=== PATIENT | female | born 1950 | race Caucasian/White ===

== ENCOUNTER 2016-11-19 04:28 | Observation (INO) | payer MEDICARE ==
[2016-11-19] MEDS ORDERED: ASPIRIN 81 MG CHEW PO STA (04:50)
[2016-11-19] MEDS ORDERED: NITROGLYCERIN OINT 1 INCH/GM PACKET TOPICAL STA (04:50)
[2016-11-19] MEDS ORDERED: RX INFO: IV CONTRAST WAS GIVEN 1 EACH MISC MISCELLANE PRN (04:54)
--- NOTE | 2016-11-19 04:54 | ED ---
General Adult HPI - General Source: patient, family, RN notes reviewed Mode of arrival: wheelchair Limitations: no limitations <Mich De Jesus - Last Filed: 11/19/16 04:52> <Aristeo Florez - Last Filed: 11/19/16 08:03> - General Chief complaint: Chest Pain Stated complaint: Chest Pains, nausea Time Seen by Provider: 11/19/16 04:35 - History of Present Illness Initial comments: Patient is a pleasant 66-year-old female presenting to the emergency department complaining of chest discomfort. Onset was a couple days ago. Discomfort has been somewhat steady. Patient has sharp discomfort or 3 patient towards the back. Discomfort is not positional. Discomfort is not exertional. No dyspnea. Patient has been nauseated. No diaphoresis. No history of similar symptoms previously. Symptoms did get somewhat worse earlier however have improved. Discomfort is currently rated 3 or 4/10. (Mich De Jesus) - Related Data Home Medications Medication Instructions Recorded Confirmed Divalproex ER [Depakote ER] 750 mg PO HS 01/05/16 11/19/16 Escitalopram [Lexapro] 20 mg PO HS 01/05/16 11/19/16 LORazepam [Ativan] 0.25 - 0.5 mg PO HS PRN 01/05/16 11/19/16 Levothyroxine Sodium [Synthroid] 50 mcg PO DAILY 01/05/16 11/19/16 Lisinopril [Zestril] 10 mg PO DAILY 01/05/16 11/19/16 Naproxen Sodium [Aleve] 220 - 440 mg PO Q12HR PRN 01/05/16 11/19/16 Simvastatin [Zocor] 40 mg PO HS 01/05/16 11/19/16 Actos (Unknown Strength) 1 tab PO DAILY 11/19/16 11/19/16 Canagliflozin [Invokana] 300 mg PO DAILY 11/19/16 11/19/16 Allergies Allergy/AdvReac Type Severity Reaction Status Date / Time No Known Allergies Allergy Verified 11/19/16 07:35 Review of Systems ROS Other: All systems not noted in ROS Statement are negative. Constitutional: Denies: fever Eyes: Denies: eye pain ENT: Denies: ear pain Respiratory: Denies: cough, dyspnea Cardiovascular: Reports: chest pain Endocrine: Denies: fatigue Gastrointestinal: Reports: nausea. Denies: abdominal pain, vomiting Genitourinary: Denies: urgency Musculoskeletal: Denies: back pain Skin: Denies: rash Neurological: Denies: weakness <NealMich - Last Filed: 11/19/16 04:52> ROS Other: All systems not noted in ROS Statement are negative. <Aristeo Florez - Last Filed: 11/19/16 08:03> ROS Statement: Those systems with pertinent positive or pertinent negative responses have been documented in the HPI. Past Medical History Past Medical History: Diabetes Mellitus, Hyperlipidemia, Hypertension, Thyroid Disorder History of Any Multi-Drug Resistant Organisms: None Reported Past Surgical History: Appendectomy, Cholecystectomy, Hysterectomy Additional Past Surgical History / Comment(s): AORTA REPAIR Past Psychological History: Bipolar Smoking Status: Former smoker Past Alcohol Use History: None Reported Past Drug Use History: None Reported <De JesusMich Maxime Last Filed: 11/19/16 04:52> General Exam Limitations: no limitations General appearance: alert, in no apparent distress Head exam: Present: atraumatic Eye exam: Present: normal appearance, PERRL ENT exam: Present: normal oropharynx Neck exam: Present: normal inspection Respiratory exam: Present: normal lung sounds bilaterally. Absent: chest wall tenderness Cardiovascular Exam: Present: regular rate, normal rhythm Expanded Peripheral pulses: 2+: Radial (R), Radial (L), Dorsalis Pedis (R), Dorsalis Pedis (L) GI/Abdominal exam: Present: soft. Absent: distended, tenderness, guarding, rebound, rigid, pulsatile mass Extremities exam: Present: normal inspection. Absent: pedal edema, calf tenderness Back exam: Present: normal inspection. Absent: tenderness Neurological exam: Present: alert Psychiatric exam: Present: normal affect, normal mood Skin exam: Present: normal color <NealMich Swartz Last Filed: 11/19/16 04:52> General appearance: alert, in no apparent distress Head exam: Present: atraumatic, normocephalic, normal inspection Eye exam: Present: normal appearance, PERRL, EOMI. Absent: scleral icterus, conjunctival injection, periorbital swelling ENT exam: Present: normal exam, mucous membranes moist Neck exam: Present: normal inspection. Absent: tenderness, meningismus, lymphadenopathy Respiratory exam: Present: normal lung sounds bilaterally. Absent: respiratory distress, wheezes, rales, rhonchi, stridor Cardiovascular Exam: Present: regular rate, normal rhythm, normal heart sounds. Absent: systolic murmur, diastolic murmur, rubs, gallop, clicks GI/Abdominal exam: Present: soft, normal bowel sounds. Absent: distended, tenderness, guarding, rebound, rigid Extremities exam: Present: normal inspection, full ROM, normal capillary refill. Absent: tenderness, pedal edema, joint swelling, calf tenderness Back exam: Present: normal inspection Neurological exam: Present: alert, oriented X3, CN II-XII intact Psychiatric exam: Present: normal affect, normal mood Skin exam: Present: warm, dry, intact, normal color. Absent: rash <Aristeo Florez - Last Filed: 11/19/16 08:03> Course <Mich De Jesus - Last Filed: 11/19/16 04:52> <Aristeo Florez - Last Filed: 11/19/16 08:03> Vital Signs 11/19/16 11/19/16 11/19/16 04:33 04:49 05:40 Temperature 98.5 F Pulse Rate 79 78 78 Respiratory 16 18 18 Rate Blood Pressure 214/93 187/90 152/78 O2 Sat by Pulse 89 L 98 100 Oximetry 11/19/16 11/19/16 06:15 06:56 Temperature Pulse Rate 88 75 Respiratory 18 16 Rate Blood Pressure 196/91 159/96 O2 Sat by Pulse 97 100 Oximetry - Reevaluation(s) Reevaluation #1: 11/19/16 08:02 Patient at this point remains with chest pain (Aristeo Florez) EKG Findings - EKG Comments: EKG Findings:: Normal sinus rhythm 78. NC 156. QRS 78. QT 440. QTc 501. Left axis. Normal QRS. Nonspecific T waves. <Mich De Jesus - Last Filed: 11/19/16 04:52> Medical Decision Making <Mich De Jesus - Last Filed: 11/19/16 04:52> - Lab Data Result diagrams: 11/19/16 04:45 11/19/16 04:45 - Radiology Data Radiology results: report reviewed (CTA negative for PE), image reviewed <Aristeo Florez - Last Filed: 11/19/16 08:03> - Medical Decision Making 66 female here with anterior chest pain, anterior chest pain rating to her back. Patient is a CK negative for PE negative for aortic injury or dissection , no aneurysm, patient will be admitted for cardiac observation, telemetry serial troponins. (Aristeo Florez) - Lab Data Lab Results 11/19/16 11/19/16 11/19/16 Range/Units 04:45 04:45 04:45 WBC 9.3 (3.8-10.6) k/uL RBC 5.10 (3.80-5.40) m/uL Hgb 16.0 (11.4-16.0) gm/dL Hct 47.2 H (34.0-46.0) % MCV 92.6 (80.0-100.0) fL MCH 31.5 (25.0-35.0) pg MCHC 34.0 (31.0-37.0) g/dL RDW 13.4 (11.5-15.5) % Plt Count 216 (150-450) k/uL Neutrophils % 47 % Lymphocytes % 42 % Monocytes % 8 % Eosinophils % 1 % Basophils % 1 % Neutrophils # 4.3 (1.3-7.7) k/uL Lymphocytes # 3.9 (1.0-4.8) k/uL Monocytes # 0.7 (0-1.0) k/uL Eosinophils # 0.1 (0-0.7) k/uL Basophils # 0.0 (0-0.2) k/uL PT (9.0-12.0) sec INR (<1.1) APTT (22.0-30.0) sec Sodium 141 (137-145) mmol/L Potassium 4.2 (3.5-5.1) mmol/L Chloride 104 (98-107) mmol/L Carbon Dioxide 26 (22-30) mmol/L Anion Gap 11 mmol/L BUN 12 (7-17) mg/dL Creatinine 0.60 (0.52-1.04) mg/dL Est GFR (MDRD) Af Amer >60 (>60 ml/min/1.73 sqM) Est GFR (MDRD) Non-Af >60 (>60 ml/min/1.73 sqM) Glucose 184 H (74-99) mg/dL Calcium 10.4 H (8.4-10.2) mg/dL Magnesium 1.7 (1.6-2.3) mg/dL Total Bilirubin 0.6 (0.2-1.3) mg/dL AST 52 H (14-36) U/L ALT 59 H (9-52) U/L Alkaline Phosphatase 91 (38-126) U/L Total Creatine Kinase 28 L (30-135) U/L CK-MB (CK-2) 0.3 (0.0-2.4) ng/mL CK-MB (CK-2) Rel Index 1.1 Troponin I <0.012 (0.000-0.034) ng/mL Total Protein 7.7 (6.3-8.2) g/dL Albumin 4.6 (3.5-5.0) g/dL 11/19/ Range/Units 04:45 WBC (3.8-10.6) k/uL RBC (3.80-5.40) m/uL Hgb (11.4-16.0) gm/dL Hct (34.0-46.0) % MCV (80.0-100.0) fL MCH (25.0-35.0) pg MCHC (31.0-37.0) g/dL RDW (11.5-15.5) % Plt Count (150-450) k/uL Neutrophils % % Lymphocytes % % Monocytes % % Eosinophils % % Basophils % % Neutrophils # (1.3-7.7) k/uL Lymphocytes # (1.0-4.8) k/uL Monocytes # (0-1.0) k/uL Eosinophils # (0-0.7) k/uL Basophils # (0-0.2) k/uL PT 11.5 (9.0-12.0) sec INR 1.1 (<1.1) APTT 24.8 (22.0-30.0) sec Sodium (137-145) mmol/L Potassium (3.5-5.1) mmol/L Chloride (98-107) mmol/L Carbon Dioxide (22-30) mmol/L Anion Gap mmol/L BUN (7-17) mg/dL Creatinine (0.52-1.04) mg/dL Est GFR (MDRD) Af Amer (>60 ml/min/1.73 sqM) Est GFR (MDRD) Non-Af (>60 ml/min/1.73 sqM) Glucose (74-99) mg/dL Calcium (8.4-10.2) mg/dL Magnesium (1.6-2.3) mg/dL Total Bilirubin (0.2-1.3) mg/dL AST (14-36) U/L ALT (9-52) U/L Alkaline Phosphatase (38-126) U/L Total Creatine Kinase (30-135) U/L CK-MB (CK-2) (0.0-2.4) ng/mL CK-MB (CK-2) Rel Index Troponin I (0.000-0.034) ng/mL Total Protein (6.3-8.2) g/dL Albumin (3.5-5.0) g/dL Critical Care Time Critical Care Time: Yes Total Critical Care Time: 31 <Aristeo Florez - Last Filed: 11/19/16 08:03> Disposition <Mich De Jesus - Last Filed: 11/19/16 04:52> <Aristeo Florez - Last Filed: 11/19/16 08:03> Clinical Impression: Chest pain Disposition: ADMITTED IP TO THIS HOSP Condition: Undetermined Instructions: Chest Pain (ED) Referrals: Tracie Sams MD [Primary Care Provider] - 1-2 days
[2016-11-19 05:10] LABS: Basophils % (A) 1 %; CH 31.9; CHCM 34.6; Eosinophils # (A) 0.1 k/uL (0-0.7); Eosinophils % (A) 1 %; HCT 47.2 % (34.0-46.0); HDW 2.57; Luc # (Auto) 0.25; Luc % (Auto) 3; Lymphocytes # (A) 3.9 k/uL (1.0-4.8); Lymphocytes % (A) 42 %; MCH 31.5 pg (25.0-35.0); MCV 92.6 fL (80.0-100.0); Mean Platelet Volume 8.2; Monocytes # (A) 0.7 k/uL (0-1.0); Monocytes % (A) 8 %; Neutrophils # (A) 4.3 k/uL (1.3-7.7); Neutrophils % (A) 47 %; RDW 13.4 % (11.5-15.5); WBC 9.3 k/uL (3.8-10.6); WBC (Perox) 9.22
[2016-11-19 05:21] LABS: ALT 59 U/L (9-52); AST 52 U/L (14-36); Alkaline Phosphatase 91 U/L (38-126); Anion Gap 11 mmol/L; Blood Urea Nitrogen 12 mg/dL (7-17); Calcium 10.4 mg/dL (8.4-10.2); Carbon Dioxide 26 mmol/L (22-30); Chloride 104 mmol/L (98-107); Glucose 184 mg/dL (74-99); Magnesium 1.7 mg/dL (1.6-2.3); Non-African American GFR(MDRD) >60 (>60 ml/min/1.73 sqM); Potassium 4.2 mmol/L (3.5-5.1); Sodium 141 mmol/L (137-145); Total Bilirubin 0.6 mg/dL (0.2-1.3); Total Protein 7.7 g/dL (6.3-8.2)
[2016-11-19 05:30] LABS: Creatine Kinase 28 U/L (30-135)
[2016-11-19 05:33] LABS: INR 1.1 (<1.1); Partial Thromboplastin Time 24.8 sec (22.0-30.0); Prothrombin Time 11.5 sec (9.0-12.0)
[2016-11-19 05:44] LABS: Creatine Kinase MB 0.3 ng/mL (0.0-2.4); Troponin I <0.012 ng/mL (0.000-0.034)
[2016-11-19] MEDS ORDERED: LISINOPRIL 10 MG TAB PO STA (06:17)
--- NOTE | 2016-11-19 07:22 | CT ---
CTA CHEST, ABDOMEN AND PELVIS WITHOUT AND WITH CONTRAST. History: Reason: Pain Technique more: Multiplanar CT chest, abdomen and pelvis with and without contrast using dissection protocol. Reformatted images in the sagittal and coronal planes obtained on noncontrast portion of exam along with MIP images in the coronal and sagittal plane on arterial phase imaging. This CT exam was performed using one or more of the following dose reduction techniques: automated exposure control, adjustment of the mA and/or kV according to patient size, and/or use of iterative reconstruction technique. DLP: 897.20 mGy- cm. Comparison: 06/12/14 CT ABDOMEN AND PELVIS FINDINGS: Vascular findings: Borderline ectasia of the ascending aorta which measures slightly less than 4 cm maximum caliber. Aneurysmal thoracic aorta defined as 5 cm with ectatic between 4-5 cm. No AAA. Atherosclerotic changes. No dissection. Vascular surgical changes again noted with aortoiliac grafts. Grafts are patent. There is good flow through the imaged femoral arteries on arterial phase imaging. 5 mm axial slice thickness limits evaluation for small peripheral PE. No central PE. Non vascular findings: Small hiatal hernia. Cardiomegaly. Atelectasis. No consolidation. No CT evidence for edema. No effusions. No urinary calculi or hydronephrosis. No evidence for acute pancreatitis. Diverticulosis without diverticulitis. Ventral hernia mesh. Similar-appearing mild fat herniation. No visceral herniation. No bowel obstruction. Old granulomatous disease. Cholecystectomy. Appendix is not identified with confidence. Possible appendiceal stump versus normal diminutive retrocecal appendix or diverticula. There is suspected surgical changes in the right lower quadrant. Query prior appendectomy. No right lower quadrant inflammatory process. Left renal cyst. No evidence for acute pancreatitis. Osseous degenerative changes. IMPRESSION: No aortic aneurysm or dissection. Vascular surgical changes with patent aortoiliac grafts. Other findings as discussed in body of report.
[2016-11-19] MEDS ORDERED: HEPARIN SODIUM,PORCINE 5,000 UNIT/ML 1 ML VIAL IV ONE (07:57)
[2016-11-19] MEDS ORDERED: NITROGLYCERIN SL TABS 0.4 MG TAB SUBLINGUAL PRN (07:57)
[2016-11-19] MEDS ORDERED: HEPARIN SODIUM,PORCINE/D5W PMX 25,000 UNIT in DEXTROSE/WATER 1 500ML.BAG IV SCH (08:00)
[2016-11-19] MEDS ORDERED: SODIUM CHLORIDE 0.9% 1,000 ML IV STA ×2 (08:09)
[2016-11-19] MEDS ORDERED: MORPHINE SULFATE 4 MG/ML SYRINGE IVP STA (08:09)
[2016-11-19] MEDS ORDERED: SODIUM CHLORIDE 0.9% 500 ML IV STA (08:09)
[2016-11-19] MEDS ORDERED: MORPHINE SULFATE 4 MG/ML SYRINGE IVP PRN (08:09)
[2016-11-19 08:58] VITALS: RESP 18
[2016-11-19] MEDS ORDERED: ATORVASTATIN 80 MG TAB PO SCH ×2 (09:00→21:00)
[2016-11-19] MEDS ORDERED: METOPROLOL TARTRATE 25 MG TAB PO SCH (10:30)
[2016-11-19 11:14] LABS: Creatine Kinase 27 U/L (30-135)
[2016-11-19 11:26] LABS: Creatine Kinase MB 0.2 ng/mL (0.0-2.4); Troponin I <0.012 ng/mL (0.000-0.034)
[2016-11-19] MEDS ORDERED: LORazepam 0.5 MG TAB PO PRN (11:28)
--- NOTE | 2016-11-19 11:36 | P.HPIM ---
History of Present Illness H&P Date: 11/19/16 Chief Complaint: Chest pain This is a 66-year-old female with past medical history noted below significant for type 2 diabetes mellitus, essential hypertension, and hyperlipidemia who presented to the emergency room with chest pain. Patient said that her pain started couple of days ago. Initially she was not concerned about it and she thought it was more of acid reflux. Subsequently the pain is getting worse. She described her pain as sharp in nature. There was no radiation and was located in the middle of her chest. She said her pain was associated with nausea and some lightheadedness. She rates her pain as 10 out of 10 in severity at its worse. She was more concerned last night and decided to come to the emergency room. In the emergency room, 12-lead EKG showed no acute ischemic changes. First 2 sets of troponin were negative. Patient was started on IV heparin drip and is admitted to the observation unit. She underwent a CT angiogram in the emergency room that was negative for any aortic dissection. Review of Systems Review of system: 14 points review of systems were obtained and were negative except to what were mentioned in the HPI. Past Medical History Past Medical History: Diabetes Mellitus, Hyperlipidemia, Hypertension, Pneumonia , Thyroid Disorder Additional Past Medical History / Comment(s): NIDDM type II, hypothyroid, PAD, bronchitis, sinus problems, back pain with R sided sciatica, RLS. History of Any Multi-Drug Resistant Organisms: None Reported Past Surgical History: Appendectomy, Breast Surgery, Cholecystectomy, Hernia Repair, Hysterectomy, Tubal Ligation Additional Past Surgical History / Comment(s): Aortobifemoral bypass, ventral hernia repair, colonoscopy with benign polypectomy, bilateral cataract removal with lens implants, benign L breast bx. Past Anesthesia/Blood Transfusion Reactions: No Reported Reaction, Motion Sickness Past Psychological History: Bipolar Additional Psychological History / Comment(s): Pt states she is well managed with her medication for her bipolar disease. She resides with her spouse and is independent. Smoking Status: Former smoker Past Alcohol Use History: None Reported Additional Past Alcohol Use History / Comment(s): Pt started smoking in 1963 and quit in 2008. Past Drug Use History: None Reported - Past Family History Father Family Medical History: Cancer Additional Family Medical History / Comment(s): Father of prostate cancer at the age of 84 yrs. Mother Additional Family Medical History / Comment(s): Mother had heart problems and at the age of 64yrs. Pt states her mother never had a PR. Medications and Allergies Home Medications Medication Instructions Recorded Confirmed Type Divalproex ER [Depakote ER] 750 mg PO HS 01/05/16 11/19/16 History Escitalopram [Lexapro] 20 mg PO HS 01/05/16 11/19/16 History LORazepam [Ativan] 0.25 - 0.5 mg PO HS PRN 01/05/16 11/19/16 History Levothyroxine Sodium [Synthroid] 50 mcg PO DAILY 01/05/16 11/19/16 History Lisinopril [Zestril] 10 mg PO DAILY 01/05/16 11/19/16 History Naproxen Sodium [Aleve] 220 - 440 mg PO Q12HR PRN 01/05/16 11/19/16 History Simvastatin [Zocor] 40 mg PO HS 01/05/16 11/19/16 History Canagliflozin/Metformin HCl 1 tab PO DAILY 11/19/16 11/19/16 History [Invokamet 150-1,000 mg Tablet] Pioglitazone [Actos] 45 mg PO DAILY 11/19/16 11/19/16 History Allergies Allergy/AdvReac Type Severity Reaction Status Date / Time No Known Allergies Allergy Verified 11/19/16 07:35 Physical Exam Vitals: Vital Signs Temp Pulse Pulse Resp BP BP Pulse Ox 11/19/16 09:50 71 18 11/19/16 09:28 97.6 F 71 18 121/58 92 L 11/19/16 08:57 97.9 F 76 18 134/63 97 11/19/16 08:00 80 18 156/77 97 11/19/16 06:56 75 16 159/96 100 11/19/16 06:15 88 18 196/91 97 11/19/16 05:40 78 18 152/78 100 11/19/16 04:49 78 18 187/90 98 11/19/16 04:33 98.5 F 79 16 214/93 89 L Intake and Output 11/18/16 11/19/16 11/19/16 22:59 06:59 14:59 Other: Voiding Method Toilet Weight 59.874 kg 62 kg Patient Weight 11/20/16 06:59 Weight 62 kg General: The patient is awake and alert, in no distress Eye: there is normal conjunctiva bilaterally. Neck: The neck is supple, there is no JVD. Cardiovascular: Normal S1-S2, no S3-S4, no murmurs. Respiratory: Lungs clear to auscultation bilaterally Gastrointestinal: Abdomen is soft, nontender Musculoskeletal: There is no pedal edema. Neurological:. Speech is normal. Skin: Skin is warm and dry Results CBC & Chem 7: 11/19/16 04:45 11/19/16 04:45 Labs: Abnormal Lab Results - Last 24 Hours (Table) 11/19/16 11/19/16 11/19/16 Range/Units 04:45 04:45 04:45 Hct 47.2 H (34.0-46.0) % Glucose 184 H (74-99) mg/dL Calcium 10.4 H (8.4-10.2) mg/dL AST 52 H (14-36) U/L ALT 59 H (9-52) U/L Total Creatine Kinase 28 L (30-135) U/L 11/19/16 Range/Units 10:20 Hct (34.0-46.0) % Glucose (74-99) mg/dL Calcium (8.4-10.2) mg/dL AST (14-36) U/L ALT (9-52) U/L Total Creatine Kinase 27 L (30-135) U/L Thrombosis Risk Factor Assmnt - Choose All That Apply Any of the Below Risk Factors Present?: Yes Other Risk Factors: Yes Each Risk Factor Represents 2 Points: Age 61-74 years Other congenital or acquired thrombophilia - If yes, enter type in comment: No Thrombosis Risk Factor Assessment Total Risk Factor Score: 2 Thrombosis Risk Factor Assessment Level: Low Risk Assessment and Plan Plan: 1. Chest pain with typical and atypical features. 12 leads EKG showed no acute ischemic changes. CT angiogram in the emergency room showed no evidence of aortic dissection. Patient was seen and evaluated by cardiology. Third set of troponin ordered. If that's negative plan is to proceed with cardiac stress testing. 2. Essential hypertension: Blood pressure well-controlled 3. Mixed hyperlipidemia: Will check fasting lipid profile 4. Type 2 diabetes mellitus: Hold oral agents for now and continue sliding scale insulin
[2016-11-19] MEDS ORDERED: REGADENOSON 0.4 MG/5 ML SYRINGE IV ONE (11:57)
[2016-11-19] MEDS ORDERED: AMINOPHYLLINE 500 MG/20 ML VIAL IV PRN (11:57)
--- NOTE | 2016-11-19 12:04 | CONS ---
DATE OF CONSULTATION: Mrs. Lubin is a 66-year-old female who came to the emergency room with the complaint of chest discomfort. Patient gives a history that she has been having this chest discomfort for a couple of days. The pain is sharp, also radiates towards the back and somewhat steady. Pain does increase at times with breathing. She denies any nausea. Patient has been slightly nauseated. No vomiting. Patient denies any history of exertional angina. Patient denies any prior history of myocardial infarction. Patient does have a history of peripheral vascular disease with aortobifemoral surgery done in 2008. Her physical activities are limited. However, she is not having any significant intermittent claudication. Patient has a history of diabetes. Home medications include Depakote, Lexapro, Ativan, Synthroid, Zestril, Zocor and Invokana. Past medical history includes a history of diabetes, hyperlipidemia, hypertension, history of thyroid disorder, appendectomy, cholecystectomy, hysterectomy and aortobifemoral surgery. Patient does have a smoking history, patient is a former smoker. Physical examination at present reveals a 66-year-old female who does not appear to be in any acute distress. Patient's vital signs were stable in the emergency room. Blood pressure is 121/58 mmHg, heart rate is 70 per minute, respiratory rate is 18. HEENT examination is negative. Neck is supple. There is no increase in jugular venous pressure. Both the carotid pulses are felt. There is no bruit. Chest is symmetrical. HEART: The PMI is not felt. First and second heart sounds are normal. There is no evidence of any murmur. Lungs are clinically clear to auscultation and percussion. Abdomen is soft. Liver and spleen are not enlarged. EXTREMITIES: Peripheral pulsations are not felt. Both femoral pulses are felt. EKG shows a normal sinus rhythm without any acute ischemic changes. The first set of troponin was normal. Patient's electrolytes are normal. Creatinine is 0.6. FINAL IMPRESSION: 1. Clinically, this patient's chest pains are suggestive of atypical angina. 2. Patient has a history of diabetes. 3. History of peripheral vascular disease with status post aortobifemoral surgery. The CAT scan does not show any evidence of dissection or any evidence of dilated aorta. RECOMMENDATIONS: We will wait for the second troponin. If the troponin is negative, we will schedule the patient for Lexiscan Cardiolite study, echo and Doppler study will be done. We will treat the patient with Lipitor 80 mg daily.
[2016-11-19 12:23] LABS: Glucose,Whole Blood 140 mg/dL (75-99)
--- NOTE | 2016-11-19 14:12 | EST ---
DATE OF SERVICE: 11/19/2016 AGE: 66Y SEX: F HT: 60" WT: 136 lbs. Lexiscan Cardiolite Stress Test *Heart Rate Blood Pressure *Rest: 63 Rest: 129/63 * *Max. Achieved: 63 Maximum BP: 129/63 85% PMHR: 129 100% PMHR: 152 *METS: - INDICATIONS: Chest pain. MEDICATIONS: - Patient was given Lexiscan injection over a period of 15 seconds. Peak heart rate of 63 was achieved. Maximum blood pressure of 129/63 mmHg of mercury was noted. Resting EKG shows normal sinus rhythm with normal RI interval and QRS duration and normal ST-T waves. No ST segment depression suggestive of ischemia was noted. Results of the nuclear study will follow.
--- NOTE | 2016-11-19 14:56 | NM ---
EXAMINATION TYPE: NM stress lexiscan cardiolite DATE OF EXAM: 11/19/2016 COMPARISON: NONE HISTORY: Chest pain TECHNIQUE: After the intravenous administration of 10.6 mCi Tc 99m Sestamibi - Cardiolite resting SP ECT images acquired 45 minutes post injection. The patient received 0.4mg Lexiscan, 25 mCi Tc 99m Sestamibi - Stress images obtained 30 minutes post injection FINDINGS: Review of stress and rest SPECT images demonstrates no distinct perfusion abnormality. Gated analysi s shows normal wall motion with an estimated left ventricular ejection fraction of 69 %. IMPRESSION: No scintigraphic evidence for reversible ischemia.
[2016-11-19 16:05] LABS: Creatine Kinase 26 U/L (30-135)
[2016-11-19 16:19] LABS: Creatine Kinase MB 0.3 ng/mL (0.0-2.4); Troponin I <0.012 ng/mL (0.000-0.034)
--- NOTE | 2016-11-19 16:59 | P.DS ---
Providers Date of admission: 11/19/16 08:02 Expected date of discharge: 11/19/16 Attending physician: Katie Bailey Consults: 11/19/16 07:58 Consult Physician Urgent Consulting Provider: Ellis Shearer Reason/Comments: cp Do you want consulting provider notified?: Yes Primary care physician: Tracie Sams [facility] Course: 1. Chest pain with typical and atypical features. 12 leads EKG showed no acute ischemic changes. CT angiogram in the emergency room showed no evidence of aortic dissection. Patient was seen and evaluated by cardiology. She underwent a Lexiscan cardiac stress test that was negative. She was cleared for discharge home. 2. Essential hypertension: Blood pressure well-controlled 3. Mixed hyperlipidemia 4. Type 2 diabetes mellitus Patient Condition at Discharge: Undetermined Plan - Discharge Summary New Discharge Prescriptions: No Action Lisinopril [Zestril] 10 mg PO DAILY Levothyroxine Sodium [Synthroid] 50 mcg PO DAILY Simvastatin [Zocor] 40 mg PO HS LORazepam [Ativan] 0.25 - 0.5 mg PO HS PRN PRN Reason: Insomnia Escitalopram [Lexapro] 20 mg PO HS Divalproex ER [Depakote ER] 750 mg PO HS Naproxen Sodium [Aleve] 220 - 440 mg PO Q12HR PRN PRN Reason: Pain Canagliflozin/Metformin HCl [Invokamet 150-1,000 mg Tablet] 1 tab PO DAILY Pioglitazone [Actos] 45 mg PO DAILY Discharge Medication List Divalproex ER [Depakote ER] 750 mg PO HS 01/05/16 [History] Escitalopram [Lexapro] 20 mg PO HS 01/05/16 [History] LORazepam [Ativan] 0.25 - 0.5 mg PO HS PRN 01/05/16 [History] Levothyroxine Sodium [Synthroid] 50 mcg PO DAILY 01/05/16 [History] Lisinopril [Zestril] 10 mg PO DAILY 01/05/16 [History] Naproxen Sodium [Aleve] 220 - 440 mg PO Q12HR PRN 01/05/16 [History] Simvastatin [Zocor] 40 mg PO HS 01/05/16 [History] Canagliflozin/Metformin HCl [Invokamet 150-1,000 mg Tablet] 1 tab PO DAILY 11/19 [History] Pioglitazone [Actos] 45 mg PO DAILY 11/19/16 [History] Follow up Appointment(s)/Referral(s): Tracie Sams MD [Primary Care Provider] - 1-2 days Patient Instructions/Handouts: Chest Pain (ED)
[2016-11-19 17:18] LABS: Glucose,Whole Blood 171 mg/dL (75-99)
[2016-11-19 17:20] VITALS: BP 109/45; PULSE 69; TEMP 97.7
[2016-11-19] MEDS ORDERED: DIVALPROEX ER 250 MG TAB.ER.24H PO SCH (21:00)
[2016-11-19] MEDS ORDERED: ESCITALOPRAM 20 MG TAB PO SCH (21:00)
[2016-11-20] MEDS ORDERED: LEVOTHYROXINE 50 MCG TAB PO SCH (06:30)
[2016-11-20] MEDS ORDERED: LISINOPRIL 10 MG TAB PO SCH (09:00)
[2016-11-20] MEDS ORDERED: ASPIRIN 325 MG TAB PO SCH (09:00)
--- NOTE | 2016-11-20 10:08 | ECHOF ---
Referral Reason: MEASUREMENTS -------- HEIGHT: 152.4 cm WEIGHT: 61.7 kg BP: 121/58 RVIDd: 3.0 cm (< 3.3) IVSd: 1.0 cm (0.6 - 1.1) LVIDd: 4.4 cm (3.9 - 5.3) LVPWd: 1.0 cm (0.6 - 1.1) IVSs: 1.6 cm LVIDs: 2.8 cm LVPWs: 1.7 cm LAESV Index (A-L): 15.00 ml/m Ao Diam: 3.4 cm (2.0 - 3.7) AV Cusp: 1.6 cm (1.5 - 2.6) LA Diam: 2.8 cm (2.7 - 3.8) MV E Vinnie: 1.02 m/s MV DecT: 318 ms MV A Vinnie: 1.27 m/s MV E/A Ratio: 0.80 RAP: 5.00 mmHg RVSP: 27.13 mmHg FINDINGS -------- Sinus rhythm. This was a technically adequate study. Overall left ventricular systolic function is normal with, an EF between 55 - 60 %. The right ventricle is normal in size and function. Normal LA size by volume 22+/-6 ml/m2. The right atrium is normal in size. Aortic valve is trileaflet and is mildly thickened. There is no evidence of aortic regurgitation. There is no evidence of aortic stenosis. Mild mitral annular calcification present. There is trace to mild mitral regurgitation. Trace tricuspid regurgitation present. There is no evidence of pulmonary hypertension. The right ventricular systolic pressure, as measured by Doppler, is 27.13mmHg. The pulmonic valve was not well visualized. The aortic root size is normal. Normal inferior vena cava with normal inspiratory collapse consistent with estimated right atrial pressure of 5 mmHg. The pericardium is normal. There is no pericardial effusion. CONCLUSIONS -------- 1. Sinus rhythm. 2. The right ventricular systolic pressure, as measured by Doppler, is 27.13mmHg. 3. The pulmonic valve was not well visualized. 4. The aortic root size is normal. 5. There is no pericardial effusion. 6. This was a technically adequate study. 7. Overall left ventricular systolic function is normal with, an EF between 55 - 60 %. 8. Normal LA size by volume 22+/-6 ml/m2. 9. Aortic valve is trileaflet and is mildly thickened. 10. Mild mitral annular calcification present. 11. There is trace to mild mitral regurgitation. 12. Trace tricuspid regurgitation present. 13. There is no evidence of pulmonary hypertension. FILTER FILLER: Holden Cazares RDCS
== END 2016-11-19 18:50 | disposition home or self-care (01) ==
LOC: EC 04:28 → 3OBS 08:02
PROVIDERS: ADMIT Internal Medicine; ATTEND Internal Medicine
DX: R07.89 Other chest pain (principal); Z79.899 Other long term (current) drug therapy; I10 Essential (primary) hypertension; E78.2 Mixed hyperlipidemia; E11.9 Type 2 diabetes mellitus without complications; E07.9 Disorder of thyroid, unspecified; Z87.891 Personal history of nicotine dependence; F31.9 Bipolar disorder, unspecified; I73.9 Peripheral vascular disease, unspecified; R42 Dizziness and giddiness; R11.0 Nausea; G25.81 Restless legs syndrome; Z79.84 Long term (current) use of oral hypoglycemic drugs; E03.9 Hypothyroidism, unspecified; Z82.49 Family history of ischemic heart disease and other diseases of the circulatory system
CPT/HCPCS: 96376; 96365; 96375; 99291; 36415; 93005; 93017; 93306; 80053; 82550; 82553; 83690; 83735; 84484; 85025; 85610; 85730; 75635; 71275; 78452; G0378; A9500; J2270; J1644 ×2; Q9967; J2785

== ENCOUNTER → 2018-10-16 | Outpatient (CLI) | payer MEDICARE ==
--- NOTE | 2018-10-16 15:56 | BD ---
EXAMINATION TYPE: Axial Bone Density DATE OF EXAM: 10/16/2018 COMPARISON: NONE CLINICAL HISTORY: Postmenopausal female. Osteoporosis screening. Height: 60 Weight: 139.7 FRAX RISK QUESTIONS: Alcohol (3 or more units per day): no Family History (Parent hip fracture): no Glucocorticoids (More than 3mos): no (Ex: prednisone, prednisolone, methylprednisolone, dexamethasone, and hydrocortisone). History of Fracture in Adulthood: no Secondary Osteoporosis: 1. Type 1 Diabetes: no 2. Hyperthyroidism: no 3. Menopause before 45: no 4. Malnutrition: no 5. Chronic liver disease: no Rheumatoid Arthritis: no Current Tobacco Use: no RISK FACTORS HISTORY OF: Family History of Osteoporosis: yes Active: yes Diet low in dairy products/other sources of calcium: yes Postmenopausal woman: hysterectomy 2009 Lost more than 2 inches in height since high school: no MEDICATIONS: diabetic type 2 meds Thyroid Medications: synthroid How Lon years Additional History: EXAM MEASUREMENTS: Bone mineral densitometry was performed using the Docin System. Bone mineral density as measured about the Lumbar spine is: ----- L1-L4(G/cm2): 1.049 T Score Values are as follows: ----- L2: -1.3 ----- L3: -1.3 ----- L4: -1.4 ----- L1-L4: -1.4 Bone mineral density : baseline Bone mineral density about the R hip (g/cm2): 0.695 Bone mineral density about the L hip (g/cm2): 0.770 T Score values are as follows: -----R Neck: -2.5 -----L Neck: -1.9 -----R Total: -1.4 -----L Total: -1.1 Bone mineral density : baseline IMPRESSION: Osteopenia (T Score between -2.5 and -1). There is slightly increased risk of fracture and the patient may be considered for treatment. Re-Screen 2-5 years. NOTE: T-SCORE=SD OF THE YOUNG ADULT MEAN.
--- NOTE | 2018-10-17 08:47 | MM ---
Reason for exam: screening (asymptomatic). Last mammogram was performed 7 years and 4 months ago. History: Patient is postmenopausal. Family history of breast cancer in cousin. Benign stereotactic core biopsy of the right breast, August 23, 2003. 2 core biopsies of the right breast. Took estrogen for 1 year. Physical Findings: A clinical breast exam by your physician is recommended on an annual basis and results should be correlated with mammographic findings. MG 3D Screening Mammo W/Cad Bilateral CC and MLO view(s) were taken. Prior study comparison: June 27, 2011, bilateral digital screening mammo w/CAD. September 01, 2007, bilateral digital screening mammogram. The breast tissue is heterogeneously dense. This may lower the sensitivity of mammography. Stable benign calcifications. There is chronic nodularity bilaterally. There is no dominant lesion. No significant changes when compared with prior studies. ASSESSMENT: Benign, BI-RAD 2 RECOMMENDATION: Routine screening mammogram of both breasts in 1 year.
== END | disposition home or self-care (01) ==
LOC: RADMAMWWP 14:38
PROVIDERS: ATTEND Family Medicine
DX: Z12.31 Encounter for screening mammogram for malignant neoplasm of breast (principal); M89.9 Disorder of bone, unspecified; M85.80 Other specified disorders of bone density and structure, unspecified site
CPT/HCPCS: 77063; 77067; 77080

== ENCOUNTER → 2018-12-31 | Outpatient (CLI) | payer MEDICARE ==
[2018-12-31 19:32] LABS: African American GFR (CKD) 101.7 (60.0-200.0)
== END | disposition home or self-care (01) ==
LOC: LABWHC1 12:41
PROVIDERS: ATTEND Psychiatry & Neurology Neurology
DX: Z01.812 Encounter for preprocedural laboratory examination (principal)
CPT/HCPCS: 36415; 82565; 84520

== ENCOUNTER → 2019-03-06 | Outpatient (CLI) | payer MEDICARE ==
[2019-03-06 14:00] LABS: Basophils % (A) 1 %; Eosinophils # (A) 0.1 k/uL (0-0.7); Eosinophils % (A) 2 %; HCT 43.6 % (34.0-46.0); HGB 14.6 gm/dL (11.4-16.0); Lymphocytes # (A) 3.9 k/uL (1.0-4.8); Lymphocytes % (A) 47 %; MCH 31.9 pg (25.0-35.0); MCHC 33.5 g/dL (31.0-37.0); MCV 95.2 fL (80.0-100.0); Mean Platelet Volume 7.6; Monocytes # (A) 0.5 k/uL (0-1.0); Monocytes % (A) 6 %; Neutrophils # (A) 3.6 k/uL (1.3-7.7); Neutrophils % (A) 43 %; Platelet Count 154 k/uL (150-450); RBC 4.58 m/uL (3.80-5.40); RDW 12.8 % (11.5-15.5); WBC 8.4 k/uL (3.8-10.6)
[2019-03-06 15:23] LABS: Erythrocyte Sedimentation Rate 8 mm/hr (0-20)
[2019-03-06 20:38] LABS: Hemoglobin A1C 11.3 % (4.0-6.0)
[2019-03-06 21:23] LABS: Protein, Total 6.7 g/dL (6.2-8.2)
[2019-03-06 21:46] LABS: African American GFR (CKD) 86.6 (60.0-200.0); Albumin 4.3 g/dL (3.80-4.90); Albumin/Globulin Ratio 2.15 (1.60-3.17); BUN/Creat Ratio 12.5 Ratio (12.00-20.00); Calcium 9.1 mg/dL (8.7-10.3); Potassium 4.3 mmol/L (3.5-5.5); Total Bilirubin 0.4 mg/dL (0.2-1.2); Total Protein 6.3 g/dL (6.2-8.2)
[2019-03-09 14:02] LABS: Albumin 3.85 g/dL (3.80-4.90); Gamma Globulin 0.78 g/dL (0.70-1.50)
== END | disposition home or self-care (01) ==
LOC: LABWHC1 12:36
PROVIDERS: ATTEND Psychiatry & Neurology Neurology
DX: G62.9 Polyneuropathy, unspecified (principal); E11.9 Type 2 diabetes mellitus without complications; R20.0 Anesthesia of skin; R26.89 Other abnormalities of gait and mobility
CPT/HCPCS: 36415; 80053; 82607; 82747; 83036; 84165; 85025; 85652; 86038; 86235

== ENCOUNTER 2019-05-30 16:41 | Emergency (ER) | payer MEDICARE ==
[2019-05-30 17:46] VITALS: RESP 18
[2019-05-30 18:53] LABS: Appearance,Urine Cloudy (Clear); Bilirubin,Urine Negative (Negative); Blood,Urine Negative (Negative); Color,Urine Yellow; Glucose,Urine (UA) 4+ (Negative); Hyaline Casts,Urine 28 /lpf (0-2); Ketones,Urine Trace (Negative); Leukocyte Esterase,Urine Moderate (Negative); Mucus,Urine Rare /hpf; Nitrite,Urine Negative (Negative); PH, Urine 5.5 (5.0-8.0); Protein,Urine Negative (Negative); RBC,Urine 2 /hpf (0-5); Specific Gravity,Urine 1.029 (1.001-1.035); Squamous Epithelial Cell,Urine 3 /hpf (0-4); WBC,Urine 4 /hpf (0-5)
--- NOTE | 2019-05-30 18:55 | CT ---
EXAMINATION TYPE: CT brain julia villarreal con DATE OF EXAM: 05/30/2019 COMPARISON: None HISTORY: Fall injury, dizziness CT DLP: 1269.6 mGycm Automated exposure control for dose reduction was used. Multiple axial sections were obtained of the brain without contrast. Multiple axial sections were obt ained from the skull base to T1 vertebra without contrast. FINDINGS: There is normal alignment of the vertebra. There is mild spurring of the endplates in the lower cervi annette spine. There is mild hypertrophic cervical facet arthropathy. The skull base is intact. There is no evidence of cervical spine fracture. There is diffuse cerebral cortical atrophy. There is no mass effect nor midline shift. There is no si gn of intracranial hemorrhage. There is some patchy hypodensity in the anterior right internal capsul e related to old lacunar infarcts. The calvarium is intact. IMPRESSION: Cerebral atrophy and chronic small vessel ischemia. No acute intracranial abnormality. Mild spondylotic changes in the cervical spine. No fracture seen.
--- NOTE | 2019-05-30 19:19 | XR ---
EXAMINATION TYPE: XR lumbar spine 2 or 3V DATE OF EXAM: 05/30/2019 COMPARISON: NONE HISTORY: Back pain TECHNIQUE: 3 views FINDINGS: Lumbar vertebra have fairly normal alignment. Disc spaces are normal for age. There is no c ompression fracture. Posterior elements are intact. There are multiple calcifications in the pancreas consistent with chronic pancreatitis. Sacroiliac joints appear normal. IMPRESSION: Minor degenerative changes in the lumbar spine. No fracture. Changes of chronic pancreatitis that is new compared to old exam. No fracture.
--- NOTE | 2019-05-30 19:25 | ED ---
Fall HPI - General Chief Complaint: Fall Stated Complaint: Fall, poss dehydration Time Seen by Provider: 05/30/19 17:56 Source: patient Mode of arrival: wheelchair - History of Present Illness Initial Comments: Patient is 69-year-old female resenting to the emergency department with a chief complaint of a fall. Daughter reports the patient was walking up the stairs when she tripped and fell back. Patient reports hitting her head but never lost consciousness. Patient also reports some lumbosacral pain is exacerbated with an ablation. Patient does report some bilateral arm pain that is only mild. No alleviating or aggravating factors there. Patient does not take blood thinners. The incident occurred yesterday. Daughter states patient has episodes of orthostatic hypotension and this is known to her. Daughter states the patient has not been drinking fluids as normal. Patient reports having increased urine output over the last month. Denies any associated chills. Does not take blood thinners. - Related Data Home Medications Medication Instructions Recorded Confirmed Divalproex ER [Depakote ER] 750 mg PO HS 01/05/16 11/19/16 Escitalopram [Lexapro] 20 mg PO HS 01/05/16 11/19/16 LORazepam [Ativan] 0.25 - 0.5 mg PO HS PRN 01/05/16 11/19/16 Levothyroxine Sodium [Synthroid] 50 mcg PO DAILY 01/05/16 11/19/16 Lisinopril [Zestril] 10 mg PO DAILY 01/05/16 11/19/16 Naproxen Sodium [Aleve] 220 - 440 mg PO Q12HR PRN 01/05/16 11/19/16 Simvastatin [Zocor] 40 mg PO HS 01/05/16 11/19/16 Canagliflozin/Metformin HCl 1 tab PO DAILY 11/19/16 11/19/16 [Invokamet 150-1,000 mg Tablet] Pioglitazone [Actos] 45 mg PO DAILY 11/19/16 11/19/16 Allergies Allergy/AdvReac Type Severity Reaction Status Date / Time No Known Allergies Allergy Verified 05/30/19 17:46 Review of Systems ROS Statement: Those systems with pertinent positive or pertinent negative responses have been documented in the HPI. ROS Other: All systems not noted in ROS Statement are negative. Past Medical History Past Medical History: Diabetes Mellitus, Hyperlipidemia, Hypertension, Pneumonia, Thyroid Disorder Additional Past Medical History / Comment(s): NIDDM type II, hypothyroid, PAD, bronchitis, sinus problems, back pain with R sided sciatica, RLS. History of Any Multi-Drug Resistant Organisms: None Reported Past Surgical History: Appendectomy, Breast Surgery, Cholecystectomy, Hernia Repair, Hysterectomy, Tubal Ligation Additional Past Surgical History / Comment(s): Aortobifemoral bypass, ventral hernia repair, colonoscopy with benign polypectomy, bilateral cataract removal with lens implants, benign L breast bx. Past Anesthesia/Blood Transfusion Reactions: No Reported Reaction, Motion Sickness Past Psychological History: Bipolar Smoking Status: Former smoker Past Alcohol Use History: None Reported Past Drug Use History: None Reported - Past Family History Father Family Medical History: Cancer Additional Family Medical History / Comment(s): Father of prostate cancer at the age of 84 yrs. Mother Additional Family Medical History / Comment(s): Mother had heart problems and at the age of 64yrs. Pt states her mother never had a NC. General Exam Limitations: physical limitation General appearance: alert, in no apparent distress Head exam: Present: atraumatic (No signs of trauma to the head.), normocephalic, normal inspection. Absent: other (Negative Ro sign, negative raccoon eyes, negative hemotympanum.) Eye exam: Present: normal appearance, PERRL, EOMI Pupils: Present: normal accommodation ENT exam: Present: normal exam, normal oropharynx, mucous membranes moist, TM's normal bilaterally, normal external ear exam Neck exam: Present: normal inspection, full ROM Respiratory exam: Present: normal lung sounds bilaterally Cardiovascular Exam: Present: regular rate, normal rhythm, normal heart sounds Extremities exam: Present: normal inspection, full ROM Back exam: Present: normal inspection, full ROM Neurological exam: Present: alert, oriented X3 Psychiatric exam: Present: normal affect, normal mood, depressed, agitated Skin exam: Present: warm, dry, intact, normal color Course Vital Signs 05/30/19 05/30/19 17:44 19:32 Temperature 98.2 F 98 F Pulse Rate 82 84 Respiratory 18 18 Rate Blood Pressure 121/73 139/75 O2 Sat by Pulse 97 94 L Oximetry Medical Decision Making - Medical Decision Making Patient is 69-year-old female presenting to emergency Department with a chief complaint of a fall. On examination no signs of trauma to the head and no. Patient was complaining of some bilateral arm pain, however on examination she only has mild tenderness near shoulder region bilaterally and she has full active and passive range of motion. I don't suspect any significant injury other than some pain from the fall. Patient does have some paraspinal tenderness in the lumbosacral region. No vertebral tenderness. CT of the brain and C-spine is negative for acute fractures, dislocations, specific apparent lesions or hemorrhage. X-ray of the lumbar spine shows no significant, acute pathologies. Degenerative disc disease noted. Urine shows no signs of urinary tract infection but does show mild dehydration. Time was a rather discussed this issue on initial evaluation because the patient is not drinking enough water as she should. Patient is diabetic and she has control over glucose. This is evident in the urine with +4 glucose. Patient advised to follow-up with primary care. Strict return parameters were thoroughly discussed the patient was understanding and agreeable. Case discussed with physician. - Lab Data Lab Results 05/30/19 Range/Units 18:30 Urine Color Yellow Urine Appearance Cloudy H (Clear) Urine pH 5.5 (5.0-8.0) Ur Specific [place] 1.029 (1.001-1.035) Urine Protein Negative (Negative) Urine Glucose (UA) 4+ H (Negative) Urine Ketones Trace H (Negative) Urine Blood Negative (Negative) Urine Nitrite Negative (Negative) Urine Bilirubin Negative (Negative) Urine Urobilinogen 2.0 (<2.0) mg/dL Ur Leukocyte Esterase Moderate H (Negative) Urine RBC 2 (0-5) /hpf Urine WBC 4 (0-5) /hpf Ur Squamous Epith Cells 3 (0-4) /hpf Hyaline Casts 28 H (0-2) /lpf Urine Mucus Rare H (None) /hpf Disposition Clinical Impression: Fall Disposition: HOME SELF-CARE Condition: Stable Instructions (If sedation given, give patient instructions): Fall Prevention (ED) Additional Instructions: Please follow up with primary care. Please return to emergency department if symptoms worsen. Is patient prescribed a controlled substance at d/c from ED?: No Referrals: Tracie Sams MD [Primary Care Provider] - 1-2 days Time of Disposition: 19:25
[2019-05-30 19:32] VITALS: BP 139/75; PULSE 84; TEMP 98
== END 2019-05-30 19:46 | disposition home or self-care (01) ==
LOC: EC 16:41
DX: M79.601 Pain in right arm (principal); M79.602 Pain in left arm; M54.5 Low back pain; E86.0 Dehydration; M51.36 Other intervertebral disc degeneration, lumbar region; F31.30 Bipolar disorder, current episode depressed, mild or moderate severity, unspecified; R45.1 Restlessness and agitation; I95.1 Orthostatic hypotension; E78.5 Hyperlipidemia, unspecified; I10 Essential (primary) hypertension; E03.9 Hypothyroidism, unspecified; E11.51 Type 2 diabetes mellitus with diabetic peripheral angiopathy without gangrene; G25.81 Restless legs syndrome; Z87.891 Personal history of nicotine dependence; Z79.84 Long term (current) use of oral hypoglycemic drugs; Z79.890 Hormone replacement therapy; Z79.899 Other long term (current) drug therapy; W10.9XXA Fall (on) (from) unspecified stairs and steps, initial encounter; Y93.01 Activity, walking, marching and hiking
CPT/HCPCS: 70450; 72100; 72125; 81001; 99284

== ENCOUNTER 2019-12-05 20:44 | Inpatient (IN) | payer MEDICARE ==
[2019-12-05] MEDS ORDERED: SODIUM CHLORIDE 0.9% 1,000 ML IV STA (20:49)
--- NOTE | 2019-12-05 20:49 | ED ---
Neuro HPI - General Stated Complaint: Poss stroke Source: RN notes reviewed, old records reviewed Limitations: no limitations - History of Present Illness Is the patient presenting with stroke symptoms?: Yes -: hour(s) (8) Initial Comments: This is a 69-year-old female to the ER for evaluation patient resents for significant right sided weakness arm leg. Patient poor historian history obtained from fall patient like this in the stay, last time seen well was at 1 PM patient does suffer from diabetes high blood pressure high cholesterol Location: speech, right arm, right leg History of same: No Place: home Severity: moderate Improves With: none Worsens With: none Context: sudden onset Associated Symptoms: denies other symptoms Treatments Prior to Arrival: none - Related Data Home Medications: Home Medications Medication Instructions Recorded Confirmed Divalproex ER [Depakote ER] 750 mg PO HS 01/05/16 12/05/19 Escitalopram [Lexapro] 20 mg PO HS 01/05/16 12/05/19 Aspirin EC [Ecotrin Low Dose] 81 mg PO BID 12/05/19 12/05/19 Atorvastatin Calcium [Lipitor] 40 mg PO HS 12/05/19 12/05/19 Ergocalciferol [Vitamin D2] 50,000 unit PO WE 12/05/19 12/05/19 LORazepam [Ativan] 1 mg PO HS 12/05/19 12/05/19 Levothyroxine Sodium [Synthroid] 75 mcg PO DAILY 12/05/19 12/05/19 Lisinopril 40 mg PO DAILY 12/05/19 12/05/19 Multivitamins, Thera [Multivitamin 1 tab PO DAILY 12/05/19 12/05/19 (formulary)] Omeprazole 20 mg PO DAILY PRN 12/05/19 12/05/19 glipiZIDE XL [Glucotrol Xl] 10 mg PO DAILY 12/05/19 12/05/19 Allergies/Adverse Reactions: Allergies Allergy/AdvReac Type Severity Reaction Status Date / Time No Known Allergies Allergy Verified 12/05/19 22:39 Review of Systems ROS Statement: Those systems with pertinent positive or pertinent negative responses have been documented in the HPI. ROS Other: All systems not noted in ROS Statement are negative. General Exam - General Exam Comments Initial Comments: NIH of 7 with left-sided weakness General appearance: alert, in no apparent distress Head exam: Present: atraumatic, normocephalic, normal inspection Eye exam: Present: normal appearance, PERRL, EOMI. Absent: scleral icterus, conjunctival injection, periorbital swelling ENT exam: Present: normal exam, mucous membranes moist Neck exam: Present: normal inspection. Absent: tenderness, meningismus, lymphadenopathy Respiratory exam: Present: normal lung sounds bilaterally. Absent: respiratory distress, wheezes, rales, rhonchi, stridor Cardiovascular Exam: Present: regular rate, normal rhythm, normal heart sounds. Absent: systolic murmur, diastolic murmur, rubs, gallop, clicks GI/Abdominal exam: Present: soft, normal bowel sounds. Absent: distended, tenderness, guarding, rebound, rigid Extremities exam: Present: normal inspection, full ROM, normal capillary refill. Absent: tenderness, pedal edema, joint swelling, calf tenderness Back exam: Present: normal inspection Neurological exam: Present: alert, oriented X3, CN II-XII intact Psychiatric exam: Present: normal affect, normal mood Skin exam: Present: warm, dry, intact, normal color. Absent: rash Stroke MDM - Lab Data Result diagrams: 12/05/19 21:06 12/05/19 21:06 Lab Results 12/05/19 12/05/19 12/05/19 Range/Units 20:49 21:06 21:06 WBC 10.6 (3.8-10.6) k/uL RBC 4.68 (3.80-5.40) m/uL Hgb 14.9 (11.4-16.0) gm/dL Hct 44.1 (34.0-46.0) % MCV 94.4 (80.0-100.0) fL MCH 31.9 (25.0-35.0) pg MCHC 33.8 (31.0-37.0) g/dL RDW 13.0 (11.5-15.5) % Plt Count 175 (150-450) k/uL Neutrophils % 51 % Lymphocytes % 35 % Monocytes % 10 % Eosinophils % 2 % Basophils % 0 % Neutrophils # 5.4 (1.3-7.7) k/uL Lymphocytes # 3.8 (1.0-4.8) k/uL Monocytes # 1.1 H (0-1.0) k/uL Eosinophils # 0.2 (0-0.7) k/uL Basophils # 0.0 (0-0.2) k/uL PT 11.3 (9.0-12.0) sec INR 1.1 (<1.2) APTT 22.3 (22.0-30.0) sec Sodium (137-145) mmol/L Potassium (3.5-5.1) mmol/L Chloride (98-107) mmol/L Carbon Dioxide (22-30) mmol/L Anion Gap mmol/L BUN (7-17) mg/dL Creatinine (0.52-1.04) mg/dL Est GFR (CKD-EPI)AfAm (>60 ml/min/1.73 sqM) Est GFR (CKD-EPI)NonAf (>60 ml/min/1.73 sqM) Glucose (74-99) mg/dL POC Glucose (mg/dL) 367 H (75-99) mg/dL POC Glu Organ Builder ID Sarahy Guevara Calcium (8.4-10.2) mg/dL Total Bilirubin (0.2-1.3) mg/dL AST (14-36) U/L ALT (4-34) U/L Alkaline Phosphatase (38-126) U/L Ammonia (<30) umol/L Total Creatine Kinase (30-135) U/L CK-MB (CK-2) (0.0-2.4) ng/mL CK-MB (CK-2) Rel Index Troponin I (0.000-0.034) ng/mL Total Protein (6.3-8.2) g/dL Albumin (3.5-5.0) g/dL Valproic Acid ug/mL 12/05/19 12/05/19 12/05/19 Range/Units 21:06 21:06 21:06 WBC (3.8-10.6) k/uL RBC (3.80-5.40) m/uL Hgb (11.4-16.0) gm/dL Hct (34.0-46.0) % MCV (80.0-100.0) fL MCH (25.0-35.0) pg MCHC (31.0-37.0) g/dL RDW (11.5-15.5) % Plt Count (150-450) k/uL Neutrophils % % Lymphocytes % % Monocytes % % Eosinophils % % Basophils % % Neutrophils # (1.3-7.7) k/uL Lymphocytes # (1.0-4.8) k/uL Monocytes # (0-1.0) k/uL Eosinophils # (0-0.7) k/uL Basophils # (0-0.2) k/uL PT (9.0-12.0) sec INR (<1.2) APTT (22.0-30.0) sec Sodium 138 (137-145) mmol/L Potassium 4.2 (3.5-5.1) mmol/L Chloride 99 (98-107) mmol/L Carbon Dioxide 29 (22-30) mmol/L Anion Gap 10 mmol/L BUN 14 (7-17) mg/dL Creatinine 0.59 (0.52-1.04) mg/dL Est GFR (CKD-EPI)AfAm >90 (>60 ml/min/1.73 sqM) Est GFR (CKD-EPI)NonAf >90 (>60 ml/min/1.73 sqM) Glucose 302 H (74-99) mg/dL POC Glucose (mg/dL) (75-99) mg/dL POC Glu Organ Builder ID Calcium 10.2 (8.4-10.2) mg/dL Total Bilirubin 0.5 (0.2-1.3) mg/dL AST 45 H (14-36) U/L ALT 39 H (4-34) U/L Alkaline Phosphatase 89 (38-126) U/L Ammonia <9 (<30) umol/L Total Creatine Kinase 32 (30-135) U/L CK-MB (CK-2) 0.3 (0.0-2.4) ng/mL CK-MB (CK-2) Rel Index 0.9 Troponin I <0.012 (0.000-0.034) ng/mL Total Protein 6.8 (6.3-8.2) g/dL Albumin 4.1 (3.5-5.0) g/dL Valproic Acid 72.5 ug/mL - NIH Stroke Scale 1a. Level of Consciousness: (0) alert 1b. LOC Questions: (0) answers correctly 1c. LOC Commands: (0) performs tasks correctly 5a. Motor Arm Left: (0) no drift 5b. Motor Arm Right: (3) no gravity effort 6a. Motor Leg Left: (0) no drift 6b. Motor Leg Right: (3) no gravity effort 7. Limb Ataxia: (1) present 1 limb 8. Sensory: (0) normal 9. Best Language: (1) mild/moderate aphasia 10. Dysarthria: (0) normal 11. Extinction/Inattention: (0) no abnormality - Thrombolytic Inclusion/Exclusion Thrombolytic Exclusion Criteria: Onset of Symptoms Unknown, Symptom Onset > 4.5 Hours - Medical Decision Making 69 female DF for evaluation patient is with acute CVA, patient having acute CVA findings here in the ER right-sided she does have a history of right-sided 50s are worse normal but improving here in the ER with hydration - Radiology Data Radiology results: report reviewed (CT brain CT had neck shows old stroke no new), image reviewed - EKG Data -: EKG Interpreted by Me (EKG is sinus rhythm of 69 NH 146 QRS 86 QTC 447) Past Medical History Past Medical History: Diabetes Mellitus, Hyperlipidemia, Hypertension, Pneumonia, Thyroid Disorder Additional Past Medical History / Comment(s): NIDDM type II, hypothyroid, PAD, bronchitis, sinus problems, back pain with R sided sciatica, RLS. History of Any Multi-Drug Resistant Organisms: None Reported Past Surgical History: Appendectomy, Breast Surgery, Cholecystectomy, Hernia Repair, Hysterectomy, Tubal Ligation Additional Past Surgical History / Comment(s): Aortobifemoral bypass, ventral hernia repair, colonoscopy with benign polypectomy, bilateral cataract removal with lens implants, benign L breast bx. Past Anesthesia/Blood Transfusion Reactions: No Reported Reaction, Motion Sickness Past Psychological History: Bipolar Smoking Status: Former smoker Past Alcohol Use History: None Reported Past Drug Use History: None Reported - Past Family History Father Family Medical History: Cancer Additional Family Medical History / Comment(s): Father of prostate cancer at the age of 84 yrs. Mother Additional Family Medical History / Comment(s): Mother had heart problems and at the age of 64yrs. Pt states her mother never had a DC. Course Vital Signs 12/05/19 12/05/19 12/05/19 20:54 21:15 21:30 Temperature 98.0 F Pulse Rate 70 67 73 Respiratory 17 24 11 L Rate Blood Pressure 111/78 116/76 128/83 O2 Sat by Pulse 96 94 L 94 L Oximetry 12/05/19 21:50 Temperature Pulse Rate 70 Respiratory 13 Rate Blood Pressure 148/64 O2 Sat by Pulse 95 Oximetry - Reevaluation(s) Reevaluation #1: Code stroke paged on arrival Patient does show mild improvement here in the ER Patient again remained still remains poor historian, no TPA candidate secondary to unknown onset - Consultations Consultation #1: The Dr. Bailey agrees to keep patient displayed no neurological coverage for this weekend Critical Care Time Critical Care Time: Yes Total Critical Care Time: 31 Disposition Clinical Impression: Cerebrovascular accident (CVA) Disposition: ADMITTED IP TO THIS HOSP Condition: Serious Is patient prescribed a controlled substance at d/c from ED?: No
[2019-12-05 21:01] LABS: Glucose,Whole Blood 367 mg/dL (75-99)
--- NOTE | 2019-12-05 21:17 | CT ---
EXAMINATION TYPE: CT brain wo con for TPA DATE OF EXAM: 12/05/2019 COMPARISON: 05/30/2019 HISTORY: Neuro deficits. CT DLP: 1090.4 mGycm Automated exposure control for dose reduction was used. Exam performed with no contrast. There is cerebral cortical atrophy. There is no mass effect nor midline shift. There is no sign of in tracranial hemorrhage. There is some hypodensity in the anterior right internal capsule consistent wi th old lacunar infarct. Unchanged. The calvarium is intact. Temporal bones appear normal. There is hy perostosis frontalis. IMPRESSION: Cerebral atrophy. Old anterior right internal capsule lacunar infarct. No acute intracranial abnormal ity. No change.
[2019-12-05 21:21] LABS: Basophils % (A) 0 %; Eosinophils # (A) 0.2 k/uL (0-0.7); Eosinophils % (A) 2 %; HCT 44.1 % (34.0-46.0); HGB 14.9 gm/dL (11.4-16.0); Lymphocytes # (A) 3.8 k/uL (1.0-4.8); Lymphocytes % (A) 35 %; MCH 31.9 pg (25.0-35.0); MCHC 33.8 g/dL (31.0-37.0); MCV 94.4 fL (80.0-100.0); Mean Platelet Volume 9.4; Monocytes # (A) 1.1 k/uL (0-1.0); Monocytes % (A) 10 %; Neutrophils # (A) 5.4 k/uL (1.3-7.7); Neutrophils % (A) 51 %; Platelet Count 175 k/uL (150-450); RBC 4.68 m/uL (3.80-5.40); WBC 10.6 k/uL (3.8-10.6)
[2019-12-05 21:27] LABS: INR 1.1 (<1.2); Partial Thromboplastin Time 22.3 sec (22.0-30.0); Prothrombin Time 11.3 sec (9.0-12.0)
[2019-12-05 21:28] LABS: ALT 39 U/L (4-34); AST 45 U/L (14-36); African American GFR (CKD) >90 (>60 ml/min/1.73 sqM); Albumin 4.1 g/dL (3.5-5.0); Alkaline Phosphatase 89 U/L (38-126); Anion Gap 10 mmol/L; Blood Urea Nitrogen 14 mg/dL (7-17); Calcium 10.2 mg/dL (8.4-10.2); Carbon Dioxide 29 mmol/L (22-30); Chloride 99 mmol/L (98-107); Glucose 302 mg/dL (74-99); Non-African American GFR(CKD) >90 (>60 ml/min/1.73 sqM); Potassium 4.2 mmol/L (3.5-5.1); Sodium 138 mmol/L (137-145); Total Bilirubin 0.5 mg/dL (0.2-1.3); Total Protein 6.8 g/dL (6.3-8.2)
[2019-12-05 21:33] LABS: Valproic Acid (Depakene) 72.5 ug/mL
--- NOTE | 2019-12-05 21:36 | XR ---
EXAMINATION TYPE: XR chest 2V DATE OF EXAM: 12/05/2019 COMPARISON: 08/11/2008 HISTORY: Altered mental status TECHNIQUE: 2 views FINDINGS: There is no heart failure nor confluent pneumonic infiltrate. Heart size is normal. Costoph renic angles are clear. There are chest leads. There are no hilar masses. There is some spurring in t he thoracic spine. IMPRESSION: No active cardiopulmonary disease. Normal heart. No change.
[2019-12-05 21:50] LABS: Creatine Kinase 32 U/L (30-135)
[2019-12-05 22:02] LABS: Creatine Kinase MB 0.3 ng/mL (0.0-2.4); Troponin I <0.012 ng/mL (0.000-0.034)
[2019-12-05] MEDS ORDERED: ASPIRIN 325 MG TAB PO STA (22:35)
--- NOTE | 2019-12-05 22:35 | CT ---
EXAMINATION TYPE: CT angio head neck DATE OF EXAM: 12/05/2019 COMPARISON: HISTORY: Neuro deficits. CT DLP: 357.5 mGycm Automated exposure control for dose reduction was used. CONTRAST: Performed with IV Contrast, patient injected with 65ml mL of Isovue 370. There are 3-D post processed images. There is normal branching pattern of the great vessels on the aortic arch. There is bilateral arteria l flow in the subclavian arteries. There appears to be severe stenosis of the proximal left subclavia n artery of more than 80% diameter. There is bilateral arterial flow in the common internal and exter nal carotid arteries. There is bilateral arterial flow in the vertebral arteries. There is arterial f low in the vertebrobasilar artery system. Right vertebral artery is larger than the left. There is di minutive basilar artery. There is bilateral plaque formation at the carotid artery bifurcations and a pproximate 50% stenosis of the proximal right and left internal carotid arteries. There is no evidenc e of carotid or vertebral artery aneurysm or dissection. There is arterial flow in the anterior middle and posterior cerebral arteries. There is normal contra st opacification of the venous sinuses. I see no evidence of intracranial aneurysm or neovascularity. There is no mass effect. I see no intracranial hemodynamic stenosis. IMPRESSION: Negative CT angiogram of the brain. There is moderate stenosis of the proximal left subclavian artery that is distal to the origin of the vertebral artery and internal mammary artery. There is close to 50% stenosis of the origins of both internal carotid arteries due to plaque formati on.
[2019-12-05] MEDS: SODIUM CHLORIDE 0.9% 1,000 ML IV SCH (23:00)
[2019-12-06 06:06] LABS: Glucose,Whole Blood 139 mg/dL (75-99)
[2019-12-06] MEDS ORDERED: PANTOPRAZOLE 40 MG TABLET PO PRN (06:38)
[2019-12-06 06:40] LABS: Cholesterol 160 mg/dL (<200); HDL Cholesterol 39 mg/dL (40-60); LDL Cholesterol,Calculated 78 mg/dL (0-99); Triglycerides 216 mg/dL (<150)
[2019-12-06] MEDS: glipiZIDE 5 MG TAB PO SCH ×2 (06:56→17:53)
[2019-12-06] MEDS: ASPIRIN 81 MG PO SCH ×2 (07:59→20:41)
[2019-12-06] MEDS: LISINOPRIL 20 MG TAB PO SCH (07:59)
[2019-12-06] MEDS: MULTIVITAMINS, THERA 1 EACH TAB PO SCH (07:59)
[2019-12-06] MEDS: LEVOTHYROXINE 75 MCG TAB PO SCH (08:00)
--- NOTE | 2019-12-06 10:44 | P.HPIM ---
History of Present Illness H&P Date: 12/06/19 Felipa Lubin, is a 69-year-old female patient of Dr. Sams, who presented to [facility] emergency room with right sided weakness, patient stated that she fell and was unable to stand up, her was away from the house for several hours when he came back he helped her up and called EMS. Patient has a known history of hypertension, hyperlipidemia, lxm-zcoxtsx-ngstcacmt diabetes mellitus and bipolar disorder, she stated that she had mini strokes in the past, she was seen by Dr. Suh for a neurologist. In the emergency room patient was seen and examined by Dr. Florez, on presentation patient was afebrile heart rate 70 respirations 17 blood pressure 111/78 and pulse ox 96% on room air, physical exam was significant for weakness in the right upper extremity and the right lower extremity, laboratory data was significant for elevated glucose level at 302, elevated triglycerides at 216, and slight elevation in liver enzymes AST [address] angiogram of the brain was negative there was moderate stenosis of the proximal left subclavian artery, computed tomography scan of the brain without contrast was done in the emergency room and revealed cerebral atrophy and evidence of 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 Patient was seen and examined on the telemetry floor, she is alert and oriented 3 in no apparent distress at this time she is answering questions appropriately, there is no fever or chills no headache or dizziness no chest pain no shortness of breath no cough no nausea or vomiting no abdominal pain no diarrhea no blood in the stools no burning with urination no frequency or urg ency and no hematuria, and is still complaining of weakness in her right upper extremity and right lower extremity as compared to the left. Past Medical History Past Medical History: Diabetes Mellitus, Hyperlipidemia, Hypertension, Pneumonia, Thyroid Disorder Additional Past Medical History / Comment(s): NIDDM type II, hypothyroid, PAD, bronchitis, sinus problems, back pain with R sided sciatica, RLS. History of Any Multi-Drug Resistant Organisms: None Reported Past Surgical History: Appendectomy, Breast Surgery, Cholecystectomy, Hernia Repair, Hysterectomy, Tubal Ligation Additional Past Surgical History / Comment(s): Aortobifemoral bypass, ventral he rnia repair, colonoscopy with benign polypectomy, bilateral cataract removal with lens implants, benign L breast bx. Past Anesthesia/Blood Transfusion Reactions: No Reported Reaction, Motion Sickness Past Psychological History: Bipolar Additional Psychological History / Comment(s): Pt states she is well managed with her medication for her bipolar disease. She resides with her spouse and is independent. Smoking Status: Former smoker Past Alcohol Use History: None Reported Additional Past Alcohol Use History / Comment(s): Pt started smoking in 1963 and quit in 2008. Past Drug Use History: None Reported - Past Family History Father Family Medical History: Cancer Additional Family Medical History / Comment(s): Father of prostate cancer at the age of 84 yrs. Mother Additional Family Medical History / Comment(s): Mother had heart problems and at the age of 87yrs. Pt states her mother never had a MD. Medications and Allergies Home Medications Medication Instructions Recorded Confirmed Type Divalproex ER [Depakote ER] 750 mg PO HS 01/05/16 12/05/19 History Escitalopram [Lexapro] 20 mg PO HS 01/05/16 12/05/19 History Aspirin EC [Ecotrin Low Dose] 81 mg PO BID 12/05/19 12/05/19 History Atorvastatin Calcium [Lipitor] 40 mg PO HS 12/05/19 12/05/19 History Ergocalciferol [Vitamin D2] 50,000 unit PO WE 12/05/19 12/05/19 History LORazepam [Ativan] 1 mg PO HS 12/05/19 12/05/19 History Levothyroxine Sodium [Synthroid] 75 mcg PO DAILY 12/05/19 12/05/19 History Lisinopril 40 mg PO DAILY 12/05/19 12/05/19 History Multivitamins, Thera [Multivitamin 1 tab PO DAILY 12/05/19 12/05/19 History (formulary)] Omeprazole 20 mg PO DAILY PRN 12/05/19 12/05/19 History glipiZIDE XL [Glucotrol Xl] 10 mg PO DAILY 12/05/19 12/05/19 History Allergies Allergy/AdvReac Type Severity Reaction Status Date / Time No Known Allergies Allergy Verified 12/05/19 22:39 Physical Exam Vitals: Vital Signs Temp Pulse Pulse Resp BP BP Pulse Ox 12/06/19 08:00 98.2 F 61 16 144/66 93 L 12/06/19 04:00 61 12/06/19 03:27 97.8 F 59 L 134/63 97 12/05/19 23:29 98.1 F 70 13 169/70 95 12/05/19 21:50 70 13 148/64 95 12/05/19 21:30 73 11 L 128/83 94 L 12/05/19 21:15 67 24 116/76 94 L 12/05/19 20:54 98.0 F 70 17 111/78 96 Intake and Output 12/05/19 12/06/19 12/06/19 22:59 06:59 14:59 Intake Total 0 Balance 0 Intake: Oral 0 Other: # Voids 2 Weight 66.7 kg 65.9 kg On physical exam patient is alert and oriented 3 in no apparent distress HEENT head normocephalic and atraumatic Neck is supple no JVD no goiter no lymphadenopathy no carotid bruit Chest exam reveals a few scattered rhonchi no wheezing Cardiac exam reveals regular heart sounds S1 and S2 no gallops no murmurs Abdomen is soft nontender no organomegaly with normal bowel sounds Extremity exam reveals no edema no cyanosis or clubbing Neurological examination reveals mental status patient is alert and oriented 3, cranial nerve II-12 are intact, there is no sensory deficit, there is mild motor deficit in the right upper extremity and right lower extremity as compared to the left, weakness is more pronounced on the right upper extremity, reflexes are 2+ symmetrical plantars are downward on the left and equivocal on the right. Results CBC & Chem 7: 12/05/19 21:06 12/05/19 21:06 Labs: Abnormal Lab Results - Last 24 Hours (Table) 12/05/19 12/05/19 12/05/19 Range/Units 20:49 21:06 21:06 Monocytes # 1.1 H (0-1.0) k/uL Glucose 302 H (74-99) mg/dL POC Glucose (mg/dL) 367 H (75-99) mg/dL AST 45 H (14-36) U/L ALT 39 H (4-34) U/L Triglycerides (<150) mg/dL HDL Cholesterol (40-60) mg/dL 12/06/19 12/06/19 Range/Units 05:46 06:05 Monocytes # (0-1.0) k/uL Glucose (74-99) mg/dL POC Glucose (mg/dL) 139 H (75-99) mg/dL AST (14-36) U/L ALT (4-34) U/L Triglycerides 216 H (<150) mg/dL HDL Cholesterol 39 L (40-60) mg/dL Thrombosis Risk Factor Assmnt - Choose All That Apply Each Risk Factor Represents 2 Points: Age 61-74 years Thrombosis Risk Factor Assessment Total Risk Factor Score: 2 Thrombosis Risk Factor Assessment Level: Low Risk Assessment and Plan Plan: 1. Stroke with right sided weakness, symptoms more than 24 hours at this time, Plavix was added to her regimen on presentation, MRI of the brain with contrast was ordered, neurology consultation requested, echocardiogram and carotid Dopplers ordered, patient is on telemetry to rule out any evidence of paroxysmal atrial fibrillation. EKG on admission normal sinus rhythm. 2. Underlying history of hyperlipidemia maintained on Lipitor 40 mg by mouth daily, there is minimal elevation in liver enzymes will monitor closely 3. Underlying history of [id number]-drqfcvhzd diabetes mellitus, glucose on admission 302, patient is maintained on glipizide will continue at this time, will check hemoglobin A1c and adjust medications as needed, at this time will add insulin to sliding scale. 4. Underlying history of hypothyroidism maintained on Synthroid 75 g daily continue, will check TSH 5. Underlying history of hypertension maintained on lisinopril 40 mg by mouth daily continue 6. Underlying history of bipolar disorder maintained on Lexapro and Depakote will continue, patient is stable at this time 7. For DVT prophylaxis Lovenox 40 mg daily SQ, for GI prophylaxis patient on Protonix
[2019-12-06] MEDS: SODIUM CHLORIDE 0.9% 1,000 ML IV SCH ×2 (11:24→20:41)
[2019-12-06] MEDS: ENOXAPARIN 40 MG/0.4 ML SYRINGE SQ SCH (11:25)
[2019-12-06 11:26] LABS: Glucose,Whole Blood 169 mg/dL (75-99)
[2019-12-06 16:42] LABS: Glucose,Whole Blood 276 mg/dL (75-99)
[2019-12-06] MEDS: INSULIN ASPART (NovoLOG) 100 UNIT/ML VIAL SQ SCH ×2 (18:00→20:47)
[2019-12-06 19:56] LABS: Glucose,Whole Blood 309 mg/dL (75-99)
[2019-12-06] MEDS: ESCITALOPRAM 20 MG TAB PO SCH (20:41)
[2019-12-06] MEDS: LORazepam 1 MG TAB PO SCH (20:41)
[2019-12-06] MEDS: ATORVASTATIN 40 MG TAB PO SCH (20:41)
[2019-12-06] MEDS: DIVALPROEX ER 250 MG TAB.ER.24H PO SCH (21:22)
[2019-12-06] MEDS: CLOPIDOGREL 75 MG TAB PO SCH (22:04)
[2019-12-06] MEDS ORDERED: ASPIRIN 325 MG TAB PO SCH (22:36)
[2019-12-07 06:15] LABS: Glucose,Whole Blood 225 mg/dL (75-99)
[2019-12-07] MEDS: LEVOTHYROXINE 75 MCG TAB PO SCH (06:43)
[2019-12-07] MEDS: glipiZIDE 5 MG TAB PO SCH ×2 (06:43→17:30)
[2019-12-07] MEDS: SODIUM CHLORIDE 0.9% 1,000 ML IV SCH ×2 (06:45→17:30)
[2019-12-07 06:50] LABS: Basophils % (A) 0 %; Eosinophils # (A) 0.3 k/uL (0-0.7); Eosinophils % (A) 4 %; HCT 39.1 % (34.0-46.0); HGB 12.5 gm/dL (11.4-16.0); Lymphocytes # (A) 3.4 k/uL (1.0-4.8); Lymphocytes % (A) 47 %; MCH 29.7 pg (25.0-35.0); MCHC 31.9 g/dL (31.0-37.0); MCV 92.9 fL (80.0-100.0); Mean Platelet Volume 9.2; Monocytes # (A) 0.6 k/uL (0-1.0); Monocytes % (A) 8 %; Neutrophils # (A) 2.7 k/uL (1.3-7.7); Neutrophils % (A) 38 %; Platelet Count 142 k/uL (150-450); WBC 7.2 k/uL (3.8-10.6)
[2019-12-07] MEDS: INSULIN ASPART (NovoLOG) 100 UNIT/ML VIAL SQ SCH ×4 (06:54→20:34)
[2019-12-07 07:00] LABS: ALT 30 U/L (4-34); AST 47 U/L (14-36); African American GFR (CKD) >90 (>60 ml/min/1.73 sqM); Albumin 3.3 g/dL (3.5-5.0); Alkaline Phosphatase 66 U/L (38-126); Anion Gap 6 mmol/L; Blood Urea Nitrogen 7 mg/dL (7-17); Carbon Dioxide 28 mmol/L (22-30); Chloride 104 mmol/L (98-107); Glucose 193 mg/dL (74-99); Non-African American GFR(CKD) >90 (>60 ml/min/1.73 sqM); Potassium 3.8 mmol/L (3.5-5.1); Sodium 138 mmol/L (137-145); Total Bilirubin 0.5 mg/dL (0.2-1.3); Total Protein 5.8 g/dL (6.3-8.2)
[2019-12-07] MEDS: ENOXAPARIN 40 MG/0.4 ML SYRINGE SQ SCH (08:50)
[2019-12-07] MEDS: MULTIVITAMINS, THERA 1 EACH TAB PO SCH (08:51)
[2019-12-07] MEDS: LISINOPRIL 20 MG TAB PO SCH (08:51)
[2019-12-07] MEDS: ASPIRIN 81 MG PO SCH ×2 (08:51→20:28)
[2019-12-07] MEDS: CLOPIDOGREL 75 MG TAB PO SCH (08:51)
--- NOTE | 2019-12-07 11:00 | ECHOF ---
Referral Reason:Thrombus MEASUREMENTS -------- HEIGHT: 152.4 cm WEIGHT: 66.2 kg BP: 167/74 IVSd: 1.4 cm (0.6 - 1.1) LVIDd: 4.1 cm (3.9 - 5.3) LVPWd: 1.3 cm (0.6 - 1.1) IVSs: 1.3 cm LVIDs: 2.9 cm LVPWs: 2.0 cm LAESV Index (A-L): 15.54 ml/m Ao Diam: 3.5 cm (2.0 - 3.7) AV Cusp: 2.0 cm (1.5 - 2.6) MV E Vinnie: 1.17 m/s MV DecT: 275 ms MV A Vinnie: 1.66 m/s MV E/A Ratio: 0.70 RAP: 5.00 mmHg RVSP: 48.36 mmHg FINDINGS -------- Sinus rhythm. This was a technically adequate study. The left ventricular size is normal. There is mild concentric left ventricular hypertrophy. Overa ll left ventricular systolic function is normal with, an EF between 55 - 60 %. The diastolic fillin g pattern is normal for the age of the patient 15.45. The right ventricle is normal in size. Normal LA size by volume 22+/-6 ml/m2. The right atrial size is normal. Interatrial and interventricular septum intact. There is mild aortic valve sclerosis. There is no evidence of aortic regurgitation. There is no e vidence of aortic stenosis. Mild mitral annular calcification present. Mild mitral regurgitation is present. Ozet-tb-wrqxegad tricuspid regurgitation present. There is mild to moderate pulmonary hypertension. The right ventricular systolic pressure, as measured by Doppler, is 48.36mmHg. There is no pulmonic regurgitation present. The aortic root size is normal. The inferior vena cava is mildly dilated. There is no pericardial effusion. CONCLUSIONS -------- 1. There is mild concentric left ventricular hypertrophy. 2. Overall left ventricular systolic function is normal with, an EF between 55 - 60 %. 3. The diastolic filling pattern is normal for the age of the patient 15.45 4. Normal LA size by volume 22+/-6 ml/m2. 5. There is mild aortic valve sclerosis. 6. Mild mitral annular calcification present. 7. Mild mitral regurgitation is present. 8. Wxmn-sn-axsdkixk tricuspid regurgitation present. 9. There is mild to moderate pulmonary hypertension. PHYS ASST: Nalini Johnson RDCS
--- NOTE | 2019-12-07 11:19 | P.CONS ---
History of Present Illness - Chief Complaint Gait disturbance, right hemiparesthesias - History of Present Illness I had the opportunity to see patient for inpatient rehab consultation with regard to gait disturbance, right hemiplegia. Patient admitted to [facility] December 04 with acute onset right hemiparesthesias. Patient recalls a fall reports that her right arm hurts. He seemed confused about admission reason. Seen by neurology, Dr. Jewell, concurs with diagnosis of stroke. Head CT demonstrates atrophy and old right internal capsule lacunar infarct. Chest x-ray negative. Angiogram CT with moderate stenosis left subclavian near the vertebral origin. Speech therapy evaluated in rehab reports cognition at baseline and moderate dysarthria. PT and OT prescribed. Previous functional history as elicited patient: 69-year-old right-handed white female who is lives in a first-floor of 2 floor home with . does the cooking, laundry and driving for both retired. Patient can help with laundry as well as does a sit down sponge bath and use his quad cane for gait. PMD Dr. Sams. Denies tobacco or alcohol. Family medical history father with DE. Review of Systems Review of systems: ENT: Denies sneezes or discharge. Eyes: Denies discharge or photophobia. Cardiac: Denies chest pain or palpitation. Pulmonary: Denies cough or shortness of breath. Breast: Denies discharge or lumps. Gastrointestinal: Denies nausea, emesis, constipation, diarrhea. Genitourinary: Denies discharge or frequency. Musculoskeletal: Complains of discomfort right arm or shoulder. Neurologic: Weakness right arm and both legs. Endocrine: Denies shakes or sweats. Oncology: Denies cancers. Dermatologic: Denies rash, itching, pruritus. ALLERGY/immunology: Denies sneezes, rashes. Past Medical History Past Medical History: Diabetes Mellitus, Hyperlipidemia, Hypertension, Pneumonia, Thyroid Disorder Additional Past Medical History / Comment(s): NIDDM type II, hypothyroid, PAD, bronchitis, sinus problems, back pain with R sided sciatica, RLS. History of Any Multi-Drug Resistant Organisms: None Reported Past Surgical History: Appendectomy, Breast Surgery, Cholecystectomy, Hernia Repair, Hysterectomy, Tubal Ligation Additional Past Surgical History / Comment(s): Aortobifemoral bypass, ventral hernia repair, colonoscopy with benign polypectomy, bilateral cataract removal with lens implants, benign L breast bx. Past Anesthesia/Blood Transfusion Reactions: No Reported Reaction, Motion Sickness Past Psychological History: Bipolar Smoking Status: Former smoker Past Alcohol Use History: None Reported Past Drug Use History: None Reported - Past Family History Father Family Medical History: Cancer Additional Family Medical History / Comment(s): Father of prostate cancer at the age of 84 yrs. Mother Additional Family Medical History / Comment(s): Mother had heart problems and at the age of 64yrs. Pt states her mother never had a DE. Medications and Allergies Home Medications Medication Instructions Recorded Confirmed Type Divalproex ER [Depakote ER] 750 mg PO HS 01/05/16 12/05/19 History Escitalopram [Lexapro] 20 mg PO HS 01/05/16 12/05/19 History Aspirin EC [Ecotrin Low Dose] 81 mg PO BID 12/05/19 12/05/19 History Atorvastatin Calcium [Lipitor] 40 mg PO HS 12/05/19 12/05/19 History Ergocalciferol [Vitamin D2] 50,000 unit PO WE 12/05/19 12/05/19 History LORazepam [Ativan] 1 mg PO HS 12/05/19 12/05/19 History Levothyroxine Sodium [Synthroid] 75 mcg PO DAILY 12/05/19 12/05/19 History Lisinopril 40 mg PO DAILY 12/05/19 12/05/19 History Multivitamins, Thera [Multivitamin 1 tab PO DAILY 12/05/19 12/05/19 History (formulary)] Omeprazole 20 mg PO DAILY PRN 12/05/19 12/05/19 History glipiZIDE XL [Glucotrol Xl] 10 mg PO DAILY 12/05/19 12/05/19 History Allergies Allergy/AdvReac Type Severity Reaction Status Date / Time No Known Allergies Allergy Verified 12/05/19 22:39 Physical Exam Vitals: Vital Signs Temp Pulse Resp BP Pulse Ox 12/07/19 08:00 97.4 F L 65 18 166/68 90 L 12/07/19 04:00 98.2 F 57 L 16 167/74 92 L 12/07/19 00:00 98.2 F 65 18 166/72 94 L 12/06/19 20:00 98.1 F 60 18 181/79 92 L 12/06/19 16:00 97.4 F L 62 16 146/65 94 L 12/06/19 11:30 98.1 F 58 L 18 155/72 95 Intake and Output 12/06/19 12/07/19 12/07/19 22:59 06:59 14:59 Other: Voiding Method Bedpan Bedpan Bedpan Diaper Diaper Diaper # Voids 2 2 # Bowel Movements 1 Weight 66.6 kg Skin: Atrophic, intact. General: Medium build and comfortable appearance. Head: Normocephalic, atraumatic. Eyes: Symmetric. Pupils equal round. Ears: Symmetric. Hearing within normal limits. Mouth: Clear. Neck: Supple. Carotid without bruit. Cardiac: Regular rate and rhythm. Lungs: Clear anteriorly and posteriorly. Abdomen: Soft active nontender. Extremities: Normal tone. Neurological: Mental status: Alert, cooperative, pleasant. Cranial nerves: Symmetric facial tone and trapezius. Motor: Active movement left arm but poor movement legs and no movement right arm. Sensation: Intact left arm. DTRs: Symmetric and equal throughout. Mobility: Requires physical assistance for any mobility. Results CBC & Chem 7: 12/07/19 05:52 12/07/19 05:52 Labs: Abnormal Lab Results - Last 24 Hours (Table) 12/06/19 12/06/19 12/06/19 Range/Units 11:24 16:40 19:55 Plt Count (150-450) k/uL Creatinine (0.52-1.04) mg/dL Glucose (74-99) mg/dL POC Glucose (mg/dL) 169 H 276 H 309 H (75-99) mg/dL AST (14-36) U/L Total Protein (6.3-8.2) g/dL Albumin (3.5-5.0) g/dL 12/07/19 12/07/19 12/07/19 Range/Units 05:52 05:52 06:11 Plt Count 142 L (150-450) k/uL Creatinine 0.39 L (0.52-1.04) mg/dL Glucose 193 H (74-99) mg/dL POC Glucose (mg/dL) 225 H (75-99) mg/dL AST 47 H (14-36) U/L Total Protein 5.8 L (6.3-8.2) g/dL Albumin 3.3 L (3.5-5.0) g/dL Assessment and Plan (1) Cerebrovascular accident (CVA) Current Visit: Yes Status: Acute Code(s): I63.9 - CEREBRAL INFARCTION, UNSPECIFIED SNOMED Code(s): 014529837 Plan: Impression: 1. Gait disturbance due to stroke result in right hemiplegia with additional weakness left leg as well. 2. Complaints of discomfort and right arm. 3. Diabetes. 4. Hypertension. 5. Dyslipidemia. 6. Hypothyroid. Comments and plan: At this time PT and OT prescribed and speech therapies already ongoing. Safety concerns noted but at this time would anticipate a need for slower paced program.
[2019-12-07 11:34] LABS: Glucose,Whole Blood 264 mg/dL (75-99)
[2019-12-07 11:39] LABS: Hemoglobin A1C 11.2 % (4.0-6.0)
[2019-12-07 13:59] VITALS: BMI 28.6
[2019-12-07 16:30] LABS: Glucose,Whole Blood 270 mg/dL (75-99)
--- NOTE | 2019-12-07 16:39 | MR ---
EXAMINATION TYPE: MR brain wo/w con DATE OF EXAM: 12/07/2019 COMPARISON: 12/05/2019 CT brain HISTORY: Stroke, Weakness in Right Side CONTRAST: Performed utilizing 6.5 mL intravenous Gadavist gadolinium contrast. TECHNIQUE: Multiplanar, multiecho imaging on a 3.0 Elisa magnet is performed through the brain. Stud y is performed within 24 hours of arrival to the hospital. The craniovertebral junction is normal. The pituitary is normal. Diffusion-weighted imaging is performed. Hyperintensity is present within the left brain stem. Serie s 305 image 64. Periventricular white matter hyperintensity is present, likely on the basis of chronic white matter i schemic changes. Some hyperintensities within the basal ganglion. There is diminished signal within t he basal ganglia which can be related to iron deposition. Ventricles and sulci are prominent for the patient age. No suspicious enhancement is evident. IMPRESSIONS: 1. Acute ischemic changes left brain stem. 2. Chronic white matter ischemic type changes and age-related atrophy. A [place] critical message alert has been initiated for Katie Bailey MD via the [employer] on 12/07/2019 4:37 PM. This message alert has been sent to Katie Bailey MD via the preferences provided by the clinician for the receipt of Radiology Critical Findings. Message ID [id number].
--- NOTE | 2019-12-07 17:29 | P.PN ---
Subjective Progress Note Date: 12/07/19 Felipa Lubin, is a 69-year-old female patient of Dr. Sams, who presented to [facility] emergency room with right sided weakness, patient stated that she fell and was unable to stand up, her was away from the house for several hours when he came back he helped her up and called EMS. Patient has a known history of hypertension, hyperlipidemia, ocg-bsmosyk-ptcgvcdbw diabetes mellitus and bipolar disorder, she stated that she had mini strokes in the past, she was seen by Dr. Suh for a neurologist. In the emergency room patient was seen and examined by Dr. Florez, on pre sentation patient was afebrile heart rate 70 respirations 17 blood pressure 111/78 and pulse ox 96% on room air, physical exam was significant for weakness in the right upper extremity and the right lower extremity, laboratory data was significant for elevated glucose level at 302, elevated triglycerides at 216, and slight elevation in liver enzymes AST [address] angiogram of the brain was negative there was moderate stenosis of the proximal left subclavian artery, computed tomography scan of the brain without contrast was done in the emergency room and revealed cerebral atrophy and evidence of 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 Patient was seen and examined on the telemetry floor, she is alert and oriented 3 in no apparent distress at this time she is answering questions appropriately, there is no fever or chills no headache or dizziness no chest pain no shortness of breath no cough no nausea or vomiting no abdominal pain no diarrhea no blood in the stools no burning with urination no frequency or urgency and no hematuria, and is still complaining of weakness in her right upper extremity and right lower extremity as compared to the left. On 12/07/2019 patient was seen and examined on the medical floor she is alert and oriented 3 in no apparent distress there is no fever or chills no headache or dizziness no chest pain no shortness of breath no cough no nausea or vomiting no abdominal pain no diarrhea no burning with urination no frequency or urgency and no hematuria she is still complaining of right sided weakness involving the upper and lower extremities agent is scheduled for MRI today Objective - Vital Signs Vital signs: Vital Signs Temp 97.8 F 12/07/19 12:00 Pulse 62 12/07/19 12:00 Resp 18 12/07/19 12:00 BP 151/70 12/07/19 12:00 Pulse Ox 95 12/07/19 12:00 Intake & Output 12/06/19 12/07/19 12/07/19 18:59 06:59 18:59 Intake Total 120 Balance 120 Weight 66.6 kg 66.6 kg Intake: Oral 120 Other: Voiding Method Bedpan Bedpan Diaper Diaper # Voids 1 2 3 # Bowel Movements 1 1 - Exam On physical exam patient is alert and oriented 3 in no apparent distress HEENT head normocephalic and atraumatic Neck is supple no JVD no goiter no lymphadenopathy no carotid bruit Chest exam reveals a few scattered rhonchi no wheezing Cardiac exam reveals regular heart sounds S1 and S2 no gallops no murmurs Abdomen is soft nontender no organomegaly with normal bowel sounds Extremity exam reveals no edema no cyanosis or clubbing Neurological examination reveals mental status patient is alert and oriented 3, cranial nerve II-12 are intact, there is no sensory deficit, there is mild motor deficit in the right upper extremity and right lower extremity as compared to the left, weakness is more pronounced on the right upper extremity, reflexes are 2+ symmetrical plantars are downward on the left and equivocal on the right. - Labs CBC & Chem 7: 12/07/19 05:52 12/07/19 05:52 Labs: Abnormal Lab Results - Last 24 Hours (Table) 12/05/19 12/06/19 12/06/19 Range/Units 21:06 16:40 19:55 Plt Count (150-450) k/uL Creatinine (0.52-1.04) mg/dL Glucose (74-99) mg/dL POC Glucose (mg/dL) 276 H 309 H (75-99) mg/dL Hemoglobin A1c 11.2 H (4.0-6.0) % AST (14-36) U/L Total Protein (6.3-8.2) g/dL Albumin (3.5-5.0) g/dL 12/07/19 12/07/19 12/07/19 Range/Units 05:52 05:52 06:11 Plt Count 142 L (150-450) k/uL Creatinine 0.39 L (0.52-1.04) mg/dL Glucose 193 H (74-99) mg/dL POC Glucose (mg/dL) 225 H (75-99) mg/dL Hemoglobin A1c (4.0-6.0) % AST 47 H (14-36) U/L Total Protein 5.8 L (6.3-8.2) g/dL Albumin 3.3 L (3.5-5.0) g/dL 12/07/19 Range/Units 11:29 Plt Count (150-450) k/uL Creatinine (0.52-1.04) mg/dL Glucose (74-99) mg/dL POC Glucose (mg/dL) 264 H (75-99) mg/dL Hemoglobin A1c (4.0-6.0) % AST (14-36) U/L Total Protein (6.3-8.2) g/dL Albumin (3.5-5.0) g/dL Assessment and Plan Plan: 1. Stroke with right sided weakness, symptoms more than 24 hours at this time, Plavix was added to her regimen on presentation, MRI of the brain with contrast was ordered, neurology consultation requested, echocardiogram and carotid Dopplers ordered, patient is on telemetry to rule out any evidence of paroxysmal atrial fibrillation. EKG on admission normal sinus rhythm. 2. Underlying history of hyperlipidemia maintained on Lipitor 40 mg by mouth daily, there is minimal elevation in liver enzymes will monitor closely 3. Underlying history of wkx-uxpwoqe-islbcdizt diabetes mellitus, glucose on admission 302, patient is maintained on glipizide will continue at this time, will check hemoglobin A1c and adjust medications as needed, at this time will add insulin to sliding scale. 4. Underlying history of hypothyroidism maintained on Synthroid 75 g daily continue, will check TSH 5. Underlying history of hypertension maintained on lisinopril 40 mg by mouth daily continue 6. Underlying history of bipolar disorder maintained on Lexapro and Depakote will continue, patient is stable at this time 7. For DVT prophylaxis Lovenox 40 mg daily SQ, for GI prophylaxis patient on Protonix
--- NOTE | 2019-12-07 19:01 | P.CNNES ---
History of Present Illness Consult date: 12/07/19 Requesting physician: Aristeo Florez Reason for Consult: Stroke: Right sided weakness History of Present Illness: This is a 69-year-old female with medical history of transient ischemic attack, hypertension, hyperlipidemia, omx-ueyatqy-aythxqyra diabetes mellitus and [place] palsy on the right side that she suffered 9 years ago and only had 9% resolution that presented to [facility] for right upper and lower extremity weakness. Per the patient on 12/04/2019, around 4 PM in the afternoon she had right upper and lower extremity weakness then she fell then that she noticed slurring of the speech which was more noticeable by her . The called EMS and she was brought to the hospital. Prior to this the patient was doing well. In the ED she had NIH of 8. The points that she received were 3 for motor arm on the right, 3 for motor leg on the right, 1 for language and 1 for limb ataxia. she had CT of the head on 12/05/2019 which was reported as cerebral atrophy and old right internal capsule lacunar infarct. She also had CTA of the head and neck which was reported as moderate stenosis of the proximal left subclavian artery that is distal to the origin of the vertebral artery and the internal mammary artery. Close to 50% stenosis of the origin of both internal carotid artery due to plaque formation. She did not receive TPA since the since of symptoms was unknown and was presumed symptoms of onset was more than 4.5 hours. Regarding patient history of TIA, she was following up with neurologist (Dr. Suh). Patient takes aspirin 81 mg and Lipitor 40 mg at home. She does take Depakote and she states is for her for her mood disorder and she's been taking it for years. Review of Systems Review of system: The 12 point system was reviewed and apparent positive and negative per HPI. Past Medical History Past Medical History: Diabetes Mellitus, Hyperlipidemia, Hypertension, Pneumonia, Thyroid Disorder Additional Past Medical History / Comment(s): NIDDM type II, hypothyroid, PAD, bronchitis, sinus problems, back pain with R sided sciatica, RLS. History of Any Multi-Drug Resistant Organisms: None Reported Past Surgical History: Appendectomy, Breast Surgery, Cholecystectomy, Hernia Re pair, Hysterectomy, Tubal Ligation Additional Past Surgical History / Comment(s): Aortobifemoral bypass, ventral hernia repair, colonoscopy with benign polypectomy, bilateral cataract removal with lens implants, benign L breast bx. Past Anesthesia/Blood Transfusion Reactions: No Reported Reaction, Motion Sickness Past Psychological History: Bipolar Smoking Status: Former smoker Past Alcohol Use History: None Reported Past Drug Use History: None Reported - Past Family History Father Family Medical History: Cancer Additional Family Medical History / Comment(s): Father of prostate cancer at the age of 84 yrs. Mother Additional Family Medical History / Comment(s): Mother had heart problems and at the age of 64yrs. Pt states her mother never had a OH. Medications and Allergies Home Medications Medication Instructions Recorded Confirmed Type Divalproex ER [Depakote ER] 750 mg PO HS 01/05/16 12/05/19 History Escitalopram [Lexapro] 20 mg PO HS 01/05/16 12/05/19 History Aspirin EC [Ecotrin Low Dose] 81 mg PO BID 12/05/19 12/05/19 History Atorvastatin Calcium [Lipitor] 40 mg PO HS 12/05/19 12/05/19 History Ergocalciferol [Vitamin D2] 50,000 unit PO WE 12/05/19 12/05/19 History LORazepam [Ativan] 1 mg PO HS 12/05/19 12/05/19 History Levothyroxine Sodium [Synthroid] 75 mcg PO DAILY 12/05/19 12/05/19 History Lisinopril 40 mg PO DAILY 12/05/19 12/05/19 History Multivitamins, Thera [Multivitamin 1 tab PO DAILY 12/05/19 12/05/19 History (formulary)] Omeprazole 20 mg PO DAILY PRN 12/05/19 12/05/19 History glipiZIDE XL [Glucotrol Xl] 10 mg PO DAILY 12/05/19 12/05/19 History Allergies Allergy/AdvReac Type Severity Reaction Status Date / Time No Known Allergies Allergy Verified 12/05/19 22:39 Physical Examination - Vital Signs Vital Signs: Vital Signs Temp Pulse Resp BP Pulse Ox 12/07/19 04:00 98.2 F 57 L 16 167/74 92 L 12/07/19 00:00 98.2 F 65 18 166/72 94 L 12/06/19 20:00 98.1 F 60 18 181/79 92 L 07/12/20 16:00 97.4 F L 62 16 146/65 94 L 12/06/19 11:30 98.1 F 58 L 18 155/72 95 Intake and Output 12/06/19 12/07/19 12/07/19 22:59 06:59 14:59 Other: Voiding Method Bedpan Bedpan Diaper Diaper # Voids 2 2 # Bowel Movements 1 Weight 66.6 kg - Additional findings GENERAL: The patient is lying in bed and is not in acute distress. CHEST: The heart rate is regular rate rhythm. No murmurs to auscultation. No carotid bruit bilaterally. LUNG: Clear to auscultation bilaterally no wheezing noted throughout. Not labored breathing. ABDOMEN/GI: Bowel sounds present in all 4 quadrants. No tenderness to palpation throughout. NEUROLOGICAL: Higher mental function: The patient is awake, alert, oriented to self, place and time. Patient is following commands. No aphasia and no neglect. Cranial nerves: The pupils are round, equal and reactive to light and accommodation. Visual boucher are full to confrontation throughout. Extraocular movement is intact no nystagmus is noted. Facial sensation is normal to touch throughout. The facial strength is right upper and lower extremity weakness ([place] palsy 8 years ago). Hearing is normal bilaterally to hand rub. Tongue is midline and moved [id number] without any difficulty. Mild dysarthria is noted. Motor: The strength is 0/5 in entire right upper extremity while lower extremity is also 0-1/5 and intermittent dorsiflexion and plantar flexion of right foot. Left upper extremity 5/5 and left lower extremity is 4+/5. Sensation: Sensation is normal to touch throughout. Reflexes (right/left): Biceps 2+/2+; triceps 2+/2+---; brachioradialis; patellar 3+/3+; ankles 1+/1+. Plantars are upgoing bilaterally. NIH Stroke Scale Score: Level of consciousness:0 LOC questions:0 LOC commands:0 Best gaze:0 Visual boucher :0 Facial palsy: 2 (old) Left motor arm:0 Right motor arm:4 Left motor le Right motor le Limb ataxia:0 Sensory:0 Best language:0 Dysarthria:1 Extinction and inattention:0 Total NIHSS score: 10 (but 2 facial is old. therefore new is 8) Results - Laboratory Findings CBC and BMP: 12/07/19 05:52 12/07/19 05:52 Abnormal Lab Findings: Abnormal Labs 12/05/19 12/05/19 12/05/19 20:49 21:06 21:06 Plt Count Monocytes # 1.1 H Creatinine Glucose 302 H POC Glucose (mg/dL) 367 H AST 45 H ALT 39 H Total Protein Albumin Triglycerides HDL Cholesterol 12/06/19 12/06/19 12/06/19 05:46 06:05 11:24 Plt Count Monocytes # Creatinine Glucose POC Glucose (mg/dL) 139 H 169 H AST ALT Total Protein Albumin Triglycerides 216 H HDL Cholesterol 39 L 12/06/19 12/06/19 12/07/19 16:40 19:55 05:52 Plt Count 142 L Monocytes # Creatinine Glucose POC Glucose (mg/dL) 276 H 309 H AST ALT Total Protein Albumin Triglycerides HDL Cholesterol 12/07/19 12/07/19 05:52 06:11 Plt Count Monocytes # Creatinine 0.39 L Glucose 193 H POC Glucose (mg/dL) 225 H AST 47 H ALT Total Protein 5.8 L Albumin 3.3 L Triglycerides HDL Cholesterol - Diagnostic Findings Additional findings: AST is 47 ALT is 30 lipid profile: LDL 78, triglycerides is 216 and the cholesterol is 160. valproic acid is 72.5. The PT is 11.3. PTT is 27.3. INR is 1.1 EKG on 12/05/2019 shows normal sinus rhythm, and a ventricular rate was 69. hemoglobin A1c is 10.2 MR the brain showed acute left brain stem stroke was seen in in the left. [place] area. Transthoracic echocardiogram shows: Ejection fraction of 55-60%. Left atrium size is normal. There is mild to moderate tricuspid regurgitation present. Assessment and Plan Assessment: This is a 69-year-old woman with a history of right facial palsy, hypertension, TIA, hyperlipidemia, tas-nyokdkn-lggetzufz diabetes mellitus who who had right upper and lower extremity weakness and slurred speech. Her NIH was an 8. 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 She did not receive TPA since the since of symptoms was unknown and was presumed symptoms of onset was more than 4.5 hours. Plan: Stroke work-up include: MRI the brain:Acute Left brainstem stroke and is in pontine area. CTA of the head and neck:-moderate stenosis of the proximal left subclavian artery that is distal to the origin of the vertebral artery and the internal mammary artery. Close to 50% stenosis of the origin of both internal carotid artery due to plaque formation Continue Aspirin 81 mg and Plavix 75mg. Continue Lipitor 40mg. target LDL less than 70. Transthoracic echocardiogram shows: Ejection fraction of 55-60%. Left atrium size is normal. There is mild to moderate tricuspid regurgitation present. HbA1c: 10.2 Lipid profile LDL 78,, cholestrol 160, triglyceride 216. PT OT and [employer] are consulted. Telemetry monitoring. Regarding the patient's history of diabetes and HbA1C 10.2, recommend controlling it to <6.5. We will defer management to the primary team. Patient has a history of mood disorder according to her and that she is on Depakote. For DVT prophylaxis on Enoxaparin. We'll continue to follow. Time with Patient: Greater than 30
[2019-12-07 20:12] LABS: Glucose,Whole Blood 262 mg/dL (75-99)
[2019-12-07] MEDS: LORazepam 1 MG TAB PO SCH (20:28)
[2019-12-07] MEDS: ESCITALOPRAM 20 MG TAB PO SCH (20:28)
[2019-12-07] MEDS: ATORVASTATIN 40 MG TAB PO SCH (20:28)
[2019-12-07] MEDS: DIVALPROEX ER 250 MG TAB.ER.24H PO SCH (20:29)
[2019-12-08] MEDS: SODIUM CHLORIDE 0.9% 1,000 ML IV SCH ×3 (02:44→19:57)
[2019-12-08] MEDS: glipiZIDE 5 MG TAB PO SCH ×2 (06:22→17:43)
[2019-12-08] MEDS: LEVOTHYROXINE 75 MCG TAB PO SCH (06:22)
[2019-12-08] MEDS: INSULIN ASPART (NovoLOG) 100 UNIT/ML VIAL SQ SCH ×4 (06:25→21:15)
[2019-12-08 06:28] LABS: Glucose,Whole Blood 182 mg/dL (75-99)
[2019-12-08] MEDS ORDERED: ACETAMINOPHEN TAB 325 MG TAB PO PRN (07:54)
[2019-12-08] MEDS: ENOXAPARIN 40 MG/0.4 ML SYRINGE SQ SCH (10:10)
[2019-12-08] MEDS: CLOPIDOGREL 75 MG TAB PO SCH (10:10)
[2019-12-08] MEDS: MULTIVITAMINS, THERA 1 EACH TAB PO SCH (10:10)
[2019-12-08] MEDS: LISINOPRIL 20 MG TAB PO SCH (10:10)
[2019-12-08] MEDS: ASPIRIN 81 MG PO SCH ×2 (10:10→19:59)
[2019-12-08 11:52] LABS: Glucose,Whole Blood 233 mg/dL (75-99)
--- NOTE | 2019-12-08 12:20 | P.PN ---
Subjective Progress Note Date: 12/08/19 Felipa Lubin, is a 69-year-old female patient of Dr. Sams, who presented to [facility] emergency room with right sided weakness, patient stated that she fell and was unable to stand up, her was away from the house for several hours when he came back he helped her up and called EMS. Patient has a known history of hypertension, hyperlipidemia, nav-ftulbre-oqzomqloi diabetes mellitus and bipolar disorder, she stated that she had mini strokes in the past, she was seen by Dr. Suh for a neurologist. In the emergency room patient was seen and examined by Dr. Florez, on pre sentation patient was afebrile heart rate 70 respirations 17 blood pressure 111/78 and pulse ox 96% on room air, physical exam was significant for weakness in the right upper extremity and the right lower extremity, laboratory data was significant for elevated glucose level at 302, elevated triglycerides at 216, and slight elevation in liver enzymes AST [address] angiogram of the brain was negative there was moderate stenosis of the proximal left subclavian artery, computed tomography scan of the brain without contrast was done in the emergency room and revealed cerebral atrophy and evidence of 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 Patient was seen and examined on the telemetry floor, she is alert and oriented 3 in no apparent distress at this time she is answering questions appropriately, there is no fever or chills no headache or dizziness no chest pain no shortness of breath no cough no nausea or vomiting no abdominal pain no diarrhea no blood in the stools no burning with urination no frequency or urgency and no hematuria, and is still complaining of weakness in her right upper extremity and right lower extremity as compared to the left. On 12/07/2019 patient was seen and examined on the medical floor she is alert and oriented 3 in no apparent distress there is no fever or chills no headache or dizziness no chest pain no shortness of breath no cough no nausea or vomiting no abdominal pain no diarrhea no burning with urination no frequency or urgency and no hematuria she is still complaining of right sided weakness involving the upper and lower extremities agent is scheduled for MRI today On 12/08/2019 patient was seen and examined on the medical floor he is alert and oriented 3 in no apparent distress there is no fever or chills no headache or dizziness no chest pain no shortness of breath no cough no nausea or vomiting no abdominal pain no diarrhea no burning with urination no frequency or urgency and no hematuria, MRI report done yesterday reviewed yesterday, case discussed with Dr. Mars yesterday neurologist, patient will need rehabilitation post this admission Objective - Vital Signs Vital signs: Vital Signs Temp 97.9 F 12/08/19 08:10 Pulse 59 L 12/08/19 08:10 Resp 16 12/08/19 08:10 BP 163/68 12/08/19 08:10 Pulse Ox 94 L 12/08/19 08:10 Intake & Output 12/07/19 12/08/19 12/08/19 18:59 06:59 18:59 Intake Total 120 Output Total 380 Balance 120 -380 Weight 66.6 kg 65.9 kg Intake: Oral 120 Output: Urine 380 Other: Voiding Method Bedpan Bedpan Bedpan Diaper Diaper Diaper # Voids 1 1 # Bowel Movements 1 1 - Exam On physical exam patient is alert and oriented 3 in no apparent distress HEENT head normocephalic and atraumatic Neck is supple no JVD no goiter no lymphadenopathy no carotid bruit Chest exam reveals a few scattered rhonchi no wheezing Cardiac exam reveals regular heart sounds S1 and S2 no gallops no murmurs Abdomen is soft nontender no organomegaly with normal bowel sounds Extremity exam reveals no edema no cyanosis or clubbing Neurological examination reveals mental status patient is alert and oriented 3, there is right facial drooping, there is no sensory deficit, there is mild motor deficit in the right upper extremity and right lower extremity as compared to the left, weakness is more pronounced on the right upper extremity, weakness has worsened since admission reflexes are 2+ symmetrical plantars are downward on the left and equivocal on the right. - Labs CBC & Chem 7: 12/07/19 05:52 12/07/19 05:52 Labs: Abnormal Lab Results - Last 24 Hours (Table) 12/07/19 12/07/19 12/08/19 Range/Units 16:21 20:10 06:27 POC Glucose (mg/dL) 270 H 262 H 182 H (75-99) mg/dL 12/08/19 Range/Units 11:51 POC Glucose (mg/dL) 233 H (75-99) mg/dL Assessment and Plan Plan: 1. Stroke with right sided weakness, symptoms more than 24 hours at this time, Plavix was added to her regimen on presentation, MRI of the brain with contrast was ordered, neurology consultation requested, echocardiogram and carotid Dopplers ordered, patient is on telemetry to rule out any evidence of paroxysmal atrial fibrillation. EKG on admission normal sinus rhythm. 2. Underlying history of hyperlipidemia maintained on Lipitor 40 mg by mouth daily, there is minimal elevation in liver enzymes will monitor closely 3. Underlying history of sso-odaukrg-orqkasmmt diabetes mellitus, glucose on admission 302, patient is maintained on glipizide will continue at this time, will check hemoglobin A1c and adjust medications as needed, at this time will add insulin to sliding scale. 4. Underlying history of hypothyroidism maintained on Synthroid 75 g daily continue, will check TSH 5. Underlying history of hypertension maintained on lisinopril 40 mg by mouth daily continue 6. Underlying history of bipolar disorder maintained on Lexapro and Depakote will continue, patient is stable at this time 7. For DVT prophylaxis Lovenox 40 mg daily SQ, for GI prophylaxis patient on Protonix Patient will need to go for rehabilitation post this admission
--- NOTE | 2019-12-08 14:14 | P.PN ---
Subjective Progress Note Date: 12/08/19 Principal diagnosis: stroke Patient was seen at bedside and feels about the same as yesterday. She stated she had a chocking episode on her food. Otherwise denies any new weakness, numbness, visual field defecits or any new neurological problem. Denies hiccups or respiratory difficulty. Objective - Vital Signs Vital signs: Vital Signs Temp 97.9 F 12/08/19 12:00 Pulse 61 12/08/19 12:00 Resp 17 12/08/19 12:00 BP 173/78 12/08/19 12:00 Pulse Ox 96 12/08/19 12:00 Intake & Output 12/07/19 12/08/19 12/08/19 18:59 06:59 18:59 Intake Total 120 Output Total 380 Balance 120 -380 Weight 66.6 kg 65.9 kg Intake: Oral 120 Output: Urine 380 Other: Voiding Method Bedpan Bedpan Bedpan Diaper Diaper Diaper # Voids 1 1 # Bowel Movements 1 1 - Additional findings Additional findings: Physical Exam: GENERAL: The patient is lying in bed and is not in acute distress. CHEST: The heart rate is regular rate rhythm. No murmurs to auscultation. No carotid bruit bilaterally. LUNG: Clear to auscultation bilaterally no wheezing noted throughout. Not labored breathing. ABDOMEN/GI: Bowel sounds present in all 4 quadrants. No tenderness to palpation throughout. NEUROLOGICAL: Higher mental function: The patient is awake, alert, oriented to self, place and time. Patient is following commands. No aphasia and no neglect. Cranial nerves: The pupils are round, equal and reactive to light and accommodation. Visual boucher are full to confrontation throughout. Extraocular movement is intact no nystagmus is noted. Facial sensation is normal to touch throughout. The facial strength is right upper and lower extremity weakness (Mercer palsy 8 years ago). Hearing is normal bilaterally to hand rub. Tongue is midline and moved [id number] without any difficulty. Mild dysarthria is noted. Motor: The strength is 0/5 in entire right upper extremity while lower extremity is also 0-1/5 and intermittent dorsiflexion and plantar flexion of right toes. Left upper extremity 5/5 and left lower extremity is 4+/5. Sensation: Sensation is decreased to touch on entire right upper and lower extremity. . Reflexes (right/left): Biceps 2+/2+; triceps 2+/2+; brachioradialis; patellar 3+/3+; ankles 1+/1+. Plantars are upgoing bilaterally. - Labs CBC & Chem 7: 12/07/19 05:52 12/07/19 05:52 Labs: Abnormal Lab Results - Last 24 Hours (Table) 12/07/19 12/07/19 12/08/19 Range/Units 16:21 20:10 06:27 POC Glucose (mg/dL) 270 H 262 H 182 H (75-99) mg/dL 12/08/19 Range/Units 11:51 POC Glucose (mg/dL) 233 H (75-99) mg/dL Assessment and Plan Assessment: This is a 69-year-old woman with a history of right Warren's palsy, hypertension, TIA, hyperlipidemia, hvr-lndsgje-desybguhp diabetes mellitus who who had right upper and lower extremity weakness and slurred speech. Her NIH won presentation as an 8. 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 She did not receive TPA since the since symptoms was unknown and was presumed symptoms of onset was more than 4.5 hours. 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 DM HTN Hyperlipidemia Hx of Mercer Palsy Plan: Acute stroke is possibly due to patient risk factors (Hx of TIA, HTN, DM and hyperlipidemia). Stroke work-up include: MRI the brain:Acute Left brainstem stroke and is in pontine area. CTA of the head and neck:-moderate stenosis of the proximal left subclavian artery that is distal to the origin of the vertebral artery and the internal mammary artery. Close to 50% stenosis of the origin of both internal carotid artery due to plaque formation Continue Aspirin 81 mg and Plavix 75mg. Continue Lipitor 40mg. target LDL less than 70. Transthoracic echocardiogram shows: Ejection fraction of 55-60%. Left atrium size is normal. There is mild to moderate tricuspid regurgitation present. HbA1c: 10.2 Lipid profile LDL 78,, cholestrol 160, triglyceride 216. PT OT and SEAFOOD PREPARER are consulted. Regarding patient episode of chocking, notified the nurse as SEAFOOD PREPARER. SEAFOOD PREPARER will reassess. Telemetry monitoring. Regarding the patient's history of diabetes and HbA1C 10.2, recommend controlling it to <6.5. We will defer management to the primary team. Patient has a history of mood disorder according to her and that she is on Depakote. For DVT prophylaxis on Enoxaparin. We'll continue to follow Rashad Murillo MD Neurohospitalist Time with Patient: Greater than 30
[2019-12-08 16:34] LABS: Glucose,Whole Blood 275 mg/dL (75-99)
[2019-12-08] MEDS: DIVALPROEX ER 250 MG TAB.ER.24H PO SCH (19:56)
[2019-12-08] MEDS: ATORVASTATIN 40 MG TAB PO SCH (19:56)
[2019-12-08] MEDS: ESCITALOPRAM 20 MG TAB PO SCH (19:56)
[2019-12-08] MEDS: LORazepam 1 MG TAB PO SCH (19:57)
[2019-12-08 20:02] VITALS: RESP 18
[2019-12-08 20:32] LABS: Glucose,Whole Blood 265 mg/dL (75-99)
[2019-12-08] MEDS ORDERED: INSULIN DETEMIR (LEVEMIR) 100 UNIT/ML SYR SQ SCH (21:00)
[2019-12-08] MEDS ORDERED: amLODIPine 5 MG TAB PO STA (22:42)
[2019-12-09 05:41] LABS: Glucose,Whole Blood 194 mg/dL (75-99)
[2019-12-09] MEDS: INSULIN ASPART (NovoLOG) 100 UNIT/ML VIAL SQ SCH ×3 (05:57→18:04)
[2019-12-09] MEDS: SODIUM CHLORIDE 0.9% 1,000 ML IV SCH ×2 (05:57→10:41)
[2019-12-09] MEDS: LEVOTHYROXINE 75 MCG TAB PO SCH (05:58)
[2019-12-09] MEDS: glipiZIDE 5 MG TAB PO SCH ×2 (05:58→18:02)
[2019-12-09] MEDS ORDERED: ERGOCALCIFEROL 50,000 UNIT CAP PO SCH (09:00)
[2019-12-09] MEDS: MULTIVITAMINS, THERA 1 EACH TAB PO SCH (09:02)
[2019-12-09] MEDS: LISINOPRIL 20 MG TAB PO SCH (09:02)
[2019-12-09] MEDS: CLOPIDOGREL 75 MG TAB PO SCH (09:02)
[2019-12-09] MEDS: ENOXAPARIN 40 MG/0.4 ML SYRINGE SQ SCH (09:02)
[2019-12-09] MEDS: ASPIRIN 81 MG PO SCH (09:02)
[2019-12-09 11:47] LABS: Basophils # (A) 0.1 k/uL (0-0.2); Basophils % (A) 1 %; Eosinophils # (A) 0.2 k/uL (0-0.7); Eosinophils % (A) 2 %; HCT 41.8 % (34.0-46.0); HGB 13.6 gm/dL (11.4-16.0); Lymphocytes # (A) 3.8 k/uL (1.0-4.8); Lymphocytes % (A) 38 %; MCH 30.4 pg (25.0-35.0); MCHC 32.6 g/dL (31.0-37.0); MCV 93.3 fL (80.0-100.0); Mean Platelet Volume 9.7; Monocytes # (A) 0.8 k/uL (0-1.0); Monocytes % (A) 8 %; Neutrophils # (A) 4.8 k/uL (1.3-7.7); Neutrophils % (A) 49 %; Platelet Count 168 k/uL (150-450); RBC 4.48 m/uL (3.80-5.40); RDW 13.1 % (11.5-15.5); WBC 9.8 k/uL (3.8-10.6)
[2019-12-09 11:48] LABS: Glucose,Whole Blood 290 mg/dL (75-99)
[2019-12-09 11:53] LABS: ALT 36 U/L (4-34); AST 55 U/L (14-36); African American GFR (CKD) >90 (>60 ml/min/1.73 sqM); Albumin 3.7 g/dL (3.5-5.0); Alkaline Phosphatase 77 U/L (38-126); Anion Gap 10 mmol/L; Blood Urea Nitrogen 16 mg/dL (7-17); Calcium 9.6 mg/dL (8.4-10.2); Carbon Dioxide 28 mmol/L (22-30); Chloride 98 mmol/L (98-107); Glucose 312 mg/dL (74-99); Non-African American GFR(CKD) >90 (>60 ml/min/1.73 sqM); Potassium 3.5 mmol/L (3.5-5.1); Sodium 136 mmol/L (137-145); Total Bilirubin 0.5 mg/dL (0.2-1.3); Total Protein 6.2 g/dL (6.3-8.2)
[2019-12-09 12:23] VITALS: BP 139/63; PULSE 63; TEMP 97.9
--- NOTE | 2019-12-09 12:31 | P.PN ---
Subjective Progress Note Date: 12/09/19 Felipa Lubin, is a 69-year-old female patient of Dr. Sams, who presented to [facility] emergency room with right sided weakness, patient stated that she fell and was unable to stand up, her was away from the house for several hours when he came back he helped her up and called EMS. Patient has a known history of hypertension, hyperlipidemia, ueg-qvhhyev-gsqdzxpzm diabetes mellitus and bipolar disorder, she stated that she had mini strokes in the past, she was seen by Dr. Suh for a neurologist. In the emergency room patient was seen and examined by Dr. Florez, on pre sentation patient was afebrile heart rate 70 respirations 17 blood pressure 111/78 and pulse ox 96% on room air, physical exam was significant for weakness in the right upper extremity and the right lower extremity, laboratory data was significant for elevated glucose level at 302, elevated triglycerides at 216, and slight elevation in liver enzymes AST [address] angiogram of the brain was negative there was moderate stenosis of the proximal left subclavian artery, computed tomography scan of the brain without contrast was done in the emergency room and revealed cerebral atrophy and evidence of 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 Patient was seen and examined on the telemetry floor, she is alert and oriented 3 in no apparent distress at this time she is answering questions appropriately, there is no fever or chills no headache or dizziness no chest pain no shortness of breath no cough no nausea or vomiting no abdominal pain no diarrhea no blood in the stools no burning with urination no frequency or urgency and no hematuria, and is still complaining of weakness in her right upper extremity and right lower extremity as compared to the left. On 12/07/2019 patient was seen and examined on the medical floor she is alert and oriented 3 in no apparent distress there is no fever or chills no headache or dizziness no chest pain no shortness of breath no cough no nausea or vomiting no abdominal pain no diarrhea no burning with urination no frequency or urgency and no hematuria she is still complaining of right sided weakness involving the upper and lower extremities agent is scheduled for MRI today On 12/08/2019 patient was seen and examined on the medical floor she is alert and oriented 3 in no apparent distress there is no fever or chills no headache or dizziness no chest pain no shortness of breath no cough no nausea or vomiting no abdominal pain no diarrhea no burning with urination no frequency or urgency and no hematuria, MRI report done yesterday reviewed yesterday, case discussed with Dr. Mars yesterday neurologist, patient will need rehabilitation post this admission On 12/09/2019 patient was seen and examined on the medical floor she is alert and oriented 3, there is evidence of facial drooping on the right, and severe weakness in the right upper extremity and the right lower extremity, no significant change since yesterday, otherwise patient denies any complaints there is no fever or chills no headache or dizziness no chest pain no shortness of breath no cough no nausea or vomiting no abdominal pain no diarrhea no burning with urination no frequency or urgency and no hematuria, at this time will obtain swallow evaluation, we are awaiting insurance authorization for rehab Objective - Vital Signs Vital signs: Vital Signs Temp 97.9 F 12/09/19 12:00 Pulse 63 12/09/19 12:00 Resp 18 12/09/19 12:00 BP 139/63 12/09/19 12:00 Pulse Ox 94 L 12/09/19 12:00 Intake & Output 12/08/19 12/09/19 12/09/19 18:59 06:59 18:59 Intake Total 120 Output Total 400 Balance -280 Weight 74 kg Intake: Oral 120 Output: Urine 400 Other: Voiding Method Bedpan Bedpan Bedpan Diaper Diaper Diaper # Voids 4 1 # Bowel Movements 2 - Exam On physical exam patient is alert and oriented 3 in no apparent distress HEENT head normocephalic and atraumatic Neck is supple no JVD no goiter no lymphadenopathy no carotid bruit Chest exam reveals a few scattered rhonchi no wheezing Cardiac exam reveals regular heart sounds S1 and S2 no gallops no murmurs Abdomen is soft nontender no organomegaly with normal bowel sounds Extremity exam reveals no edema no cyanosis or clubbing Neurological examination reveals mental status patient is alert and oriented 3, there is right facial drooping, there is no sensory deficit, there is mild motor deficit in the right upper extremity and right lower extremity as compared to the left, weakness is more pronounced on the right upper extremity, reflexes are 2+ symmetrical plantars are downward on the left and equivocal on the right. - Labs CBC & Chem 7: 12/09/19 11:26 12/09/19 11:26 Labs: Abnormal Lab Results - Last 24 Hours (Table) 12/08/19 12/08/19 12/09/19 Range/Units 16:28 20:31 05:40 Sodium (137-145) mmol/L Creatinine (0.52-1.04) mg/dL Glucose (74-99) mg/dL POC Glucose (mg/dL) 275 H 265 H 194 H (75-99) mg/dL AST (14-36) U/L ALT (4-34) U/L Total Protein (6.3-8.2) g/dL 12/09/19 12/09/19 Range/Units 11:26 11:46 Sodium 136 L (137-145) mmol/L Creatinine 0.47 L (0.52-1.04) mg/dL Glucose 312 H (74-99) mg/dL POC Glucose (mg/dL) 290 H (75-99) mg/dL AST 55 H (14-36) U/L ALT 36 H (4-34) U/L Total Protein 6.2 L (6.3-8.2) g/dL Assessment and Plan Plan: 1. Stroke with right sided weakness, symptoms more than 24 hours at this time, Plavix was added to her regimen on presentation, MRI of the brain with contrast was ordered, neurology consultation requested, echocardiogram and carotid Dopplers ordered, patient is on telemetry to rule out any evidence of paroxysmal atrial fibrillation. EKG on admission normal sinus rhythm. 2. Underlying history of hyperlipidemia maintained on Lipitor 40 mg by mouth daily, there is minimal elevation in liver enzymes will monitor closely 3. Underlying history of yid-rpaubqv-lwxapppfj diabetes mellitus, glucose on admission 302, patient is maintained on glipizide will continue at this time, will check hemoglobin A1c and adjust medications as needed, at this time will add insulin to sliding scale. 4. Underlying history of hypothyroidism maintained on Synthroid 75 g daily continue, will check TSH 5. Underlying history of hypertension maintained on lisinopril 40 mg by mouth daily continue 6. Underlying history of bipolar disorder maintained on Lexapro and Depakote will continue, patient is stable at this time 7. For DVT prophylaxis Lovenox 40 mg daily SQ, for GI prophylaxis patient on Protonix Patient will need to go for rehabilitation post this admission
--- NOTE | 2019-12-09 14:34 | P.DS ---
Providers Date of admission: 12/05/19 22:35 Expected date of discharge: 12/09/19 Attending physician: Katie Bailey Consults: 12/05/19 22:36 Consult Physician Routine Consulting Provider: Paty Liang Consult Reason/Comments: cva Do you want consulting provider notified?: Yes 12/07/19 10:46 Consult Physician Routine Consulting Provider: Иван Fox Consult Reason/Comments: inpatient rehab Do you want consulting provider notified?: Yes 12/07/19 17:25 Consult Physician Routine Consulting Provider: Rashad Murillo Consult Reason/Comments: stroke Do you want consulting provider notified?: Yes Primary care physician: Tracie Sams [facility] Course: Diagnosis on discharge: 1. Stroke with right sided weakness, MRI of the brain reveals acute ischemic changes in the left brain stem, symptoms more than 24 hours at this time, Plavix was added to her regimen on presentation, MRI of the brain with contrast was ordered, neurology consultation requested, echocardiogram and carotid Dopplers ordered, patient is on telemetry to rule out any evidence of paroxysmal atrial fibrillation. EKG on admission normal sinus rhythm. 2. Underlying history of hyperlipidemia maintained on Lipitor 40 mg by mouth daily, there is minimal elevation in liver enzymes will monitor closely 3. Underlying history of pjh-yfwvzzl-xrftsmkcz diabetes mellitus, glucose on admission 302, patient is maintained on glipizide will continue at this time, will check hemoglobin A1c and adjust medications as needed, at this time will add insulin to sliding scale. 4. Underlying history of hypothyroidism maintained on Synthroid 75 g daily continue, will check TSH 5. Underlying history of hypertension maintained on lisinopril 40 mg by mouth daily continue 6. Underlying history of bipolar disorder maintained on Lexapro and Depakote will continue, patient is stable at this time 7. For DVT prophylaxis Lovenox 40 mg daily SQ, for GI prophylaxis patient on Protonix Hospital course: Felipa Lubin, is a 69-year-old female patient of Dr. Sams, who presented to [facility] emergency room with right sided weakness, patient stated that she fell and was unable to stand up, her was away from the house for several hours when he came back he helped her up and called EMS. Julianne ent has a known history of hypertension, hyperlipidemia, agk-uqkvpap-tfymthxkl diabetes mellitus and bipolar disorder, she stated that she had mini strokes in the past, she was seen by Dr. Suh for a neurologist. In the emergency room patient was seen and examined by Dr. Florez, on presentation patient was afebrile heart rate 70 respirations 17 blood pressure 111/78 and pulse ox 96% on room air, physical exam was significant for weakness in the right upper extremity and the right lower extremity, laboratory data was significant for elevated glucose level at 302, elevated triglycerides at 216, and slight elevation in liver enzymes AST [address] angiogram of the brain was negative there was moderate stenosis of the proximal left subclavian artery, computed tomography scan of the brain without contrast was done in the emergency room and revealed cerebral atrophy and evidence of old anterior right internal capsule lacunar infarct no acute intracranial abnormality, patient was maintain ed on aspirin 81 mg prior to admission, I added Plavix 75 mg by mouth daily, patient is admitted to telemetry floor, neurology consultation was requested, MRI of the brain with contrast with requested. Patient was seen and examined on the telemetry floor, she is alert and oriented 3 in no apparent distress at this time she is answering questions appropriately, there is no fever or chills no headache or dizziness no chest pain no shortness of breath no cough no nausea or vomiting no abdominal pain no diarrhea no blood in the stools no burning with urination no frequency or urgency and no hematuria, and is still complaining of weakness in her right upper extremity and right lower extremity as compared to the left. On 12/07/2019 patient was seen and examined on the medical floor she is alert and oriented 3 in no apparent distress there is no fever or chills no headache or dizziness no chest pain no shortness of breath no cough no nausea or vomiting no abdominal pain no diarrhea no burning with urination no frequency or urgency and no hematuria she is still complaining of right sided weakness involving the upper and lower extremities agent is scheduled for MRI today On 12/08/2019 patient was seen and examined on the medical floor she is alert and oriented 3 in no apparent distress there is no fever or chills no headache or dizziness no chest pain no shortness of breath no cough no nausea or vomiting no abdominal pain no diarrhea no burning with urination no frequency or urgency and no hematuria, MRI report done yesterday reviewed yesterday, case discussed with Dr. Mars yesterday neurologist, patient will need rehabilitation post this admission On 12/09/2019 patient was seen and examined on the medical floor she is alert and oriented 3, there is evidence of facial drooping on the right, and severe weakness in the right upper extremity and the right lower extremity, no significant change since yesterday, otherwise patient denies any complaints there is no fever or chills no headache or dizziness no chest pain no shortness of breath no cough no nausea or vomiting no abdominal pain no diarrhea no burning with urination no frequency or urgency and no hematuria, at this time will obtain swallow evaluation, we are awaiting insurance authorization for rehab Patient Condition at Discharge: Serious Plan - Discharge Summary New Discharge Prescriptions: New Insulin Detemir (Levemir) [Levemir] 10 unit SQ HS syr Enoxaparin [Lovenox] 40 mg SQ DAILY syringe INSULIN ASPART (NovoLOG) [NovoLOG (formulary)] 0 unit SQ ACHS vial Clopidogrel [Plavix] 75 mg PO DAILY tab Acetaminophen Tab [Tylenol] 650 mg PO Q6HR PRN tab PRN Reason: Fever And/ Or Pain Continue Escitalopram [Lexapro] 20 mg PO HS Divalproex ER [Depakote ER] 750 mg PO HS Multivitamins, Thera [Multivitamin (formulary)] 1 tab PO DAILY Ergocalciferol [Vitamin D2 (DRISDOL)] 50,000 unit PO WE Aspirin EC [Ecotrin Low Dose] 81 mg PO BID Omeprazole 20 mg PO DAILY PRN PRN Reason: Heartburn Lisinopril 40 mg PO DAILY LORazepam [Ativan] 1 mg PO HS glipiZIDE XL [Glucotrol XL] 10 mg PO DAILY Levothyroxine Sodium [Synthroid] 75 mcg PO DAILY Atorvastatin Calcium [Lipitor] 40 mg PO HS Discharge Medication List Divalproex ER [Depakote ER] 750 mg PO HS 01/05/16 [History] Escitalopram [Lexapro] 20 mg PO HS 01/05/16 [History] Aspirin EC [Ecotrin Low Dose] 81 mg PO BID 12/05/19 [History] Atorvastatin Calcium [Lipitor] 40 mg PO HS 12/05/19 [History] Ergocalciferol [Vitamin D2 (DRISDOL)] 50,000 unit PO WE 12/05/19 [History] LORazepam [Ativan] 1 mg PO HS 12/05/19 [History] Levothyroxine Sodium [Synthroid] 75 mcg PO DAILY 12/05/19 [History] Lisinopril 40 mg PO DAILY 12/05/19 [History] Multivitamins, Thera [Multivitamin (formulary)] 1 tab PO DAILY 12/05/19 [History] Omeprazole 20 mg PO DAILY PRN 12/05/19 [History] glipiZIDE XL [Glucotrol XL] 10 mg PO DAILY 12/05/19 [History] Acetaminophen Tab [Tylenol] 650 mg PO Q6HR PRN tab 12/09/19 [Rx] Clopidogrel [Plavix] 75 mg PO DAILY tab 12/09/19 [Rx] Enoxaparin [Lovenox] 40 mg SQ DAILY syringe 12/09/19 [Rx] INSULIN ASPART (NovoLOG) [NovoLOG (formulary)] 0 unit SQ ACHS vial 12/09/19 [Rx] Insulin Detemir (Levemir) [Levemir] 10 unit SQ HS syr 12/09/19 [Rx] Follow up Appointment(s)/Referral(s): Tracie Sams MD [Primary Care Provider] - 1-2 days
--- NOTE | 2019-12-09 14:43 | FL ---
Modified barium swallow. HISTORY: Dysphagia. Modified barium swallow was performed with the department of speech pathology. The patient was prese nted with various consistencies of barium. Patient admitted due to acute cva. Aspiration risks. Perfo rmed by Dr. Arita and Marci from speech. Fluoro time: 1.01. There is no evidence for aspiration or penetration. Full report is to follow from the department of speech pathology. Impression: Normal study.
== END 2019-12-09 18:15 | DRG 65 ==
LOC: EC 20:44 → 3SCARD 22:35
PROVIDERS: ADMIT Internal Medicine; ATTEND Internal Medicine
DX: I63.9 Cerebral infarction, unspecified (principal); G81.91 Hemiplegia, unspecified affecting right dominant side; R29.708 NIHSS score 8; R29.810 Facial weakness; Z79.82 Long term (current) use of aspirin; G25.81 Restless legs syndrome; I10 Essential (primary) hypertension; E03.9 Hypothyroidism, unspecified; E11.9 Type 2 diabetes mellitus without complications; E78.00 Pure hypercholesterolemia, unspecified; E78.5 Hyperlipidemia, unspecified; F31.9 Bipolar disorder, unspecified; M54.31 Sciatica, right side; R26.9 Unspecified abnormalities of gait and mobility; I65.23 Occlusion and stenosis of bilateral carotid arteries; R40.2362 Coma scale, best motor response, obeys commands, at arrival to emergency department; R40.2142 Coma scale, eyes open, spontaneous, at arrival to emergency department; R40.2252 Coma scale, best verbal response, oriented, at arrival to emergency department; Z87.891 Personal history of nicotine dependence; Z91.81 History of falling; M79.601 Pain in right arm; Z98.42 Cataract extraction status, left eye; Z98.41 Cataract extraction status, right eye; Z96.1 Presence of intraocular lens; Z80.42 Family history of malignant neoplasm of prostate; Z11.59 Encounter for screening for other viral diseases; Z79.84 Long term (current) use of oral hypoglycemic drugs; Z79.890 Hormone replacement therapy; Z79.899 Other long term (current) drug therapy; Z82.49 Family history of ischemic heart disease and other diseases of the circulatory system; Z86.73 Personal history of transient ischemic attack (TIA), and cerebral infarction without residual deficits; Z90.710 Acquired absence of both cervix and uterus; Z86.010 Personal history of colon polyps; I07.1 Rheumatic tricuspid insufficiency
CPT/HCPCS: 36415; 70450; 70496; 70498; 70553; 71046; 74230; 80053; 80061; 80164; 82140; 82550; 82553; 83036; 84484; 85025; 85610; 85730; 87635; 93005; 93306; 96360; 99291

== ENCOUNTER 2023-07-08 21:29 | Inpatient (IN) | payer MEDICARE ==
[2023-07-08] MEDS ORDERED: HEPARIN SODIUM 1,000 UN/ML (10ML VL) IV PRN (21:58)
--- NOTE | 2023-07-08 21:58 | ED ---
General Adult HPI - General Chief complaint: Chest Pain Stated complaint: Heart Failure Time Seen by Provider: 07/08/23 21:36 Source: EMS Mode of arrival: EMS Limitations: altered mental status (Patient appears to have some delirium versus underlying dementia.) - History of Present Illness Initial comments: This patient is a 73-year-old woman who arrives here as a transfer from [facility]. The patient reports that she was sent to the other facility because she was sick. Questioning further reveals that she had been having vomiting. The patient denies chest pain, dyspnea, cough. The workup at the other facility revealed a troponin that initially was over 2 and then 1 subsequently rechecked had gone above 5. Patient had CT scan of the abdomen and pelvis at the other facility which per the report showed a lower lobe infiltrate consistent with pneumonia. Chest x-ray at the other facility also revealed left lower lobe infiltrate. When I review the patient, she is denying again chest pain and dyspnea. -: unknown Location: abdomen Consistency: now resolved Improves with: none Worsens with: none Associated Symptoms: nausea/vomiting (Now resolved) Treatments Prior to Arrival: none - Related Data Home Medications Medication Instructions Recorded Confirmed Levothyroxine Sodium [Synthroid] 75 mcg PO DAILY@0500 12/05/19 07/09/23 ARIPiprazole [Abilify] 2 mg PO DAILY@0500 07/09/23 07/09/23 Acetaminophen Tab [Tylenol] 650 mg PO Q4H PRN 07/09/23 07/09/23 Benzocaine 20 % Gel [Orajel] 1 applic MM Q6H PRN 07/09/23 07/09/23 Divalproex Sprinkle [Depakote 375 mg PO HS@199907/09/23 07/09/23 Sprinkle] Famotidine [Pepcid] 20 mg PO DAILY PRN 07/09/23 07/09/23 Hydrocortisone Cream 1 applic TOPICAL BID PRN 07/09/23 07/09/23 [Hydrocortisone 2.5% Cream] Insulin Glargine/Lixisenatide 40 units SQ DAILY@0700 07/09/23 07/09/23 [Soliqua 100 Unit-33 Mcg/ml Pen] Insulin Lispro [humaLOG Kwikpen] 2 unit SQ TID@0700,1100,1700 07/09/23 07/09/23 Insulin Lispro [humaLOG Kwikpen] See Protocol SQ TID@0700,1100,1700 07/09/23 07/09/23 Ketoconazole 2% Cream [Nizoral 2%] 1 applic TOPICAL DAILY PRN 07/09/23 07/09/23 Magnesium Hydroxide [Milk of 7,200 mg PO Q48H PRN 07/09/23 07/09/23 Magnesia Concentrate] Ondansetron [Zofran] 4 mg PO Q6H PRN 07/09/23 07/09/23 Pioglitazone [Actos] 15 mg PO DAILY@1100 07/09/23 07/09/23 Polyvinyl Alcohol/Povidone [Clear 1 drop BOTH EYES BID@050,199907/09/2306/27 Eyes Natural Tears Drop] bisacodyL [Dulcolax] 10 mg RECTAL Q72H PRN 07/09/23 07/09/23 buPROPion SR [Wellbutrin SR] 150 mg PO DAILY@0500 07/09/23 07/09/23 metFORMIN HCL [Glucophage] 500 mg PO BID@050,199907/09/23 07/09/23 Previous Rx's Medication Instructions Recorded Aspirin 81 mg PO DAILY tab 07/16/23 Atorvastatin [Lipitor] 40 mg PO HS tab 07/16/23 Budesonide-Formot 160-4.5 Mcg 2 puff INHALATION RT-BID each 07/16/23 [Symbicort 160-4.5 Mcg Inhaler] HYDROcodone/APAP 5-325MG [[place] 1 each PO Q6H PRN 3 Days #12 tab 07/16/23 5-325] HYDROcodone/APAP 5-325MG [[place] 1 tab PO Q6H PRN 3 Days #12 tab 07/16/23 5-325] INSULIN ASPART (NovoLOG) [NovoLOG 0 unit SQ ACHS each 07/16/23 (formulary)] Ipratropium-Albuterol Nebulize 3 ml INHALATION RT-Q2H PRN each 07/16/23 [Duoneb 0.5 mg-3 mg/3 ml Soln] Ipratropium-Albuterol Nebulize 3 ml INHALATION RT-QID each 07/16/23 [Duoneb 0.5 mg-3 mg/3 ml Soln] Losartan [Cozaar] 75 mg PO DAILY tab 07/16/23 Metoprolol Tartrate [Lopressor] 12.5 mg PO BID tab 07/16/23 Ticagrelor [Brilinta] 90 mg PO BID tab 07/16/23 predniSONE 30 mg PO DAILY 12 Days #14 tab 07/16/23 Allergies Allergy/AdvReac Type Severity Reaction Status Date / Time No Known Allergies Allergy Verified 07/09/23 07:42 Review of Systems ROS Statement: Those systems with pertinent positive or pertinent negative responses have been documented in the HPI. ROS Other: All systems not noted in ROS Statement are negative. Limitations: ROS unobtainable due to patients medical condition (Dementia versus delirium) Constitutional: Denies: fever, chills Respiratory: Denies: cough, dyspnea Cardiovascular: Denies: chest pain, edema Gastrointestinal: Reports: vomiting. Denies: abdominal pain, diarrhea Genitourinary: Reports: other (Indwelling Sy catheter) Past Medical History Past Medical History: Diabetes Mellitus, Hyperlipidemia, Hypertension, Pneumonia, Thyroid Disorder Additional Past Medical History / Comment(s): NIDDM type II, hypothyroid, PAD, bronchitis, sinus problems, back pain with R sided sciatica, RLS. History of Any Multi-Drug Resistant Organisms: None Reported Past Surgical History: Appendectomy, Breast Surgery, Cholecystectomy, Hernia Repair, Hysterectomy, Tubal Ligation Additional Past Surgical History / Comment(s): Aortobifemoral bypass, ventral hernia repair, colonoscopy with benign polypectomy, bilateral cataract removal with lens implants, benign L breast bx. Past Anesthesia/Blood Transfusion Reactions: No Reported Reaction, Motion Sickness Past Psychological History: Bipolar Past Alcohol Use History: None Reported Past Drug Use History: None Reported - Past Family History Father Family Medical History: Cancer Additional Family Medical History / Comment(s): Father of prostate cancer at the age of 84 yrs. Mother Additional Family Medical History / Comment(s): Mother had heart problems and at the age of 64yrs. Pt states her mother never had a ND. General Exam General appearance: alert, in no apparent distress Head exam: Present: atraumatic, normocephalic Eye exam: Present: normal appearance. Absent: scleral icterus, conjunctival injection ENT exam: Present: mucous membranes dry Neck exam: Present: normal inspection, full ROM. Absent: tenderness Respiratory exam: Present: rales. Absent: respiratory distress, wheezes, rhonchi, stridor, accessory muscle use Cardiovascular Exam: Present: regular rate, normal rhythm, normal heart sounds. Absent: systolic murmur, diastolic murmur, rubs, gallop GI/Abdominal exam: Present: soft, hypoactive bowel sounds. Absent: distended, tenderness, guarding, rebound, rigid, mass, pulsatile mass Extremities exam: Present: normal inspection, normal capillary refill. Absent: pedal edema, calf tenderness Back exam: Present: normal inspection Neurological exam: Present: alert. Absent: oriented X3, motor sensory deficit Skin exam: Present: warm, dry, intact, normal color. Absent: rash Course Vital Signs 07/08/23 07/09/23 07/09/23 21:37 00:00 01:19 Temperature 100.3 F H 99.2 F Pulse Rate 71 70 69 Respiratory 18 21 22 Rate Blood Pressure 95/51 97/49 101/43 O2 Sat by Pulse 96 95 94 L Oximetry 07/09/23 07/09/23 07/09/23 03:05 03:19 04:24 Temperature Pulse Rate 61 61 Respiratory 19 13 Rate Blood Pressure 97/48 99/48 111/48 O2 Sat by Pulse 100 95 Oximetry 07/09/23 07/09/23 07/09/23 06:00 07:45 08:41 Temperature 99.2 F Pulse Rate 63 64 Respiratory 17 17 Rate Blood Pressure 111/51 100/50 O2 Sat by Pulse 97 94 L 96 Oximetry 07/09/23 07/09/23 09:01 10:14 Temperature 99.0 F 99.3 F Pulse Rate 62 64 Respiratory 20 18 Rate Blood Pressure 116/50 99/63 O2 Sat by Pulse 95 93 L Oximetry EKG Findings - EKG Comments: EKG Findings:: Possible old inferior infarct. - EKG Results: EKG: interpreted by ERMD, sinus rhythm (Rate 66 bpm), normal axis - Blocks, [place], Hypertrophy, ST Abn: QRS axis and voltage: low voltage (<0.5 MV total QRS and <1.0 MV in each precordial lead) Medical Decision Making - Medical Decision Making Patient is 73-year-old woman transferred here from outside hospital for NSTEMI. The patient denying symptoms on arrival. She is admitted with cardiology consultation. When the patient's troponin resulted I discussed case with cardiology and they plan to see the patient early. She continues to be as ymptomatic and is on heparin. Was pt. sent in by a medical professional or institution ([facility], [facility], urgent care, hospital, or [facility]...) When possible be specific @ -Patient is transferred here from the outside hospital Did you speak to anyone other than the patient for history (EMS, parent, family, police, friend...)? What history was obtained from this source @ -[No] Did you review nursing and triage notes (agree or disagree)? Why? @ -[I reviewed and agree with nursing and triage notes] Were old charts reviewed (outside hosp., previous admission, EMS record, old EKG, old radiological studies, urgent care reports/EKG's, [facility] records)? Report findings @ -[The transfer charts were reviewed] Differential Diagnosis (chest pain, altered mental status, abdominal pain women, abdominal pain men, vaginal bleeding, weakness, fever, dyspnea, syncope, headache, dizziness, GI bleed, back pain, seizure, CVA, palpatations, mental health, musculoskeletal)? @ -[Differential Chest Pain: Stable Angina, Unstable Angina, STEMI, NSTEMI Aortic Dissection, Pneumothorax, Musculoskeletal, Esophageal Spasm GERD, Cholecystitis, Pancreatitis, Zoster, this is not meant to be an all-inclusive list. EKG interpreted by me (3pts min.). @ -[I interpreted As above] X-rays interpreted by me (1pt min.). @ -[None done] CT interpreted by me (1pt min.). @ -[None done] U/S interpreted by me (1pt. min.). @ -[None done] What testing was considered but not performed or refused? (CT, X-rays, U/S, labs)? Why? @ -[None] What meds were considered but not given or refused? Why? @ -[None] Did you discuss the management of the patient with other professionals (professionals i.e. [facility], [facility], lab, RT, psych nurse, foster care social worker, veneer gluer, teacher, founder and chief technical officer, telephonic case manager)? Give summary @ -[I discussed the case with the admitting physician and with cardiology on- call, see the above Was smoking cessation discussed for >3mins.? @ -[No] Was critical care preformed (if so, how long)? @ -[Yes 30 minutes Were there social determinants of health that impacted care today? How? (Homelessness, low income, unemployed, alcoholism, drug addiction, transportation, low edu. Level, literacy, decrease access to med. care, half-way, rehab)? @ -[No] Was there de-escalation of care discussed even if they declined (Discuss DNR or withdrawal of care, Hospice)? DNR status @ -[No] What co-morbidities impacted this encounter? (DM, HTN, Smoking, COPD, CAD, Cancer, CVA, ARF, Chemo, Hep., AIDS, mental health diagnosis, sleep apnea, morbid obesity)? @ -[None] Was patient admitted / discharged? Hospital course, mention meds given and route, prescriptions, significant lab abnormalities, going to OR and other pertinent info. @ -[See above Undiagnosed new problem with uncertain prognosis? @ -[No] Drug Therapy requiring intensive monitoring for toxicity (Heparin, Nitro, Insulin, Cardizem)? @ -[IV heparin Were any procedures done? @ -[No] Diagnosis/symptom? @ -[Acute NSTEMI Acute, or Chronic, or Acute on Chronic? @ -[Acute Uncomplicated (without systemic symptoms) or Complicated (systemic symptoms)? @ -[Uncomplicated Side effects of treatment? @ -[No] Exacerbation, Progression, or Severe Exacerbation? @ -[No] Poses a threat to life or bodily function? How? (Chest pain, USA, ND, pneumonia, PE, COPD, DKA, ARF, appy, cholecystitis, CVA, Diverticulitis, Homicidal, Suicidal, threat to staff... and all critical care pts) @ -[Yes - Lab Data Result diagrams: 07/13/23 07:09 07/13/23 07:09 Lab Results 07/08/23 07/08/23 07/08/23 Range/Units 21:56 21:56 21:56 WBC 7.8 (3.8-10.6) k/uL RBC 3.66 L (3.80-5.40) m/uL Hgb 11.8 (11.4-16.0) gm/dL Hct 35.4 (34.0-46.0) % MCV 96.8 (80.0-100.0) fL MCH 32.2 (25.0-35.0) pg MCHC 33.3 (31.0-37.0) g/dL RDW 13.6 (11.5-15.5) % Plt Count 137 L (150-450) k/uL MPV 9.0 Neutrophils % 74 % Lymphocytes % 12 % Monocytes % 10 % Eosinophils % 2 % Basophils % 0 % Neutrophils # 5.8 (1.3-7.7) k/uL Lymphocytes # 0.9 L (1.0-4.8) k/uL Monocytes # 0.8 (0-1.0) k/uL Eosinophils # 0.1 (0-0.7) k/uL Basophils # 0.0 (0-0.2) k/uL PT 16.6 H (10.0-12.5) sec INR 1.6 H (<1.2) APTT >200.0 H* (22.0-30.0) sec Sodium (137-145) mmol/L Potassium (3.5-5.1) mmol/L Chloride (98-107) mmol/L Carbon Dioxide (22-30) mmol/L Anion Gap mmol/L BUN (7-17) mg/dL Creatinine (0.52-1.04) mg/dL Est GFR (CKD-EPI)AfAm (>60 ml/min/1.73 sqM) Est GFR (CKD-EPI)NonAf (>60 ml/min/1.73 sqM) Glucose (74-99) mg/dL Plasma Lactic Acid [place] (0.7-2.0) mmol/L Calcium (8.4-10.2) mg/dL Magnesium (1.6-2.3) mg/dL Total Bilirubin (0.2-1.3) mg/dL AST (14-36) U/L ALT (4-34) U/L Alkaline Phosphatase (38-126) U/L Troponin I (0.000-0.034) ng/mL Total Protein (6.3-8.2) g/dL Albumin (3.5-5.0) g/dL Urine Color Yellow Urine Appearance Cloudy H (Clear) Urine pH 5.5 (5.0-8.0) Ur Specific [place] 1.027 (1.001-1.035) Urine Protein 1+ H (Negative) Urine Glucose (UA) Negative (Negative) Urine Ketones 1+ H (Negative) Urine Blood Large H (Negative) Urine Nitrite Negative (Negative) Urine Bilirubin Negative (Negative) Urine Urobilinogen 2.0 (<2.0) mg/dL Ur Leukocyte Esterase Negative (Negative) Urine RBC 171 H (0-5) /hpf Urine WBC 5 (0-5) /hpf Ur Squamous Epith Cells 1 (0-4) /hpf Hyaline Casts 8 H (0-2) /lpf Urine Mucus Many H (None) /hpf 07/08/23 07/08/23 07/08/23 Range/Units 21:56 21:56 21:56 WBC (3.8-10.6) k/uL RBC (3.80-5.40) m/uL Hgb (11.4-16.0) gm/dL Hct (34.0-46.0) % MCV (80.0-100.0) fL MCH (25.0-35.0) pg MCHC (31.0-37.0) g/dL RDW (11.5-15.5) % Plt Count (150-450) k/uL MPV Neutrophils % % Lymphocytes % % Monocytes % % Eosinophils % % Basophils % % Neutrophils # (1.3-7.7) k/uL Lymphocytes # (1.0-4.8) k/uL Monocytes # (0-1.0) k/uL Eosinophils # (0-0.7) k/uL Basophils # (0-0.2) k/uL PT (10.0-12.5) sec INR (<1.2) APTT (22.0-30.0) sec Sodium 137 (137-145) mmol/L Potassium 4.3 (3.5-5.1) mmol/L Chloride 101 (98-107) mmol/L Carbon Dioxide 28 (22-30) mmol/L Anion Gap 8 mmol/L BUN 34 H (7-17) mg/dL Creatinine 0.72 (0.52-1.04) mg/dL Est GFR (CKD-EPI)AfAm >90 (>60 ml/min/1.73 sqM) Est GFR (CKD-EPI)NonAf 83 (>60 ml/min/1.73 sqM) Glucose 94 (74-99) mg/dL Plasma Lactic Acid [place] 1.3 (0.7-2.0) mmol/L Calcium 8.5 (8.4-10.2) mg/dL Magnesium 1.8 (1.6-2.3) mg/dL Total Bilirubin 0.5 (0.2-1.3) mg/dL AST 171 H (14-36) U/L ALT 49 H (4-34) U/L Alkaline Phosphatase 56 (38-126) U/L Troponin I 12.300 H* (0.000-0.034) ng/mL Total Protein 6.4 (6.3-8.2) g/dL Albumin 3.6 (3.5-5.0) g/dL Urine Color Urine Appearance (Clear) Urine pH (5.0-8.0) Ur Specific [place] (1.001-1.035) Urine Protein (Negative) Urine Glucose (UA) (Negative) Urine Ketones (Negative) Urine Blood (Negative) Urine Nitrite (Negative) Urine Bilirubin (Negative) Urine Urobilinogen (<2.0) mg/dL Ur Leukocyte Esterase (Negative) Urine RBC (0-5) /hpf Urine WBC (0-5) /hpf Ur Squamous Epith Cells (0-4) /hpf Hyaline Casts (0-2) /lpf Urine Mucus (None) /hpf - EKG Data -: EKG Interpreted by Tn EKG shows normal: sinus rhythm, axis (Normal), intervals (Normal), QRS complexes (Decreased QRS complexes. Probable old inferior ND based on Q waves.), ST-T waves (lateral ischemia) Rate: normal (Rate 66 bpm) Disposition Clinical Impression: NSTEMI (non-ST elevated myocardial infarction), Pneumonia Disposition: ADMITTED IP TO THIS HOSP Condition: Stable Is patient prescribed a controlled substance at d/c from ED?: No
[2023-07-08] MEDS: HEPARIN SOD,PORK IN 0.45% NACL 25,000 UNIT in 0.45% NACL 1 250ML.BAG IV SCH (22:36)
[2023-07-08] MEDS ORDERED: NITROGLYCERIN SL TABS 0.4 MG TAB SUBLINGUAL PRN (22:39)
[2023-07-08 22:46] LABS: Basophils % (A) 0 %; Eosinophils # (A) 0.1 k/uL (0-0.7); Eosinophils % (A) 2 %; HCT 35.4 % (34.0-46.0); HGB 11.8 gm/dL (11.4-16.0); Lymphocytes # (A) 0.9 k/uL (1.0-4.8); Lymphocytes % (A) 12 %; MCH 32.2 pg (25.0-35.0); MCHC 33.3 g/dL (31.0-37.0); MCV 96.8 fL (80.0-100.0); Monocytes # (A) 0.8 k/uL (0-1.0); Monocytes % (A) 10 %; Neutrophils # (A) 5.8 k/uL (1.3-7.7); Neutrophils % (A) 74 %; Platelet Count 137 k/uL (150-450); RBC 3.66 m/uL (3.80-5.40); RDW 13.6 % (11.5-15.5); WBC 7.8 k/uL (3.8-10.6)
[2023-07-08] MEDS: AZITHROMYCIN 500 MG TAB PO STA (22:59)
[2023-07-08] MEDS: SODIUM CHLORIDE 0.9% 1,000 ML IV SCH (23:01)
[2023-07-08 23:17] LABS: Appearance,Urine Cloudy (Clear); Bilirubin,Urine Negative (Negative); Blood,Urine Large (Negative); Color,Urine Yellow; Glucose,Urine (UA) Negative (Negative); Hyaline Casts,Urine 8 /lpf (0-2); Ketones,Urine 1+ (Negative); Leukocyte Esterase,Urine Negative (Negative); Mucus,Urine Many /hpf; Nitrite,Urine Negative (Negative); PH, Urine 5.5 (5.0-8.0); Protein,Urine 1+ (Negative); RBC,Urine 171 /hpf (0-5); Specific Gravity,Urine 1.027 (1.001-1.035); Squamous Epithelial Cell,Urine 1 /hpf (0-4); WBC,Urine 5 /hpf (0-5)
[2023-07-08 23:18] LABS: ALT 49 U/L (4-34); AST 171 U/L (14-36); African American GFR (CKD) >90 (>60 ml/min/1.73 sqM); Albumin 3.6 g/dL (3.5-5.0); Alkaline Phosphatase 56 U/L (38-126); Anion Gap 8 mmol/L; Blood Urea Nitrogen 34 mg/dL (7-17); Calcium 8.5 mg/dL (8.4-10.2); Carbon Dioxide 28 mmol/L (22-30); Chloride 101 mmol/L (98-107); Glucose 94 mg/dL (74-99); Magnesium 1.8 mg/dL (1.6-2.3); Non-African American GFR(CKD) 83 (>60 ml/min/1.73 sqM); Potassium 4.3 mmol/L (3.5-5.1); Sodium 137 mmol/L (137-145); Total Bilirubin 0.5 mg/dL (0.2-1.3)
--- NOTE | 2023-07-08 23:24 | XR ---
EXAM: XR Chest, 1 View CLINICAL HISTORY: XR Reason: chest pain TECHNIQUE: Frontal view of the chest. COMPARISON: December 05, 2019 FINDINGS: Lungs: Unremarkable. No consolidation. Pleural space: Unremarkable. No pneumothorax. Heart: The cardiac silhouette is mildly enlarged. Mediastinum: Unremarkable. Normal mediastinal contour. Bones/joints: Mild to moderate degenerative changes throughout the thoracic spine. No acute fracture. Vasculature: The aortic arch is mildly calcified but appears nondilated. Upper abdomen: There is no pneumoperitoneum under the diaphragm. IMPRESSION: No acute findings in the chest.
[2023-07-08 23:29] LABS: Total Protein 6.4 g/dL (6.3-8.2)
[2023-07-09] MEDS: ACETAMINOPHEN TAB 325 MG TAB PO PRN (00:21)
[2023-07-09 00:38] LABS: INR 1.6 (<1.2); Prothrombin Time 16.6 sec (10.0-12.5)
[2023-07-09 00:40] LABS: Partial Thromboplastin Time >200.0 sec (22.0-30.0)
[2023-07-09 04:27] LABS: Basophils % (A) 0 %; Eosinophils % (A) 0 %; HCT 32.4 % (34.0-46.0); HGB 10.7 gm/dL (11.4-16.0); Lymphocytes # (A) 1.2 k/uL (1.0-4.8); Lymphocytes % (A) 18 %; MCH 31.8 pg (25.0-35.0); MCHC 32.9 g/dL (31.0-37.0); MCV 96.5 fL (80.0-100.0); Mean Platelet Volume 10.7; Monocytes # (A) 0.6 k/uL (0-1.0); Monocytes % (A) 9 %; Neutrophils # (A) 4.4 k/uL (1.3-7.7); Neutrophils % (A) 69 %; Platelet Count 139 k/uL (150-450); RBC 3.35 m/uL (3.80-5.40); RDW 13.6 % (11.5-15.5); WBC 6.4 k/uL (3.8-10.6)
[2023-07-09 04:35] LABS: INR 1.2 (<1.2); Partial Thromboplastin Time 52.2 sec (22.0-30.0); Prothrombin Time 12.9 sec (10.0-12.5)
[2023-07-09] MEDS: LEVOTHYROXINE 75 MCG TAB PO SCH (06:00)
[2023-07-09] MEDS ORDERED: ALPRAZolam 0.5 MG TAB PO PRN (07:43)
[2023-07-09] MEDS ORDERED: NITROGLYCERIN SL TABS 0.4 MG TAB SUBLINGUAL PRN (07:43)
[2023-07-09] MEDS ORDERED: ALPRAZolam 0.25 MG TAB PO PRN (07:43)
[2023-07-09] MEDS: ASPIRIN 325 MG TAB PO STA (07:52)
[2023-07-09] MEDS: ATORVASTATIN 80 MG TAB PO STA (07:52)
[2023-07-09] MEDS: ASPIRIN 81 MG PO SCH (08:40)
[2023-07-09 08:54] LABS: Chol/HDL Ratio 2.14 Ratio; LDL Cholesterol,Calculated 35.2 mg/dL (0.0-131.0); VLDL Calculation 16.54 mg/dL (5.00-40.00)
[2023-07-09] MEDS ORDERED: lisinopriL 20 MG TAB PO SCH (09:00)
[2023-07-09] MEDS ORDERED: PANTOPRAZOLE 40 MG TABLET PO PRN (09:00)
[2023-07-09] MEDS ORDERED: ASPIRIN 325 MG TAB PO SCH (09:00)
[2023-07-09] MEDS: MIDAZOLAM 2 MG/2 ML VIAL IVP ONE ×2 (11:00→11:59)
[2023-07-09] MEDS: fentaNYL (PF) 50 MCG/ML 2 ML AMP IVP ONE ×2 (11:00→12:00)
[2023-07-09] MEDS: LIDOCAINE 1% INJ 10MG/ML (20 ML MDV) SQ ONE (11:00)
[2023-07-09] MEDS: VERAPAMIL SYRINGE (5 MG/10 ML) INTRAARTER ONE (11:03)
[2023-07-09] MEDS: HEPARIN SODIUM 1,000 UN/ML (10ML VL) IVP ONE ×2 (11:05→11:25)
[2023-07-09] MEDS ORDERED: TICAGRELOR 90 MG TAB ONE (11:26)
[2023-07-09] MEDS: TICAGRELOR 90 MG TAB PO ONE (11:33)
--- NOTE | 2023-07-09 12:16 | CC ---
CARDIAC CATHETERIZATION REPORT INDICATIONS: Acute [id number] elevation CT in a 73-year-old lady with complex and multiple medical problems including history of right-sided CVA, presented to hospital with nausea and not feeling well. Had mild troponin elevation at an outside facility and subsequently had been transferred to [facility] where her peak troponin was 12. Due to this, she was advised to undergo cardiac catheterization and had been explained of risks, benefits, and alternatives. PROCEDURE NOTE: After obtaining informed consent, left heart catheterization and coronary angiogram were performed via the right radial artery using standard Carroll catheters. The patient tolerated the procedure well without any obvious immediate complications. The patient received moderate conscious sedation. Total sedation time was 20 minutes. Right radial artery access was obtained using Seldinger technique. A 6-Syriac sheath was placed. Catheters and wires were floated into the ascending aorta under fluoroscopic guidance. FINDINGS: 1. Hemodynamics: Central aortic pressure is 110/70 mm. 2. Left Ventriculogram: Left ventriculogram is not performed. 3. Angiographic Data: a.Right Coronary Artery: Right coronary artery is a large dominant vessel that is heavily calcified, shows a long segment of stenosis involving midportion. There is also a tight stenosis more distally as it bifurcates into PDA and PLV. There are [id number] collaterals to the distal RCA. Left main coronary artery appears calcified, but is free of stenosis, divides into left anterior descending coronary artery and circumflex coronary artery. Circumflex coronary artery is a nondominant vessel. LAD shows a moderate stenosis involving midportion. CONCLUSION: Severe stenosis involving right coronary artery, which is probably a chronically occluded vessel with acute worsening given her clinical presentation and elevated troponin, Dr. Saleem, the on-call poultry hanger, will evaluate the angiographic data and will proceed with percutaneous intervention of the right coronary artery. MMODL / IJN: [id number] /
[2023-07-09] MEDS: IOPAMIDOL-370 100ML BTL INJ ONE ×2 (12:23→12:31)
[2023-07-09] MEDS: NITROGLYCERIN 1000MCG/10ML SYRINGE INTRACORON ONE (12:30)
[2023-07-09] MEDS: SODIUM CHLORIDE 0.9% 1,000 ML IV ONE (12:33)
[2023-07-09] MEDS ORDERED: fentaNYL (PF) 50 MCG/ML 2 ML AMP ONE (12:48)
[2023-07-09] MEDS: CLOPIDOGREL 75 MG TAB PO SCH (13:21)
--- NOTE | 2023-07-09 13:40 | P.CRDCN ---
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 She has a past medical history of hypertension, hyperlipidemia, previous CVA with right-sided weakness, seizure disorder, gastroesophageal reflux disease, hypothyroidism. We have been asked to evaluate the patient for non-ST elevated myocardial infarction. Patient presented to the emergency center due to increasing shortness of breath EKG sinus rhythm 66 bpm Chest x-ray: No acute findings. WC 614, hemoglobin 10.7, platelet count 139. INR 1.2. Troponin 12.3, 13.6, 14.5. Sodium 137, potassium 4.3, BUN 34 creatinine 0.72. Blood sugar 94. Lactic acid 1.3. Magnesium 1.8. AST 171, ALT 49. Triglycerides 82, cholesterol 97, LDL 35, HDL 45. Urinalysis revealed large blood. RBCs at 171. Influenza A detected. Influenza B, RSV, COVID-19 not detected. Home cardiac medications: Irbesartan 150 mg daily, Crestor 10 mg at bedtime, patient also on levothyroxine 75 mcg daily. Echocardiogram 12/07/2019 revealed EF of 55 to 60%, mild concentric left ventricular hypertrophy. Mild aortic valve sclerosis. Mild regurgitation. Mild to moderate tricuspid regurgitation. Mild to moderate pulmonary hyperte nsion. Review Of Systems: At the time of my exam: CONSTITUTIONAL: Denies fever or chills. HEENT: Denies blurred vision, vision changes, or eye pain. Denies hemoptysis CARDIOVASCULAR: Denies chest pain. Denies orthopnea. Denies PND. Denies palpitations RESPIRATORY: Denies shortness of breath. GASTROINTESTINAL: Denies abdominal pain. Denies nausea or vomiting. HEMATOLOGIC: Denies bleeding disorders. GENITOURINARY: Denies any blood in urine. SKIN: Denies pruitis. Denies rash. Physical examination: Gen: This is a 73-year-old female. She appears to be in no acute distress. VS: reviewed HEENT: Head is atraumatic, normocephalic. Pupils equal, round. Sclerae is anicteric. NECK: Supple. No JVD. LUNGS: Clear to auscultation. No wheezes or rhonchi. No intercostal retractions. HEART: Regular rate and rhythm. No murmur. ABDOMEN: Soft No tenderness. EXTREMITIES: No pedal edema. No calf tenderness. NEUROLOGICAL: Patient is awake, alert and oriented x3. Assessment: Non-ST elevated myocardial infarction RSV Hematuria on UA Hypertension Hyperlipidemia Previous CVA with right-sided weakness Seizure disorder Gastroesophageal reflux disease Hypothyroidism. Plan: Continue patient on aspirin 81 mg daily, atorvastatin 40 mg at bedtime, Plavix 75 mg daily Patient will be scheduled for cardiac catheterization today with Dr. Mick Hou Obtain 2-D echocardiogram and Doppler study to assess cardiac structure and function Further recommendations to follow based upon clinical course Thank you kindly for this consultation. Nurse practitioner note has been reviewed, I agree with documented findings and plan of care. Patient was seen and examined. Past Medical History Past Medical History: Diabetes Mellitus, Hyperlipidemia, Hypertension, P neumonia, Thyroid Disorder Additional Past Medical History / Comment(s): NIDDM type II, hypothyroid, PAD, bronchitis, sinus problems, back pain with R sided sciatica, RLS. History of Any Multi-Drug Resistant Organisms: None Reported Past Surgical History: Appendectomy, Breast Surgery, Cholecystectomy, Hernia Repair, Hysterectomy, Tubal Ligation Additional Past Surgical History / Comment(s): Aortobifemoral bypass, ventral hernia repair, colonoscopy with benign polypectomy, bilateral cataract removal with lens implants, benign L breast bx. Past Anesthesia/Blood Transfusion Reactions: No Reported Reaction, Motion Sickness Past Psychological History: Bipolar Past Alcohol Use History: None Reported Past Drug Use History: None Reported - Past Family History Father Family Medical History: Cancer Additional Family Medical History / Comment(s): Father of prostate cancer at the age of 84 yrs. Mother Additional Family Medical History / Comment(s): Mother had heart problems and di ed at the age of 64yrs. Pt states her mother never had a ID. Medications and Allergies Home Medications Medication Instructions Recorded Confirmed Type LORazepam [Ativan] 1 mg PO HS@199912/05/19 07/09/23 History Levothyroxine Sodium [Synthroid] 75 mcg PO DAILY@49912/05/19 07/09/23 History ARIPiprazole [Abilify] 2 mg PO DAILY@49907/09/23 07/09/23 History Acetaminophen Tab [Tylenol] 650 mg PO Q4H PRN 07/09/23 07/09/23 History Benzocaine 20 % Gel [Orajel] 1 applic MM Q6H PRN 07/09/23 07/09/23 History Divalproex Sprinkle [Depakote 375 mg PO HS@199907/09/23 07/09/23 History Sprinkle] Famotidine [Pepcid] 20 mg PO DAILY PRN 07/09/23 07/09/23 History HYDROcodone/APAP 5-325MG [[place] 1 tab PO Q6H PRN 07/09/23 07/09/23 History 5-325] Hydrocortisone Cream 1 applic TOPICAL BID PRN 07/09/23 07/09/23 History [Hydrocortisone 2.5% Cream] Insulin Glargine/Lixisenatide 40 units SQ DAILY@0700 07/09/23 07/09/23 History [Soliqua 100 Unit-33 Mcg/ml Pen] Insulin Lispro [humaLOG Kwikpen] 2 unit SQ TID@0700,1100,1700 07/09/23 07/09/23 History Insulin Lispro [humaLOG Kwikpen] See Protocol SQ TID@0700,1100,1700 07/09/23 07/09/23 History Irbesartan [Avapro] 150 mg PO DAILY@109907/09/23 07/09/23 History Ketoconazole 2% Cream [Nizoral 2%] 1 applic TOPICAL DAILY PRN 07/09/23 07/09/23 History Magnesium Hydroxide [Milk of 7,200 mg PO Q48H PRN 07/09/23 07/09/23 History Magnesia Concentrate] Ondansetron [Zofran] 4 mg PO Q6H PRN 07/09/23 07/09/23 History Pioglitazone [Actos] 15 mg PO DAILY@109907/09/23 07/09/23 History Polyvinyl Alcohol/Povidone [Clear 1 drop BOTH EYES BID@050,199907/09/23 07/09/23 History Eyes Natural Tears Drop] Rosuvastatin [Crestor] 10 mg PO HS@199907/09/23 07/09/23 History bisacodyL [Dulcolax] 10 mg RECTAL Q72H PRN 07/09/23 07/09/23 History buPROPion SR [Wellbutrin SR] 150 mg PO DAILY@05007/09/23 07/09/23 History metFORMIN HCL [Glucophage] 500 mg PO BID@07/09/23 07/09/23 History Allergies Allergy/AdvReac Type Severity Reaction Status Date / Time No Known Allergies Allergy Verified 07/09/23 07:42 Physical Exam Vitals: Vital Signs Temp Pulse Resp BP Pulse Ox 07/09/23 10:14 99.3 F 64 18 99/63 93 L 07/09/23 09:01 99.0 F 62 20 116/50 95 07/09/23 08:41 96 07/09/23 07:45 99.2 F 64 17 100/50 94 L 07/09/23 06:00 63 17 111/51 97 07/09/23 04:24 61 13 111/48 95 07/09/23 03:19 99/48 07/09/23 03:05 61 19 97/48 100 07/09/23 01:19 99.2 F 69 22 101/43 94 L 07/09/23 00:00 70 21 97/49 95 07/08/23 21:37 100.3 F H 71 18 95/51 96 Intake and Output 07/08/23 07/09/23 07/09/23 22:59 06:59 14:59 Intake Total 23.515 600 Output Total 300 Balance 23.515 300 Intake: IV 600 Intake, IV Titration 23.515 Amount Heparin Sod,Pork in 0.45% 23.515 NaCl 25,000 unit In 0.45 % NaCl 1 250ml.bag @ 12 UNITS/KG/HR 9.798 mls/hr IV .Q24H [facility] Rx#: [id number] Output: Urine 300 Other: Weight 81.647 kg Results 07/09/23 04:15 07/08/23 21:56 Cardiac Enzymes 07/08/23 07/08/23 07/08/23 Range/Units 21:56 21:56 23:03 AST 171 H (14-36) U/L Troponin I 12.300 H* 13.600 H* (0.000-0.034) ng/mL 07/09/23 Range/Units 01:01 AST (14-36) U/L Troponin I 14.500 H* (0.000-0.034) ng/mL Coagulation 07/08/23 07/09/23 Range/Units 21:56 04:15 PT 16.6 H 12.9 H (10.0-12.5) sec APTT >200.0 H* 52.2 H (22.0-30.0) sec Lipids 07/09/23 Range/Units 04:15 Triglycerides 82.70 (0.00-149.00) mg/dL Cholesterol 97.00 (0.00-200.00) mg/dL HDL Cholesterol 45.30 (40.00-60.00) mg/dL Cholesterol/HDL Ratio 2.14 Ratio CBC 07/08/23 07/09/23 Range/Units 21:56 04:15 WBC 7.8 6.4 (3.8-10.6) k/uL RBC 3.66 L 3.35 L (3.80-5.40) m/uL Hgb 11.8 10.7 L (11.4-16.0) gm/dL Hct 35.4 32.4 L (34.0-46.0) % Plt Count 137 L 139 L (150-450) k/uL Comprehensive Metabolic Panel 07/08/23 Range/Units 21:56 Sodium 137 (137-145) mmol/L Potassium 4.3 (3.5-5.1) mmol/L Chloride 101 (98-107) mmol/L Carbon Dioxide 28 (22-30) mmol/L BUN 34 H (7-17) mg/dL Creatinine 0.72 (0.52-1.04) mg/dL Glucose 94 (74-99) mg/dL Calcium 8.5 (8.4-10.2) mg/dL AST 171 H (14-36) U/L ALT 49 H (4-34) U/L Alkaline Phosphatase 56 (38-126) U/L Total Protein 6.4 (6.3-8.2) g/dL Albumin 3.6 (3.5-5.0) g/dL Current Medications Generic Name Dose Route Start Last Admin Trade Name Freq PRN Reason Stop Dose Admin Acetaminophen 650 mg 07/08/23 22:42 07/09/23 00:21 Acetaminophen Tab 325 Mg Tab PO 650 mg Q6HR PRN Administration Fever and/ or Pain Alprazolam 0.25 mg 07/09/23 07:43 Alprazolam 0.25 Mg Tab PO Q6HR PRN Mild Anxiety Alprazolam 0.5 mg 07/09/23 07:43 Alprazolam 0.5 Mg Tab PO Q6HR PRN Moderate Anxiety Aspirin 81 mg 07/09/23 09:00 07/09/23 08:40 Aspirin 81 Mg PO Not Given BID [facility] Atorvastatin Calcium 40 mg 07/09/23 21:00 Atorvastatin 40 Mg Tab PO HS [facility] Clopidogrel Bisulfate 75 mg 07/09/23 09:00 Clopidogrel 75 Mg Tab PO DAILY [facility] Sodium Chloride 1,000 mls @ 100 mls/hr 07/08/23 22:45 07/09/23 07:54 Saline 0.9% IV Not Given .Q10H [facility] Heparin Sodium (Porcine) 10, 1,001 mls @ 999 mls/hr 07/10/23 07:00 000 unit/ Sodium Chloride IRRIGATION 07/10/23 23:00 ONCE PRN INTRA-OP Heparin Sodium (Porcine) 2,500 250.5 mls @ 250 mls/hr 07/10/23 07:00 unit/ Sodium Chloride IRRIGATION 07/10/23 23:00 ONCE PRN INTRA-OP Nitroglycerin 0.4 mg 07/08/23 22:39 Nitroglycerin Sl Tabs 0.4 Mg Tab SUBLINGUAL Q5M PRN Chest Pain Nitroglycerin 0.4 mg 07/09/23 07:43 Nitroglycerin Sl Tabs 0.4 Mg Tab SUBLINGUAL Q5M PRN Chest Pain Intake and Output 07/08/23 07/09/23 07/09/23 22:59 06:59 14:59 Intake Total 23.515 600 Output Total 300 Balance 23.515 300 Intake: IV 600 Intake, IV Titration 23.515 Amount Heparin Sod,Pork in 0.45% 23.515 NaCl 25,000 unit In 0.45 % NaCl 1 250ml.bag @ 12 UNITS/KG/HR 9.798 mls/hr IV .Q24H [facility] Rx#: [id number] Output: Urine 300 Other: Weight 81.647 kg 07/09/23 04:15 07/08/23 21:56
--- NOTE | 2023-07-09 16:14 | P.PRCINT ---
Percutaneous Coronary Int. - Percutaneous Coronary Intervention Percutaneous Coronary Intervention: PROCEDURES PERFORMED: Right coronary angiography, CSI rotational atherectomy RCA, Shockwave lithotripsy angioplasty RCA with a 3.0 mm balloon, PCI proximal to mid RCA with overlapping 3.0 x 33 mm and 3.0 x 23 mm Xience TAJ postdilated with a 3.0 noncompliant balloon INDICATION: Non-STEMI PROCEDURE: After the risks, benefits and alternatives of the above mentioned procedure explained in detail with the patient, informed consent was obtained. Patient had already been taken to the catheterization lab and prepped and draped in usual fashion. A 6-[place] sheath had already been placed in the right radial artery The decision was made to perform PCI of the RCA. Heparin was given. A 6 [place] AL 1.0 guide was used to engage the RCA. A 0.014 BMW wire was advanced in the distal RCA. Initial attempts at destiney wire with a whisper wire were unsuccessful. Therefore a guide liner was used for additional support. Predilation was attempted with a 2.0 x 12 mm balloon however unable to pass past the proximal lesion at the bandage. Therefore predilation was performed with a 1.5 x 6 mm balloon and able to pass this to the mid to distal RCA. Next balloon angioplasty was attempted with a 2.0 x 8 mm noncompliant balloon however again unable to pass past the proximal lesion. Given extensive calcification decision was made to perform CSI atherectomy. Using a Corsair catheter, the BMW wire was exchanged for a 0.014 Viper wire. Next CSI rotational atherectomy was performed with approximately 6 runs at low speed. Next balloon angioplasty was performed with a 2.5 x 12 mm noncompliant balloon. Next shockwave lithotripsy was performed with a 3.0 mm balloon x 8 runs. Next a 3.0 x 23 mm Xience TAJ was placed in the mid to distal RCA and additional 3.0 x 33 mm Xience TAJ more proximally. The stent was postdilated with a 3.0 noncompliant balloon. There was diffuse disease throughout the entire artery and more distal 30% stenosis felt best treated medically. The wire was pulled and final angiograms were performed. Preintervention there was 99% heavily calcified long stenosis with SHILPA I flow and postintervention there was less than 10% stenosis with SHILPA-3 flow The right radial sheath was removed and a TR band was placed with hemostasis achieved. The patient tolerated the procedure well. Patient was transported back to the post catheterization holding area in stable condition. Conscious Sedation: Patient was monitored under the direct supervision of myself for conscious sedation using Versed and fentanyl for a total duration of 80 minutes HEMODYNAMICS: Aortic: 131/78 SELECTIVE CORONARY ARTERIOGRAPHY: LEFT MAIN: Not imaged, see separate report LEFT ANTERIOR DESCENDING CORONARY ARTERY: Not imaged, see separate report, collaterals to the RCA LEFT CIRCUMFLEX CORONARY ARTERY: Not imaged, see separate report RIGHT CORONARY ARTERY: The right coronary artery is a large caliber vessel which gives off a PDA and PLV branch and is the dominant vessel. There is diffuse heavy calcification with a 99% stenosis, long lesion from the proximal to mid RCA. FINAL IMPRESSION: 1. CAD as described above including 99% mid RCA stenosis 2. S/p CSI rotational atherectomy RCA, Shockwave lithotripsy angioplasty RCA with a 3.0 mm balloon, PCI proximal to mid RCA with overlapping 3.0 x 33 mm and 3.0 x 23 mm Xience TAJ postdilated with a 3.0 noncompliant balloon PLAN: 1. Aggressive risk factor modification per most recent ACC/AHA guidelines. 2. Continue dual antiplatelets with aspirin and Brillinta for 12 months.
[2023-07-09] MEDS ORDERED: RX INFO: IV CONTRAST WAS GIVEN 1 EACH MISC MISCELLANE PRN (16:15)
[2023-07-09] MEDS ORDERED: MAG HYDROX/AL HYDROX/SIMETH 30 ML CUP PO PRN (16:15)
[2023-07-09] MEDS ORDERED: ATROPINE SULFATE 0.1 MG/ML 10ML SYRINGE IV PRN (16:15)
[2023-07-09] MEDS ORDERED: ZOLPIDEM 5 MG TAB PO PRN (16:15)
[2023-07-09] MEDS: SODIUM CHLORIDE 0.9% 1,000 ML in EMPTY BAG 1 BAG IV SCH (16:41)
[2023-07-09] MEDS: LOSARTAN 25 MG TAB PO SCH (16:41)
--- NOTE | 2023-07-09 16:54 | P.HPIM ---
History of Present Illness H&P Date: 07/09/23 Felipa Lubin, is a 73-year-old female who presented to [facility] emergency room with a chief complaint of chest pain, patient was transferred from the [facility] emergency room. She was evaluated in the emergency room vital examination on presentation revealed a temperature of 100.3 pulse 71 respiration 18 and blood pressure 95/51 pulse ox 96% on 3 L nasal cannula Laboratory data reveals a white blood count of 7.8 hemoglobin 11.8 platelet count 137 BUN 34 creatinine 0.72 troponin level 12.3 influenza A PCR was positive Testing in the emergency room revealed EKG revealed sinus rhythm with T-wave abnormalities in the lateral leads. Chest x-ray revealed no acute findings in the chest Patient was admitted to medical floor for further evaluation and treatment. She was started on IV heparin, cardiology consultation was requested Past Medical History Past Medical History: Diabetes Mellitus, Hyperlipidemia, Hypertension, Pneu monia, Thyroid Disorder Additional Past Medical History / Comment(s): NIDDM type II, hypothyroid, PAD, bronchitis, sinus problems, back pain with R sided sciatica, RLS. History of Any Multi-Drug Resistant Organisms: None Reported Past Surgical History: Appendectomy, Breast Surgery, Cholecystectomy, Hernia Repair, Hysterectomy, Tubal Ligation Additional Past Surgical History / Comment(s): Aortobifemoral bypass, ventral hernia repair, colonoscopy with benign polypectomy, bilateral cataract removal with lens implants, benign L breast bx. Past Anesthesia/Blood Transfusion Reactions: No Reported Reaction, Motion Sickness Past Psychological History: Bipolar Past Alcohol Use History: None Reported Past Drug Use History: None Reported - Past Family History Father Family Medical History: Cancer Additional Family Medical History / Comment(s): Father of prostate cancer at the age of 84 yrs. Mother Additional Family Medical History / Comment(s): Mother had heart problems and at the age of 64yrs. Pt states her mother never had a WI. Medications and Allergies Home Medications Medication Instructions Recorded Confirmed Type LORazepam [Ativan] 1 mg PO HS@199912/05/19 07/09/23 History Levothyroxine Sodium [Synthroid] 75 mcg PO DAILY@49912/05/19 07/09/23 History ARIPiprazole [Abilify] 2 mg PO DAILY@49907/09/23 07/09/23 History Acetaminophen Tab [Tylenol] 650 mg PO Q4H PRN 07/09/23 07/09/23 History Benzocaine 20 % Gel [Orajel] 1 applic MM Q6H PRN 07/09/23 07/09/23 History Divalproex Sprinkle [Depakote 375 mg PO HS@199907/09/23 07/09/23 History Sprinkle] Famotidine [Pepcid] 20 mg PO DAILY PRN 07/09/23 07/09/23 History HYDROcodone/APAP 5-325MG [[place] 1 tab PO Q6H PRN 07/09/23 07/09/23 History 5-325] Hydrocortisone Cream 1 applic TOPICAL BID PRN 07/09/23 07/09/23 History [Hydrocortisone 2.5% Cream] Insulin Glargine/Lixisenatide 40 units SQ DAILY@0700 07/09/23 07/09/23 History [Soliqua 100 Unit-33 Mcg/ml Pen] Insulin Lispro [humaLOG Kwikpen] 2 unit SQ TID@0700,1100,1700 07/09/23 07/09/23 History Insulin Lispro [humaLOG Kwikpen] See Protocol SQ TID@0700,1100,1700 07/09/23 07/09/23 History Irbesartan [Avapro] 150 mg PO DAILY@109907/09/23 07/09/23 History Ketoconazole 2% Cream [Nizoral 2%] 1 applic TOPICAL DAILY PRN 07/09/23 07/09/23 History Magnesium Hydroxide [Milk of 7,200 mg PO Q48H PRN 07/09/23 07/09/23 History Magnesia Concentrate] Ondansetron [Zofran] 4 mg PO Q6H PRN 07/09/23 07/09/23 History Pioglitazone [Actos] 15 mg PO DAILY@109907/09/23 07/09/23 History Polyvinyl Alcohol/Povidone [Clear 1 drop BOTH EYES BID@050,199907/09/23 History Eyes Natural Tears Drop] Rosuvastatin [Crestor] 10 mg PO HS@199907/09/23 07/09/23 History bisacodyL [Dulcolax] 10 mg RECTAL Q72H PRN 07/09/23 07/09/23 History buPROPion SR [Wellbutrin SR] 150 mg PO DAILY@05007/09/23 07/09/23 History metFORMIN HCL [Glucophage] 500 mg PO BID@07/09/23 07/09/23 History Allergies Allergy/AdvReac Type Severity Reaction Status Date / Time No Known Allergies Allergy Verified 07/09/23 07:42 Physical Exam Vitals: Vital Signs Temp Pulse Pulse Resp BP BP Pulse Ox 07/09/23 13:07 62 20 101/60 95 07/09/23 10:14 99.3 F 64 18 99/63 93 L 07/09/23 09:01 99.0 F 62 20 116/50 95 07/09/23 08:41 96 07/09/23 07:45 99.2 F 64 17 100/50 94 L 07/09/23 06:00 63 17 111/51 97 07/09/23 04:24 61 13 111/48 95 07/09/23 03:19 99/48 07/09/23 03:05 61 19 97/48 100 07/09/23 01:19 99.2 F 69 22 101/43 94 L 07/09/23 00:00 70 21 97/49 95 07/08/23 21:37 100.3 F H 71 18 95/51 96 Intake and Output 07/08/23 07/09/23 07/09/23 22:59 06:59 14:59 Intake Total 23.515 600 Output Total 300 Balance 23.515 300 Intake: IV 600 Intake, IV Titration 23.515 Amount Heparin Sod,Pork in 0.45% 23.515 NaCl 25,000 unit In 0.45 % NaCl 1 250ml.bag @ 12 UNITS/KG/HR 9.798 mls/hr IV .Q24H [facility] Rx#: [id number] Output: Urine 300 Other: Weight 81.647 kg 81.647 kg In general patient is alert and oriented x -3 in no distress HEENT head normocephalic and atraumatic Neck is supple no JVD no goiter no lymphadenopathy no carotid bruit Chest examination is clear to auscultation no crackles no wheezing Cardiac exam reveals regular heart sounds S1 and S2 no gallops no murmurs Abdomen is soft nontender no organomegaly with normal bowel sounds Extremity exam reveals no edema no cyanosis or clubbing Neurological examination reveals no gross focal deficits Results CBC & Chem 7: 07/09/23 04:15 07/08/23 21:56 Labs: Abnormal Lab Results - Last 24 Hours (Table) 07/08/23 07/08/23 07/08/23 Range/Units 21:56 21:56 21:56 RBC 3.66 L (3.80-5.40) m/uL Hgb (11.4-16.0) gm/dL Hct (34.0-46.0) % Plt Count 137 L (150-450) k/uL Lymphocytes # 0.9 L (1.0-4.8) k/uL PT 16.6 H (10.0-12.5) sec INR 1.6 H (<1.2) APTT >200.0 H* (22.0-30.0) sec BUN (7-17) mg/dL AST (14-36) U/L ALT (4-34) U/L Troponin I (0.000-0.034) ng/mL Urine Appearance Cloudy H (Clear) Urine Protein 1+ H (Negative) Urine Ketones 1+ H (Negative) Urine Blood Large H (Negative) Urine RBC 171 H (0-5) /hpf Hyaline Casts 8 H (0-2) /lpf Urine Mucus Many H (None) /hpf Influenza Type A (PCR) (Not Detectd) 07/08/23 07/08/23 07/08/23 Range/Units 21:56 21:56 23:03 RBC (3.80-5.40) m/uL Hgb (11.4-16.0) gm/dL Hct (34.0-46.0) % Plt Count (150-450) k/uL Lymphocytes # (1.0-4.8) k/uL PT (10.0-12.5) sec INR (<1.2) APTT (22.0-30.0) sec BUN 34 H (7-17) mg/dL AST 171 H (14-36) U/L ALT 49 H (4-34) U/L Troponin I 12.300 H* 13.600 H* (0.000-0.034) ng/mL Urine Appearance (Clear) Urine Protein (Negative) Urine Ketones (Negative) Urine Blood (Negative) Urine RBC (0-5) /hpf Hyaline Casts (0-2) /lpf Urine Mucus (None) /hpf Influenza Type A (PCR) (Not Detectd) 07/09/23 07/09/23 07/09/23 Range/Units 00:09 01:01 04:15 RBC (3.80-5.40) m/uL Hgb (11.4-16.0) gm/dL Hct (34.0-46.0) % Plt Count (150-450) k/uL Lymphocytes # (1.0-4.8) k/uL PT 12.9 H (10.0-12.5) sec INR 1.2 H (<1.2) APTT 52.2 H (22.0-30.0) sec BUN (7-17) mg/dL AST (14-36) U/L ALT (4-34) U/L Troponin I 14.500 H* (0.000-0.034) ng/mL Urine Appearance (Clear) Urine Protein (Negative) Urine Ketones (Negative) Urine Blood (Negative) Urine RBC (0-5) /hpf Hyaline Casts (0-2) /lpf Urine Mucus (None) /hpf Influenza Type A (PCR) Detected A (Not Detectd) 07/09/23 Range/Units 04:15 RBC 3.35 L (3.80-5.40) m/uL Hgb 10.7 L (11.4-16.0) gm/dL Hct 32.4 L (34.0-46.0) % Plt Count 139 L (150-450) k/uL Lymphocytes # (1.0-4.8) k/uL PT (10.0-12.5) sec INR (<1.2) APTT (22.0-30.0) sec BUN (7-17) mg/dL AST (14-36) U/L ALT (4-34) U/L Troponin I (0.000-0.034) ng/mL Urine Appearance (Clear) Urine Protein (Negative) Urine Ketones (Negative) Urine Blood (Negative) Urine RBC (0-5) /hpf Hyaline Casts (0-2) /lpf Urine Mucus (None) /hpf Influenza Type A (PCR) (Not Detectd) Thrombosis Risk Factor Assmnt - Choose All That Apply Any of the Below Risk Factors Present?: Yes Each Factor Represents 1 point: Obesity (BMI >25) Other Risk Factors: Yes Each Risk Factor Represents 2 Points: Age 61-74 years Other congenital or acquired thrombophilia - If yes, enter type in comment: No Thrombosis Risk Factor Assessment Total Risk Factor Score: 3 Thrombosis Risk Factor Assessment Level: Moderate Risk Assessment and Plan Plan: Non-ST elevated myocardial infarction Acute influenza A infection Underlying history of hypertension Underlying history of hyperlipidemia Previous history of stroke with right sided weakness Underlying history of seizure disorder Underlying history of hypothyroidism Underlying history of gastroesophageal reflux disease At this time patient was started on IV heparin Home medications reviewed and reordered Cardiology consultation requested Tamiflu was added to her medication regimen Will follow closely
[2023-07-09] MEDS ORDERED: LORazepam 1 MG TAB PO SCH (21:00)
[2023-07-09] MEDS ORDERED: DIVALPROEX ER 250 MG TAB.ER.24H PO SCH (21:00)
[2023-07-09] MEDS: ATORVASTATIN 40 MG TAB PO SCH (21:35)
[2023-07-09] MEDS: METOPROLOL TARTRATE 12.5 MG TAB PO SCH (21:35)
[2023-07-09] MEDS: OSELTAMIVIR 60 MG/10 ML ORAL SYRINGE PO SCH (21:35)
[2023-07-09] MEDS: TICAGRELOR 90 MG TAB PO SCH (21:35)
[2023-07-09] MEDS: ONDANSETRON 4 MG/2 ML VIAL IVP PRN (22:29)
[2023-07-10] MEDS ORDERED: HEPARIN SODIUM,PORCINE (1 ML) 2,500 UNIT in SODIUM CHLORIDE 0.9% 250 ML IRRIGATION PRN (07:00)
[2023-07-10] MEDS ORDERED: HEPARIN SODIUM,PORCINE 10,000 UNIT in SODIUM CHLORIDE 0.9% 1,000 ML IRRIGATION PRN (07:00)
[2023-07-10] MEDS: ASPIRIN 81 MG PO SCH (08:56)
[2023-07-10 09:40] LABS: African American GFR (CKD) >90 (>60 ml/min/1.73 sqM); Non-African American GFR(CKD) >90 (>60 ml/min/1.73 sqM)
[2023-07-10 11:48] LABS: Glucose,Whole Blood 130 mg/dL (70-110)
--- NOTE | 2023-07-10 13:18 | P.PN ---
Subjective Progress Note Date: 07/10/23 Reason for Consult (text): Non-ST elevated myocardial infarction History of present illness: History of present illness: This is a 73-ann-marie-old female patient with no previous cardiac history and does not follow with a gm mobile. She has a past medical history of hypertension, hyperlipidemia, previous CVA with right-sided weakness, seizure disorder, gastroesophageal reflux disease, hypothyroidism. We have been asked to evaluate the patient for non-ST elevated myocardial infarction. Patient presented to the emergency center due to increasing shortness of breath EKG sinus rhythm 66 bpm Chest x-ray: No acute findings. WC 614, hemoglobin 10.7, platelet count 139. INR 1.2. Troponin 12.3, 13.6, 14.5. Sodium 137, potassium 4.3, BUN 34 creatinine 0.72. Blood sugar 94. Lactic acid 1.3. Magnesium 1.8. AST 171, ALT 49. Triglycerides 82, c holesterol 97, LDL 35, HDL 45. Urinalysis revealed large blood. RBCs at 171. Influenza A detected. Influenza B, RSV, COVID-19 not detected. Home cardiac medications: Irbesartan 150 mg daily, Crestor 10 mg at bedtime, patient also on levothyroxine 75 mcg daily. Echocardiogram 12/07/2019 revealed EF of 55 to 60%, mild concentric left ventricular hypertrophy. Mild aortic valve sclerosis. Mild regurgitation. Mild to moderate tricuspid regurgitation. Mild to moderate pulmonary hypertension. 07/10 Yesterday, patient underwent cardiac catheterization with Dr. Mick Hou which revealed right coronary artery is large dominant vessel with heavy calcification and long segment of stenosis involving the midportion. Tight stenosis more distally as it bifurcates into PDA and PLV. There are [id number] collaterals to the distal RCA. Left main coronary artery appears calcified but free of stenosis, divides into left anterior descending and circumflex. Circumflex coronary artery is nondominant. LAD shows moderate stenosis involving midportion. Patient subsequently underwent atherectomy RCA, shockwave lithotripsy angioplasty with balloon and PCI proximal to mid RCA with overlapping stents. Plan for aggressive risk factor modification. Patient started on Brilinta and continued on aspirin. Patient denies having any chest pain or shortness of breath at this time. Breathing is easier. Blood pressure 95/46, heart rate in the 70s, pulse ox 96% on 2 L nasal cannula. Repeat creatinine 0.58. Repeat EKG reviewed. Physical examination: Gen: This is a 73-year-old female. She appears to be in no acute distress. VS: reviewed HEENT: Head is atraumatic, normocephalic. Pupils equal, round. Sclerae is anicteric. NECK: Supple. No JVD. LUNGS: Clear to auscultation. No wheezes or rhonchi. No intercostal retractions. HEART: Regular rate and rhythm. No murmur. ABDOMEN: Soft No tenderness. EXTREMITIES: No pedal edema. No calf tenderness. NEUROLOGICAL: Patient is awake, alert and oriented x3. Assessment: Non-ST elevated myocardial infarction status post cardiac catheterization and stent RCA x 2 RSV Hematuria on UA Hypertension Hyperlipidemia Previous CVA with right-sided weakness Seizure disorder Gastroesophageal reflux disease Hypothyroidism. Plan: Continue patient on aspirin 81 mg daily, atorvastatin 40 mg at bedtime, Plavix 75 mg daily Patient started on Brilinta 90 mg twice daily Obtain 2-D echocardiogram and Doppler study to assess cardiac structure and f unction Further recommendations to follow based upon clinical course Nurse practitioner note has been reviewed, I agree with documented findings and plan of care. Patient was seen and examined. Objective - Vital Signs Vital signs: Vital Signs Temp 99.2 F 07/10/23 04:00 Pulse 74 07/10/23 04:00 Resp 18 07/10/23 04:00 BP 133/66 07/10/23 04:00 Pulse Ox 96 07/10/23 04:00 FiO2 Intake & Output 07/09/23 07/10/23 07/10/23 18:59 06:59 18:59 Intake Total 600 120 Output Total 500 401 Balance 100 -281 Weight 81.647 kg Intake: IV 600 Oral 120 Output: Urine 500 400 Stool 1 Other: Voiding Method Indwelling Catheter Indwelling Catheter - Labs CBC & Chem 7: 07/09/23 04:15 07/10/23 07:26 Labs: Microbiology - Last 24 Hours (Table) 07/08/23 22:15 Blood Culture - Preliminary Blood
[2023-07-10 16:14] LABS: Glucose,Whole Blood 119 mg/dL (70-110)
[2023-07-10] MEDS ORDERED: HYDROcodone/APAP 5-325MG 1 EACH TAB PO PRN (16:35)
[2023-07-10] MEDS ORDERED: FAMOTIDINE 20 MG TAB PO PRN (16:35)
[2023-07-10] MEDS ORDERED: DEXTROSE 50% SYRINGE 50 ML IVP PRN ×2 (16:48)
--- NOTE | 2023-07-10 16:53 | P.PN ---
Subjective Progress Note Date: 07/10/23 Felipa Lubin, is a 73-year-old female who presented to [facility] emergency room with a chief complaint of chest pain, patient was transferred from the [facility] emergency room. She was evaluated in the emergency room vital examination on presentation revealed a temperature of 100.3 pulse 71 respiration 18 and blood pressure 95/51 pulse ox 96% on 3 L nasal cannula Laboratory data reveals a white blood count of 7.8 hemoglobin 11.8 platelet count 137 BUN 34 creatinine 0.72 troponin level 12.3 influenza A PCR was positive Testing in the emergency room revealed EKG revealed sinus rhythm with T-wave abnormalities in the lateral leads. Chest x-ray revealed no acute findings in the chest Patient was admitted to medical floor for further evaluation and treatment. She was started on IV heparin, cardiology consultation was requested On 07/10/2023 patient was seen and examined on the medical floor she is alert and oriented 3 in no apparent distress, she is complaining of nausea otherwise she denies any complaints, there is no fever or chills no headache or dizziness no chest pain no shortness of breath no cough, no abdominal pain no diarrhea no blood in the stools no burning with urination no frequency or urgency and no hematuria. Objective - Vital Signs Vital signs: Vital Signs Temp 98.2 F 07/10/23 12:00 Pulse 74 07/10/23 12:00 Resp 17 07/10/23 12:00 BP 95/46 07/10/23 12:00 Pulse Ox 96 07/10/23 12:00 FiO2 Intake & Output 07/09/23 07/10/23 07/10/23 18:59 06:59 18:59 Intake Total 600 120 Output Total 500 401 250 Balance 100 -281 -250 Weight 81.647 kg Intake: IV 600 Oral 120 Output: Urine 500 400 250 Uretheral (Sy) 125 Stool 1 Other: Voiding Method Indwelling Catheter Indwelling Catheter # Bowel Movements 1 - Exam In general patient is alert and oriented x 3 in no distress HEENT head normocephalic and atraumatic Neck is supple no JVD no goiter no lymphadenopathy no carotid bruit Chest examination is clear to auscultation no crackles no wheezing Cardiac exam reveals regular heart sounds S1 and S2 no gallops no murmurs Abdomen is soft nontender no organomegaly with normal bowel sounds Extremity exam reveals no edema no cyanosis or clubbing Neurological examination reveals no gross focal deficits - Labs CBC & Chem 7: 07/09/23 04:15 07/10/23 07:26 Labs: Abnormal Lab Results - Last 24 Hours (Table) 07/10/23 Range/Units 11:47 POC Glucose (mg/dL) 130 H (70-110) mg/dL Microbiology - Last 24 Hours (Table) 07/08/23 22:15 Blood Culture - Preliminary Blood Assessment and Plan Plan: Non-ST elevated myocardial infarction Acute influenza A infection Underlying history of hypertension Underlying history of hyperlipidemia Previous history of stroke with right sided weakness Underlying history of seizure disorder Underlying history of hypothyroidism Underlying history of gastroesophageal reflux disease At this time patient was started on IV heparin Home medications reviewed and reordered Cardiology consultation requested Tamiflu was added to her medication regimen Will follow closely
[2023-07-10] MEDS: INSULIN ASPART (NovoLOG) 100 UNIT/ML VIAL SQ SCH (17:30)
[2023-07-10 17:53] LABS: Basophils % (A) 0 %; Eosinophils % (A) 0 %; HCT 30.4 % (34.0-46.0); HGB 10.1 gm/dL (11.4-16.0); Lymphocytes # (A) 1.2 k/uL (1.0-4.8); Lymphocytes % (A) 28 %; MCH 32.2 pg (25.0-35.0); MCHC 33.2 g/dL (31.0-37.0); MCV 96.9 fL (80.0-100.0); Mean Platelet Volume 10.2; Monocytes # (A) 0.4 k/uL (0-1.0); Monocytes % (A) 9 %; Neutrophils # (A) 2.7 k/uL (1.3-7.7); Neutrophils % (A) 60 %; Platelet Count 119 k/uL (150-450); RBC 3.13 m/uL (3.80-5.40); RDW 13.7 % (11.5-15.5); WBC 4.5 k/uL (3.8-10.6)
[2023-07-10 18:02] LABS: ALT 43 U/L (4-34); AST 149 U/L (14-36); African American GFR (CKD) >90 (>60 ml/min/1.73 sqM); Albumin 3.1 g/dL (3.5-5.0); Alkaline Phosphatase 59 U/L (38-126); Anion Gap 5 mmol/L; Blood Urea Nitrogen 25 mg/dL (7-17); Calcium 8.1 mg/dL (8.4-10.2); Carbon Dioxide 28 mmol/L (22-30); Chloride 104 mmol/L (98-107); Glucose 88 mg/dL (74-99); Non-African American GFR(CKD) 86 (>60 ml/min/1.73 sqM); Potassium 3.7 mmol/L (3.5-5.1); Sodium 137 mmol/L (137-145); Total Bilirubin 0.4 mg/dL (0.2-1.3); Total Protein 5.6 g/dL (6.3-8.2)
[2023-07-10 19:55] LABS: Glucose,Whole Blood 88 mg/dL (70-110)
[2023-07-10] MEDS: ARTIFICIAL TEARS-HYPROMELLOSE DROPS 15 ML BTL BOTH EYES SCH (22:22)
[2023-07-10] MEDS: DIVALPROEX SPRINKLE 125 MG CAP.SPRINK PO SCH (22:22)
[2023-07-11] MEDS: buPROPion SR 150 MG TABLET.ER PO SCH (04:52)
[2023-07-11] MEDS: ARIPiprazole 2 MG TAB PO SCH (04:52)
[2023-07-11 06:12] LABS: Glucose,Whole Blood 88 mg/dL (70-110)
[2023-07-11] MEDS: NON FORMULARY DRUG (Insulin Glargine/Lixisenatide [Soliqua 100 Unit-33 Mcg/Ml Pen] 3 ML In SQ SCH (06:25)
--- NOTE | 2023-07-11 09:11 | P.PN ---
Subjective Progress Note Date: 07/11/23 Felipa Lubin, is a 73-year-old female who presented to [facility] emergency room with a chief complaint of chest pain, patient was transferred from the [facility] emergency room. She was evaluated in the emergency room vital examination on presentation revealed a temperature of 100.3 pulse 71 respiration 18 and blood pressure 95/51 pulse ox 96% on 3 L nasal cannula Laboratory data reveals a white blood count of 7.8 hemoglobin 11.8 platelet count 137 BUN 34 creatinine 0.72 troponin level 12.3 influenza A PCR was positive Testing in the emergency room revealed EKG revealed sinus rhythm with T-wave abnormalities in the lateral leads. Chest x-ray revealed no acute findings in the chest Patient was admitted to medical floor for further evaluation and treatment. She was started on IV heparin, cardiology consultation was requested On 07/10/2023 patient was seen and examined on the medical floor she is alert and oriented 3 in no apparent distress, she is complaining of nausea otherwise she denies any complaints, there is no fever or chills no headache or dizziness no chest pain no shortness of breath no cough, no abdominal pain no diarrhea no blood in the stools no burning with urination no frequency or urgency and no hematuria. 07/11/2023 for patients alert and oriented 3. Patient underwent cardiac catheterization receiving 2 stents to the RCA. Repeat echocardiogram ordered. Patient remains on Tamiflu. Current vital signs temp 98, heart rate 57, respi ratory rate 18, blood pressure 119/60 fourth pulse ox 95% on 2 L. Patient denies chest pain or shortness breath. Patient denies nausea vomiting or diarrhea. Patient denies any urinary burning or frequency Objective - Vital Signs Vital signs: Vital Signs Temp 98 F 07/11/23 04:00 Pulse 130 H 07/10/23 18:35 Resp 18 07/11/23 04:00 BP 119/64 07/11/23 04:00 Pulse Ox 95 07/11/23 04:00 FiO2 Intake & Output 07/10/23 07/11/23 07/11/23 18:59 06:59 18:59 Intake Total 118 Output Total 300 250 Balance -182 -250 Weight 81.647 kg Intake: Oral 118 Output: Urine 300 250 Uretheral (Sy) 125 Other: Voiding Method External Catheter # Voids 1 # Bowel Movements 1 1 - Exam In general patient is alert and oriented x 3 in no distress HEENT head normocephalic and atraumatic Neck is supple no JVD no goiter no lymphadenopathy no carotid bruit Chest examination is clear to auscultation no crackles no wheezing Cardiac exam reveals regular heart sounds S1 and S2 no gallops no murmurs Abdomen is soft nontender no organomegaly with normal bowel sounds Extremity exam reveals no edema no cyanosis or clubbing Neurological examination reveals no gross focal deficits - Labs CBC & Chem 7: 07/10/23 17:40 07/10/23 17:40 Labs: Abnormal Lab Results - Last 24 Hours (Table) 07/10/23 07/10/23 07/10/23 Range/Units 11:47 16:13 17:40 RBC (3.80-5.40) m/uL Hgb (11.4-16.0) gm/dL Hct (34.0-46.0) % Plt Count (150-450) k/uL BUN 25 H (7-17) mg/dL POC Glucose (mg/dL) 130 H 119 H (70-110) mg/dL Calcium 8.1 L (8.4-10.2) mg/dL AST 149 H (14-36) U/L ALT 43 H (4-34) U/L Total Protein 5.6 L (6.3-8.2) g/dL Albumin 3.1 L (3.5-5.0) g/dL 07/10/23 Range/Units 17:40 RBC 3.13 L (3.80-5.40) m/uL Hgb 10.1 L (11.4-16.0) gm/dL Hct 30.4 L (34.0-46.0) % Plt Count 119 L (150-450) k/uL BUN (7-17) mg/dL POC Glucose (mg/dL) (70-110) mg/dL Calcium (8.4-10.2) mg/dL AST (14-36) U/L ALT (4-34) U/L Total Protein (6.3-8.2) g/dL Albumin (3.5-5.0) g/dL Microbiology - Last 24 Hours (Table) 07/08/23 22:15 Blood Culture - Preliminary Blood Assessment and Plan Plan: Non-ST elevated myocardial infarction. Status post cardiac cath with stents RCA Acute influenza A infection Underlying history of hypertension Underlying history of hyperlipidemia Previous history of stroke with right sided weakness Underlying history of seizure disorder Underlying history of hypothyroidism Underlying history of gastroesophageal reflux disease At this time patient was started on IV heparin Home medications reviewed and reordered Cardiology consultation requested Tamiflu was added to her medication regimen Will follow closely
[2023-07-11 09:50] LABS: Basophils % (A) 0 %; Eosinophils % (A) 0 %; HCT 28.5 % (34.0-46.0); HGB 9.4 gm/dL (11.4-16.0); Lymphocytes # (A) 1.3 k/uL (1.0-4.8); Lymphocytes % (A) 34 %; MCH 31.7 pg (25.0-35.0); MCV 96.2 fL (80.0-100.0); Mean Platelet Volume 9.4; Monocytes # (A) 0.3 k/uL (0-1.0); Monocytes % (A) 9 %; Neutrophils # (A) 2.1 k/uL (1.3-7.7); Neutrophils % (A) 54 %; Platelet Count 134 k/uL (150-450); RBC 2.96 m/uL (3.80-5.40); RDW 13.6 % (11.5-15.5); WBC 3.9 k/uL (3.8-10.6)
[2023-07-11 09:57] LABS: Potassium 3.6 mmol/L (3.5-5.1)
[2023-07-11 09:58] LABS: ALT 37 U/L (4-34); AST 107 U/L (14-36); African American GFR (CKD) >90 (>60 ml/min/1.73 sqM); Albumin 2.9 g/dL (3.5-5.0); Alkaline Phosphatase 59 U/L (38-126); Anion Gap 4 mmol/L; Blood Urea Nitrogen 20 mg/dL (7-17); Calcium 7.8 mg/dL (8.4-10.2); Carbon Dioxide 24 mmol/L (22-30); Chloride 108 mmol/L (98-107); Glucose 88 mg/dL (74-99); Non-African American GFR(CKD) >90 (>60 ml/min/1.73 sqM); Sodium 136 mmol/L (137-145); Total Bilirubin 0.4 mg/dL (0.2-1.3); Total Protein 5.4 g/dL (6.3-8.2)
--- NOTE | 2023-07-11 11:14 | CA ---
Transthoracic Echo Report Name: Felipa Lubin Age: 73 Gender: F : 1950 Exam Date: 07/11/2023 08:35 Exam Location: [place] [facility] Ht (in): 60 Wt (lb): 180 Ordering Physician: Mary Alvares Attending/Referring Phys: [id number], Dia Outsole Paraffiner Ilir Hu RDCS Procedure CPT: Indications: LVF Cardiac Hx: Technical Quality: Fair Contrast 1: Total Dose (mL): Contrast 2: Total Dose (mL): MEASUREMENTS (Male / Female) Normal Values 2D ECHO LV Diastolic Diameter PLAX 5.6 cm 4.2 - 5.9 / 3.9 - 5.3 cm LV Systolic Diameter PLAX 4.5 cm IVS Diastolic Thickness 1.2 cm 0.6 - 1.0 / 0.6 - 0.9 cm LVPW Diastolic Thickness 1.0 cm 0.6 - 1.0 / 0.6 - 0.9 cm LV Relative Wall Thickness 0.4 Aortic Root Diameter 3.8 cm LA Systolic Diameter LX 3.9 cm 3.0 - 4.0 / 2.7 - 3.8 cm DOPPLER AV Peak Velocity 156.4 cm/s AV Peak Gradient 9.8 mmHg AV Mean Velocity 98.6 cm/s AV Mean Gradient 4.5 mmHg AV Velocity Time Integral 34.1 cm LVOT Peak Velocity 49.7 cm/s LVOT Peak Gradient 1.0 mmHg LVOT Velocity Time Integral 14.7 cm Mitral E Point Velocity 141.0 cm/s Mitral A Point Velocity 128.8 cm/s Mitral E to A Ratio 1.1 MV Deceleration Time 288.2 ms PV Peak Velocity 72.7 cm/s PV Peak Gradient 2.1 mmHg FINDINGS Left Ventricle Mildly increased septal wall thickness. Mildly increased left ventricular diastolic diameter. Left ventricular ejection fraction is estimated at 50 %. Right Ventricle Right ventricle not well visualized. Right Atrium Right atrium not well visualized. Left Atrium Mildly increased left atrial diameter. Mitral Valve Mild mitral regurgitation. Mild mitral annular calcification. Aortic Valve Aortic valve not well visualized. Tricuspid Valve [id number] tricuspid regurgitation. Pulmonic Valve Pulmonic valve not well visualized. Pericardium Normal pericardium. Aorta Aortic root and proximal ascending aorta not well visualized. CONCLUSIONS Mildly increased left ventricular wall thickness Left ventricular ejection fraction 50% Mild mitral regurgitation Mild to moderate tricuspid regurgitation Previewed by: Dr. Lefty Saleem DO (Electronically Signed) Final Date: 11 July 2023 11:13
[2023-07-11 11:24] LABS: Glucose,Whole Blood 133 mg/dL (70-110)
--- NOTE | 2023-07-11 13:05 | P.PN ---
Subjective Progress Note Date: 07/11/23 Reason for Consult (text): Non-ST elevated myocardial infarction History of present illness: History of present illness: This is a 73-ann-marie-old female patient with no previous cardiac history and does not follow with a technical supervisor. She has a past medical history of hypertension, hyperlipidemia, previous CVA with right-sided weakness, seizure disorder, gastroesophageal reflux disease, hypothyroidism. We have been asked to evaluate the patient for non-ST elevated myocardial infarction. Patient presented to the emergency center due to increasing shortness of breath EKG sinus rhythm 66 bpm Chest x-ray: No acute findings. WC 614, hemoglobin 10.7, platelet count 139. INR 1.2. Troponin 12.3, 13.6, 14.5. Sodium 137, potassium 4.3, BUN 34 creatinine 0.72. Blood sugar 94. Lactic acid 1.3. Magnesium 1.8. AST 171, ALT 49. Triglycerides 82, c holesterol 97, LDL 35, HDL 45. Urinalysis revealed large blood. RBCs at 171. Influenza A detected. Influenza B, RSV, COVID-19 not detected. Home cardiac medications: Irbesartan 150 mg daily, Crestor 10 mg at bedtime, patient also on levothyroxine 75 mcg daily. Echocardiogram 12/07/2019 revealed EF of 55 to 60%, mild concentric left ventricular hypertrophy. Mild aortic valve sclerosis. Mild regurgitation. Mild to moderate tricuspid regurgitation. Mild to moderate pulmonary hypertension. 07/10 Yesterday, patient underwent cardiac catheterization with Dr. Mick Hou which revealed right coronary artery is large dominant vessel with heavy calcification and long segment of stenosis involving the midportion. Tight stenosis more distally as it bifurcates into PDA and PLV. There are [id number]-eygyk collaterals to the distal RCA. Left main coronary artery appears calcified but free of stenosis, divides into left anterior descending and circumflex. Circumflex coronary artery is nondominant. LAD shows moderate stenosis involving midportion. Patient subsequently underwent atherectomy RCA, shockwave lithotripsy angioplasty with balloon and PCI proximal to mid RCA with overlapping stents. Plan for aggressive risk factor modification. Patient started on Brilinta and continued on aspirin. Patient denies having any chest pain or shortness of breath at this time. Breathing is easier. Blood pressure 95/46, heart rate in the 70s, pulse ox 96% on 2 L nasal cannula. Repeat creatinine 0.58. Repeat EKG reviewed. 07/11 She denies have any chest pain but she does feel shortness of breath. Patient is on all oral cardiac medications. Repeat blood work reveals hemoglobin of 9.4. Sodium 136, potassium 3.6, BUN 20 creatinine 0.56. AST 107, ALT 37. Blood pressure 125/69, heart rate 58. Room air pulse ox was 89% and patient returned to 2 L nasal cannula. Patient is returning to [facility]. Patient has been advised that she is cleared for discharge and may follow-up in the [place] office with Dr. Mick Hou. Echocardiogram reveals EF of 50%, mild mitral digitation, mild to moderate tricuspid regurgitation. Physical examination: Gen: This is a 73-year-old female. She appears to be in no acute distress. VS: reviewed HEENT: Head is atraumatic, normocephalic. Pupils equal, round. Sclerae is anicteric. NECK: Supple. No JVD. LUNGS: Clear to auscultation. No wheezes or rhonchi. No intercostal retractions. HEART: Regular rate and rhythm. No murmur. ABDOMEN: Soft No tenderness. EXTREMITIES: No pedal edema. No calf tenderness. NEUROLOGICAL: Patient is awake, alert and oriented x3. Assessment: Non-ST elevated myocardial infarction status post cardiac catheterization and stent RCA x 2 RSV Hematuria on UA Hypertension Hyperlipidemia Previous CVA with right-sided weakness Seizure disorder Gastroesophageal reflux disease Hypothyroidism. Plan: Continue patient on aspirin 81 mg daily, atorvastatin 40 mg at bedtime, Plavix 75 mg daily Continue on Brilinta 90 mg twice daily Patient is cleared from cardiology for discharge and may follow-up in the [place] office with Dr. Mick Hou. Nurse practitioner note has been reviewed, I agree with documented findings and plan of care. Patient was seen and examined. Objective - Vital Signs Vital signs: Vital Signs Temp 98 F 07/11/23 04:00 Pulse 130 H 07/10/23 18:35 Resp 18 07/11/23 04:00 BP 119/64 07/11/23 04:00 Pulse Ox 95 07/11/23 04:00 FiO2 Intake & Output 07/10/23 07/11/23 07/11/23 18:59 06:59 18:59 Intake Total 118 Output Total 300 250 Balance -182 -250 Weight 81.647 kg Intake: Oral 118 Output: Urine 300 250 Uretheral (Sy) 125 Other: Voiding Method External Catheter # Voids 1 # Bowel Movements 1 1 - Labs CBC & Chem 7: 07/11/23 08:57 07/11/23 08:57 Labs: Abnormal Lab Results - Last 24 Hours (Table) 07/10/23 07/10/23 07/10/23 Range/Units 11:47 16:13 17:40 RBC (3.80-5.40) m/uL Hgb (11.4-16.0) gm/dL Hct (34.0-46.0) % Plt Count (150-450) k/uL Sodium (137-145) mmol/L Chloride (98-107) mmol/L BUN 25 H (7-17) mg/dL POC Glucose (mg/dL) 130 H 119 H (70-110) mg/dL Calcium 8.1 L (8.4-10.2) mg/dL AST 149 H (14-36) U/L ALT 43 H (4-34) U/L Total Protein 5.6 L (6.3-8.2) g/dL Albumin 3.1 L (3.5-5.0) g/dL 07/10/23 07/11/23 07/11/23 Range/Units 17:40 08:57 08:57 RBC 3.13 L 2.96 L (3.80-5.40) m/uL Hgb 10.1 L 9.4 L (11.4-16.0) gm/dL Hct 30.4 L 28.5 L (34.0-46.0) % Plt Count 119 L 134 L (150-450) k/uL Sodium 136 L (137-145) mmol/L Chloride 108 H (98-107) mmol/L BUN 20 H (7-17) mg/dL POC Glucose (mg/dL) (70-110) mg/dL Calcium 7.8 L (8.4-10.2) mg/dL AST 107 H (14-36) U/L ALT 37 H (4-34) U/L Total Protein 5.4 L (6.3-8.2) g/dL Albumin 2.9 L (3.5-5.0) g/dL Microbiology - Last 24 Hours (Table) 07/08/23 22:15 Blood Culture - Preliminary Blood
[2023-07-11] MEDS ORDERED: Potassium Replacement Protocol 1 EACH MISC MISCELLANE PRN (14:31)
[2023-07-11] MEDS: POTASSIUM CHLORIDE ER 20 MEQ TAB.ER PO SCH (16:27)
[2023-07-11 16:40] LABS: Glucose,Whole Blood 117 mg/dL (70-110)
[2023-07-11 19:43] LABS: Glucose,Whole Blood 131 mg/dL (70-110)
[2023-07-11] MEDS: ZINC OXIDE PASTE (Z-GUARD) 1 APPLIC TOPICAL PRN (20:54)
[2023-07-11] MEDS: OSELTAMIVIR 75 MG CAP PO SCH (20:55)
[2023-07-12 06:19] LABS: Glucose,Whole Blood 83 mg/dL (70-110)
[2023-07-12 09:31] LABS: Basophils % (A) 0 %; Eosinophils % (A) 0 %; HCT 29.4 % (34.0-46.0); HGB 9.5 gm/dL (11.4-16.0); Lymphocytes % (A) 40 %; MCH 31.6 pg (25.0-35.0); MCHC 32.3 g/dL (31.0-37.0); MCV 97.7 fL (80.0-100.0); Mean Platelet Volume 9.4; Monocytes # (A) 0.4 k/uL (0-1.0); Monocytes % (A) 8 %; Neutrophils # (A) 2.6 k/uL (1.3-7.7); Neutrophils % (A) 50 %; Platelet Count 126 k/uL (150-450); RBC 3.01 m/uL (3.80-5.40); RDW 13.7 % (11.5-15.5); WBC 5.1 k/uL (3.8-10.6)
[2023-07-12 09:49] LABS: ALT 29 U/L (4-34); AST 72 U/L (14-36); African American GFR (CKD) >90 (>60 ml/min/1.73 sqM); Albumin 2.6 g/dL (3.5-5.0); Alkaline Phosphatase 57 U/L (38-126); Anion Gap 6 mmol/L; Blood Urea Nitrogen 14 mg/dL (7-17); Calcium 7.5 mg/dL (8.4-10.2); Carbon Dioxide 23 mmol/L (22-30); Chloride 110 mmol/L (98-107); Glucose 83 mg/dL (74-99); Non-African American GFR(CKD) 90 (>60 ml/min/1.73 sqM); Potassium 3.7 mmol/L (3.5-5.1); Sodium 139 mmol/L (137-145); Total Bilirubin 0.4 mg/dL (0.2-1.3)
--- NOTE | 2023-07-12 10:00 | P.PN ---
Subjective Progress Note Date: 07/12/23 Felipa Lubin, is a 73-year-old female who presented to [facility] emergency room with a chief complaint of chest pain, patient was transferred from the [facility] emergency room. She was evaluated in the emergency room vital examination on presentation revealed a temperature of 100.3 pulse 71 respiration 18 and blood pressure 95/51 pulse ox 96% on 3 L nasal cannula Laboratory data reveals a white blood count of 7.8 hemoglobin 11.8 platelet count 137 BUN 34 creatinine 0.72 troponin level 12.3 influenza A PCR was positive Testing in the emergency room revealed EKG revealed sinus rhythm with T-wave abnormalities in the lateral leads. Chest x-ray revealed no acute findings in the chest Patient was admitted to medical floor for further evaluation and treatment. She was started on IV heparin, cardiology consultation was requested On 07/10/2023 patient was seen and examined on the medical floor she is alert and oriented 3 in no apparent distress, she is complaining of nausea otherwise she denies any complaints, there is no fever or chills no headache or dizziness no chest pain no shortness of breath no cough, no abdominal pain no diarrhea no blood in the stools no burning with urination no frequency or urgency and no hematuria. 07/11/2023 for patients alert and oriented 3. Patient underwent cardiac catheterization receiving 2 stents to the RCA. Repeat echocardiogram ordered. Patient remains on Tamiflu. Current vital signs temp 98, heart rate 57, respi ratory rate 18, blood pressure 119/60 fourth pulse ox 95% on 2 L. Patient denies chest pain or shortness breath. Patient denies nausea vomiting or diarrhea. Patient denies any urinary burning or frequency On 07/12/2023 patients alert and oriented 3. Patient still having some shortness of breath and coughing. Two-view chest x-ray ordered and pulmonary service is consulted. Current vital signs temp 98.5, heart rate 55, respiratory 20, blood pressure 143/65. Pulse ox 90% on 2 L. Patient denies chest pain. Patient denies nausea vomiting or diarrhea. Patient denies any urinary burning or frequency Objective - Vital Signs Vital signs: Vital Signs Temp 98.5 F 07/12/23 08:00 Pulse 55 L 07/12/23 08:00 Resp 20 07/12/23 08:00 BP 143/65 07/12/23 08:00 Pulse Ox 98 07/12/23 08:00 FiO2 Intake & Output 07/11/23 07/12/23 07/12/23 18:59 06:59 18:59 Intake Total 208 Output Total 2 200 Balance 206 -200 Weight 81.647 kg Intake: Oral 208 Output: Urine 200 Stool 2 Other: Voiding Method External Catheter External Catheter # Voids 3 1 # Bowel Movements 2 0 - Exam In general patient is alert and oriented x 3 in no distress HEENT head normocephalic and atraumatic Neck is supple no JVD no goiter no lymphadenopathy no carotid bruit Chest examination is clear to auscultation no crackles no wheezing Cardiac exam reveals regular heart sounds S1 and S2 no gallops no murmurs Abdomen is soft nontender no organomegaly with normal bowel sounds Extremity exam reveals no edema no cyanosis or clubbing Neurological examination reveals no gross focal deficits - Labs CBC & Chem 7: 07/12/23 08:01 07/12/23 08:01 Labs: Abnormal Lab Results - Last 24 Hours (Table) 07/11/23 07/11/23 07/11/23 Range/Units 08:57 08:57 11:23 RBC (3.80-5.40) m/uL Hgb (11.4-16.0) gm/dL Hct (34.0-46.0) % Plt Count (150-450) k/uL Sodium 136 L (137-145) mmol/L Chloride 108 H (98-107) mmol/L BUN 20 H (7-17) mg/dL POC Glucose (mg/dL) 133 H (70-110) mg/dL Hemoglobin A1c 6.6 H (<=6.0) % Calcium 7.8 L (8.4-10.2) mg/dL AST 107 H (14-36) U/L ALT 37 H (4-34) U/L Total Protein 5.4 L (6.3-8.2) g/dL Albumin 2.9 L (3.5-5.0) g/dL 07/11/23 07/11/23 07/12/23 Range/Units 16:39 19:40 08:01 RBC 3.01 L (3.80-5.40) m/uL Hgb 9.5 L (11.4-16.0) gm/dL Hct 29.4 L (34.0-46.0) % Plt Count 126 L (150-450) k/uL Sodium (137-145) mmol/L Chloride (98-107) mmol/L BUN (7-17) mg/dL POC Glucose (mg/dL) 117 H 131 H (70-110) mg/dL Hemoglobin A1c (<=6.0) % Calcium (8.4-10.2) mg/dL AST (14-36) U/L ALT (4-34) U/L Total Protein (6.3-8.2) g/dL Albumin (3.5-5.0) g/dL 07/12/23 Range/Units 08:01 RBC (3.80-5.40) m/uL Hgb (11.4-16.0) gm/dL Hct (34.0-46.0) % Plt Count (150-450) k/uL Sodium (137-145) mmol/L Chloride 110 H (98-107) mmol/L BUN (7-17) mg/dL POC Glucose (mg/dL) (70-110) mg/dL Hemoglobin A1c (<=6.0) % Calcium 7.5 L (8.4-10.2) mg/dL AST 72 H (14-36) U/L ALT (4-34) U/L Total Protein 5.0 L (6.3-8.2) g/dL Albumin 2.6 L (3.5-5.0) g/dL Microbiology - Last 24 Hours (Table) 07/08/23 22:15 Blood Culture - Preliminary Blood Assessment and Plan Plan: Non-ST elevated myocardial infarction. Status post cardiac cath with stents RCA Acute influenza A infection Underlying history of hypertension Underlying history of hyperlipidemia Previous history of stroke with right sided weakness Underlying history of seizure disorder Underlying history of hypothyroidism Underlying history of gastroesophageal reflux disease At this time patient was started on IV heparin Home medications reviewed and reordered Cardiology consultation requested 2 view chest x-ray ordered, pulmonary service is consulted tamiflu was added to her medication regimen Will follow closely
[2023-07-12] MEDS ORDERED: IPRATROPIUM-ALBUTEROL 3 ML NEB INHALATION PRN (11:03)
[2023-07-12 11:47] LABS: Glucose,Whole Blood 93 mg/dL (70-110)
[2023-07-12] MEDS: IPRATROPIUM-ALBUTEROL 3 ML NEB INHALATION SCH (12:42)
--- NOTE | 2023-07-12 12:45 | P.PN ---
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 She has a past medical history of hypertension, hyperlipidemia, previous CVA with right-sided weakness, seizure disorder, gastroesophageal reflux disease, hypothyroidism. We have been asked to evaluate the patient for non-ST elevated myocardial infarction. Patient presented to the emergency center due to increasing shortness of breath EKG sinus rhythm 66 bpm Chest x-ray: No acute findings. WC 614, hemoglobin 10.7, platelet count 139. INR 1.2. Troponin 12.3, 13.6, 14.5. Sodium 137, potassium 4.3, BUN 34 creatinine 0.72. Blood sugar 94. Lactic acid 1.3. Magnesium 1.8. AST 171, ALT 49. Triglycerides 82, c holesterol 97, LDL 35, HDL 45. Urinalysis revealed large blood. RBCs at 171. Influenza A detected. Influenza B, RSV, COVID-19 not detected. Home cardiac medications: Irbesartan 150 mg daily, Crestor 10 mg at bedtime, patient also on levothyroxine 75 mcg daily. Echocardiogram 12/07/2019 revealed EF of 55 to 60%, mild concentric left ventricular hypertrophy. Mild aortic valve sclerosis. Mild regurgitation. Mild to moderate tricuspid regurgitation. Mild to moderate pulmonary hypertension. 07/10 Yesterday, patient underwent cardiac catheterization with Dr. Mick Hou which revealed right coronary artery is large dominant vessel with heavy calcification and long segment of stenosis involving the midportion. Tight stenosis more distally as it bifurcates into PDA and PLV. There are [id number] collaterals to the distal RCA. Left main coronary artery appears calcified but free of stenosis, divides into left anterior descending and circumflex. Circumflex coronary artery is nondominant. LAD shows moderate stenosis involving midportion. Patient subsequently underwent atherectomy RCA, shockwave lithotripsy angioplasty with balloon and PCI proximal to mid RCA with overlapping stents. Plan for aggressive risk factor modification. Patient started on Brilinta and continued on aspirin. Patient denies having any chest pain or shortness of breath at this time. Breathing is easier. Blood pressure 95/46, heart rate in the 70s, pulse ox 96% on 2 L nasal cannula. Repeat creatinine 0.58. Repeat EKG reviewed. 07/11 She denies have any chest pain but she does feel shortness of breath. Patient is on all oral cardiac medications. Repeat blood work reveals hemoglobin of 9.4. Sodium 136, potassium 3.6, BUN 20 creatinine 0.56. AST 107, ALT 37. Blood pressure 125/69, heart rate 58. Room air pulse ox was 89% and patient returned to 2 L nasal cannula. Patient is returning to [facility]. Patient has been advised that she is cleared for discharge and may follow-up in the [place] office with Dr. Mick Hou. Echocardiogram reveals EF of 50%, mild mitral digitation, mild to moderate tricuspid regurgitation. 07/12 Patient remains in isolation for RSV. There is a new consult added for pulmonary medicine patient has been started on IV Solu-Medrol, inhaled steroids and nebulizers. Heart rate has been on the lower side and parameters will be placed on beta-gabi. Blood pressure 143/65, pulse ox 90% on 2 L. Repeat blood work reveals hemoglobin 9.5. Potassium 3.7, BUN 14 creatinine 0.6. Physical examination: Gen: This is a 73-year-old female. She appears to be in no acute dis tress. VS: reviewed HEENT: Head is atraumatic, normocephalic. Pupils equal, round. Sclerae is anicte imelda. LUNGS: Clear to auscultation. No wheezes or rhonchi. No intercostal retractions. HEART: Regular rate and rhythm. No murmur. EXTREMITIES: No pedal edema. No calf tenderness. NEUROLOGICAL: Patient is awake, alert and oriented x3. Assessment: Non-ST elevated myocardial infarction status post cardiac catheterization and stent RCA x 2 RSV Hematuria on UA Hypertension Hyperlipidemia Previous CVA with right-sided weakness Seizure disorder Gastroesophageal reflux disease Hypothyroidism. Plan: Continue patient on aspirin 81 mg daily, atorvastatin 40 mg at bedtime, d/c Plavix 75 mg daily Continue on Brilinta 90 mg twice daily At the time of patient's discharge, she may follow-up in the [place] office with Dr. Mick Hou. Nurse practitioner note has been reviewed, I agree with documented findings and plan of care. Patient was seen and examined. Objective - Vital Signs Vital signs: Vital Signs Temp 98.5 F 07/12/23 08:00 Pulse 55 L 02/16/24 08:00 Resp 20 07/12/23 08:00 BP 143/65 07/12/23 08:00 Pulse Ox 98 07/12/23 08:00 FiO2 Intake & Output 07/11/23 07/12/23 07/12/23 18:59 06:59 18:59 Intake Total 208 Output Total 2 200 1 Balance 206 -200 -1 Weight 81.647 kg Intake: Oral 208 Output: Urine 200 Stool 2 1 Other: Voiding Method External Catheter External Catheter External Catheter # Voids 3 1 # Bowel Movements 2 0 - Labs CBC & Chem 7: 07/12/23 08:01 07/12/23 08:01 Labs: Abnormal Lab Results - Last 24 Hours (Table) 07/11/23 07/11/23 07/11/23 Range/Units 08:57 11:23 16:39 RBC (3.80-5.40) m/uL Hgb (11.4-16.0) gm/dL Hct (34.0-46.0) % Plt Count (150-450) k/uL Chloride (98-107) mmol/L POC Glucose (mg/dL) 133 H 117 H (70-110) mg/dL Hemoglobin A1c 6.6 H (<=6.0) % Calcium (8.4-10.2) mg/dL AST (14-36) U/L Total Protein (6.3-8.2) g/dL Albumin (3.5-5.0) g/dL 07/11/23 07/12/23 07/12/23 Range/Units 19:40 08:01 08:01 RBC 3.01 L (3.80-5.40) m/uL Hgb 9.5 L (11.4-16.0) gm/dL Hct 29.4 L (34.0-46.0) % Plt Count 126 L (150-450) k/uL Chloride 110 H (98-107) mmol/L POC Glucose (mg/dL) 131 H (70-110) mg/dL Hemoglobin A1c (<=6.0) % Calcium 7.5 L (8.4-10.2) mg/dL AST 72 H (14-36) U/L Total Protein 5.0 L (6.3-8.2) g/dL Albumin 2.6 L (3.5-5.0) g/dL Microbiology - Last 24 Hours (Table) 07/08/23 22:15 Blood Culture - Preliminary Blood
--- NOTE | 2023-07-12 14:28 | P.CNPUL ---
History of Present Illness Consult date: 07/12/23 Requesting physician: Katie Bailey Reason for consult: dyspnea, cough, COPD Chief complaint: Chest pain History of present illness: This is a 73-year-old female, remote smoking history, no previous documented history of COPD, previous history of CVA and right-sided weakness, patient was seen initially few days ago at [facility], and she was seen mostly with symptoms of chest pain, and low-grade fever. Her temp was 100.3. Patient had also symptoms of some cough, occasional wheezing, and she tested positive for influenza A. Considering her EKG showed some T wave abnormalities in the lateral leads, patient was transferred to [facility], she was seen by cardiology on consultation, felt that the patient had non-ST elevation myocardial infarction. Patient underwent cardiac catheterization, and she was found to have 90% mid RCA stenosis. Patient underwent CSI rotational atherectomy, shockwave lithotripsy angioplasty of RCA with 3.0 mm balloon PCI of proximal to mid RCA with overlapping 3.0 x 33 mm and 3.0 x 23 mm xience dionne postdilated with a 3.0 noncompliant balloon, the recommendation was to treat patient post cardiac catheterization with dual antiplatelet, aspirin, Brilinta for 12 months patient continues to have intermittent episodes of cough and whe ezing, chest x-ray on admission showed no evidence of active disease. Considering her persistent pulmonary symptoms cough wheezing shortness of breath, this consult was initiated Review of Systems REVIEW OF SYSTEMS: CONSTITUTIONAL: Negative. EYES: Negative. ENT: Negative. CARDIAC: As noted in HPI. PULMONARY: As noted in HPI GI: Negative. GENITOURINARY: Negative. MUSCULOSKELETAL: Negative. SKIN: Negative. NEUROPSYCH: Patient had previous history of CVA, right-sided weakness, wheelchair ridden. ENDOCRINE: Negative. HEMATOLOGIC: Negative. Past Medical History Past Medical History: Diabetes Mellitus, Hyperlipidemia, Hypertension, Pneumonia, Thyroid Disorder Additional Past Medical History / Comment(s): NIDDM type II, hypothyroid, PAD, bronchitis, sinus problems, back pain with R sided sciatica, RLS. History of Any Multi-Drug Resistant Organisms: None Reported Past Surgical History: Appendectomy, Breast Surgery, Cholecystectomy, Hernia Repair, Hysterectomy, Tubal Ligation Additional Past Surgical History / Comment(s): Aortobifemoral bypass, ventral hernia repair, colonoscopy with benign polypectomy, bilateral cataract removal with lens implants, benign L breast bx. Past Anesthesia/Blood Transfusion Reactions: No Reported Reaction, Motion Sickness Past Psychological History: Bipolar Past Alcohol Use History: None Reported Past Drug Use History: None Reported - Past Family History Father Family Medical History: Cancer Additional Family Medical History / Comment(s): Father of prostate cancer at the age of 84 yrs. Mother Additional Family Medical History / Comment(s): Mother had heart problems and at the age of 64yrs. Pt states her mother never had a MA. Medications and Allergies Home Medications Medication Instructions Recorded Confirmed Type LORazepam [Ativan] 1 mg PO HS@199912/05/19 07/09/23 History Levothyroxine Sodium [Synthroid] 75 mcg PO DAILY@49912/05/19 07/09/23 History ARIPiprazole [Abilify] 2 mg PO DAILY@49907/09/23 07/09/23 History Acetaminophen Tab [Tylenol] 650 mg PO Q4H PRN 07/09/23 07/09/23 History Benzocaine 20 % Gel [Orajel] 1 applic MM Q6H PRN 07/09/23 07/09/23 History Divalproex Sprinkle [Depakote 375 mg PO HS@199907/09/23 07/09/23 History Sprinkle] Famotidine [Pepcid] 20 mg PO DAILY PRN 07/09/23 07/09/23 History HYDROcodone/APAP 5-325MG [Anson 1 tab PO Q6H PRN 07/09/23 07/09/23 History 5-325] Hydrocortisone Cream 1 applic TOPICAL BID PRN 07/09/23 07/09/23 History [Hydrocortisone 2.5% Cream] Insulin Glargine/Lixisenatide 40 units SQ DAILY@0700 07/09/23 07/09/23 History [Soliqua 100 Unit-33 Mcg/ml Pen] Insulin Lispro [humaLOG Kwikpen] 2 unit SQ TID@0700,1100,1700 07/09/23 07/09/23 History Insulin Lispro [humaLOG Kwikpen] See Protocol SQ TID@0700,1100,1700 07/09/23 07/09/23 History Irbesartan [Avapro] 150 mg PO DAILY@1100 07/09/24 02/13/24 History Ketoconazole 2% Cream [Nizoral 2%] 1 applic TOPICAL DAILY PRN 07/09/23 07/09/23 History Magnesium Hydroxide [Milk of 7,200 mg PO Q48H PRN 07/09/23 07/09/23 History Magnesia Concentrate] Ondansetron [Zofran] 4 mg PO Q6H PRN 07/09/23 07/09/23 History Pioglitazone [Actos] 15 mg PO DAILY@109907/09/23 07/09/23 History Polyvinyl Alcohol/Povidone [Clear 1 drop BOTH EYES BID@050,199907/09/23 07/09/23 History Eyes Natural Tears Drop] Rosuvastatin [Crestor] 10 mg PO HS@199907/09/23 07/09/23 History bisacodyL [Dulcolax] 10 mg RECTAL Q72H PRN 07/09/23 07/09/23 History buPROPion SR [Wellbutrin SR] 150 mg PO DAILY@49907/09/23 07/09/23 History metFORMIN HCL [Glucophage] 500 mg PO BID@050,199907/09/23 07/09/23 History Allergies Allergy/AdvReac Type Severity Reaction Status Date / Time No Known Allergies Allergy Verified 07/09/23 07:42 Physical Exam Vitals: Vital Signs Temp Pulse Pulse Resp BP Pulse Ox 07/12/23 12:57 60 07/12/23 12:47 57 L 07/12/23 12:46 98 07/12/23 08:00 98.5 F 55 L 20 143/65 98 07/12/23 04:00 98.5 F 57 L 18 146/66 98 07/12/23 02:00 59 L 20 07/12/23 00:00 100.1 F H 59 L 20 134/63 98 07/11/23 23:00 98 07/11/23 20:20 98.4 F 57 L 18 135/75 97 07/11/23 20:16 99.0 F 59 L 24 125/67 97 07/11/23 20:00 57 L 18 07/11/23 16:24 98.4 F 51 L 20 117/55 97 07/11/23 16:05 97 Intake and Output 07/11/23 07/12/2307/12/24 22:59 06:59 14:59 Intake Total 118 Output Total 200 1 Balance 118 -200 -1 Intake: Oral 118 Output: Urine 200 Stool 1 Other: Voiding Method External Catheter External Catheter External Catheter # Voids 1 # Bowel Movements 0 general: The patient is awake and alert, in no distress, and does not appear acutely ill. Skin: Skin is warm and dry and no rashes or lesions are noted. Eye: Pupils are equal, round and reactive to light, extra-ocular movements are intact; there is normal conjunctiva bilaterally. Ears, nose, mouth and throat: There are moist mucous membranes and no oral lesions. Neck: The neck is supple, there is no tenderness or JVD. Cardiovascular: There is a regular rate and rhythm. No murmur, rub or gallop is appreciated. Respiratory: Rhonchi and wheezes noted bilaterally. Gastrointestinal: Soft, non-distended, non-tender abdomen without masses or organomegaly noted. There is no rebound or guarding present. Bowel sounds are unremarkable. Neurological: CN II-XII intact, Cranial nerves III through XII are intact. Chronic right-sided hemiparesis is noted Psychiatric: Normal mood and affect and normal mental status examination Results - Laboratory Findings CBC and BMP: 07/12/23 08:01 07/12/23 08:01 PT/INR, D-dimer PT 12.9 sec (10.0-12.5) H 07/09/23 04:15 INR 1.2 (<1.2) H 07/09/23 04:15 Abnormal lab findings: Abnormal Labs 07/08/23 07/08/23 07/08/23 21:56 21:56 21:56 RBC 3.66 L Hgb Hct Plt Count 137 L Lymphocytes # 0.9 L PT 16.6 H INR 1.6 H APTT >200.0 H* Sodium Chloride BUN POC Glucose (mg/dL) Hemoglobin A1c Calcium AST ALT Troponin I Total Protein Albumin Urine Appearance Cloudy H Urine Protein 1+ H Urine Ketones 1+ H Urine Blood Large H Urine RBC 171 H Hyaline Casts 8 H Urine Mucus Many H Influenza Type A (PCR) 07/08/23 07/08/23 07/08/23 21:56 21:56 23:03 RBC Hgb Hct Plt Count Lymphocytes # PT INR APTT Sodium Chloride BUN 34 H POC Glucose (mg/dL) Hemoglobin A1c Calcium AST 171 H ALT 49 H Troponin I 12.300 H* 13.600 H* Total Protein Albumin Urine Appearance Urine Protein Urine Ketones Urine Blood Urine RBC Hyaline Casts Urine Mucus Influenza Type A (PCR) 07/09/23 07/09/23 07/09/23 00:09 01:01 04:15 RBC Hgb Hct Plt Count Lymphocytes # PT 12.9 H INR 1.2 H APTT 52.2 H Sodium Chloride BUN POC Glucose (mg/dL) Hemoglobin A1c Calcium AST ALT Troponin I 14.500 H* Total Protein Albumin Urine Appearance Urine Protein Urine Ketones Urine Blood Urine RBC Hyaline Casts Urine Mucus Influenza Type A (PCR) Detected A 07/09/23 07/10/23 07/10/23 04:15 11:47 16:13 RBC 3.35 L Hgb 10.7 L Hct 32.4 L Plt Count 139 L Lymphocytes # PT INR APTT Sodium Chloride BUN POC Glucose (mg/dL) 130 H 119 H Hemoglobin A1c Calcium AST ALT Troponin I Total Protein Albumin Urine Appearance Urine Protein Urine Ketones Urine Blood Urine RBC Hyaline Casts Urine Mucus Influenza Type A (PCR) 07/10/23 07/10/23 07/11/23 17:40 17:40 08:57 RBC 3.13 L Hgb 10.1 L Hct 30.4 L Plt Count 119 L Lymphocytes # PT INR APTT Sodium Chloride BUN 25 H POC Glucose (mg/dL) Hemoglobin A1c 6.6 H Calcium 8.1 L AST 149 H ALT 43 H Troponin I Total Protein 5.6 L Albumin 3.1 L Urine Appearance Urine Protein Urine Ketones Urine Blood Urine RBC Hyaline Casts Urine Mucus Influenza Type A (PCR) 07/11/23 07/11/23 07/11/23 08:57 08:57 11:23 RBC 2.96 L Hgb 9.4 L Hct 28.5 L Plt Count 134 L Lymphocytes # PT INR APTT Sodium 136 L Chloride 108 H BUN 20 H POC Glucose (mg/dL) 133 H Hemoglobin A1c Calcium 7.8 L AST 107 H ALT 37 H Troponin I Total Protein 5.4 L Albumin 2.9 L Urine Appearance Urine Protein Urine Ketones Urine Blood Urine RBC Hyaline Casts Urine Mucus Influenza Type A (PCR) 07/11/23 07/11/23 07/12/23 16:39 19:40 08:01 RBC 3.01 L Hgb 9.5 L Hct 29.4 L Plt Count 126 L Lymphocytes # PT INR APTT Sodium Chloride BUN POC Glucose (mg/dL) 117 H 131 H Hemoglobin A1c Calcium AST ALT Troponin I Total Protein Albumin Urine Appearance Urine Protein Urine Ketones Urine Blood Urine RBC Hyaline Casts Urine Mucus Influenza Type A (PCR) 07/12/23 08:01 RBC Hgb Hct Plt Count Lymphocytes # PT INR APTT Sodium Chloride 110 H BUN POC Glucose (mg/dL) Hemoglobin A1c Calcium 7.5 L AST 72 H ALT Troponin I Total Protein 5.0 L Albumin 2.6 L Urine Appearance Urine Protein Urine Ketones Urine Blood Urine RBC Hyaline Casts Urine Mucus Influenza Type A (PCR) - Diagnostic Findings Chest x-ray: image reviewed (As noted in HPI) Assessment and Plan Assessment: Impression: Acute non-ST elevation myocardial infarction Acute influenza infection/tracheobronchitis Acute exacerbation of COPD most likely triggered by influenza A tracheobronchitis History of CVA and right-sided weakness History of GERD fairly under control at present. History of hypothyroidism History of seizure disorder Ex-smoker, remote smoking history. Recommendation: Bronchodilators in the form of DuoNeb, Perforomist, and Pulmicort. IV Solu-Medrol. 40 mg IV push every 8 hours Continue cardiac meds Check procalcitonin level and decide whether antibiotics are necessary. Will continue to follow. Time with Patient: Greater than 30
--- NOTE | 2023-07-12 15:59 | XR ---
EXAMINATION TYPE: XR chest 1V portable DATE OF EXAM: 07/12/2023 Comparison: 07/08/2023 Clinical History: 73-year-old female Wheezing, cough Findings: Heart moderately enlarged. Interstitial opacity is present without fabiana consolidation or pleural eff usion. Impression: Moderate cardiomegaly with interstitial opacity. Correlate for bronchitis, atypical pneumonias, or mi ld pulmonary vascular congestion.
[2023-07-12 16:47] LABS: Glucose,Whole Blood 175 mg/dL (70-110)
[2023-07-12] MEDS: methylPREDNISolone SOD SUCCI 40 MG/ML 1 ML VIAL IV SCH (18:03)
[2023-07-12 20:07] LABS: Glucose,Whole Blood 149 mg/dL (70-110)
[2023-07-12] MEDS: FORMOTEROL FUMARATE 20 MCG/2 ML NEBU INHALATION SCH (20:25)
[2023-07-12] MEDS: BUDESONIDE 1 MG/2 ML NEBU INHALATION SCH (20:25)
--- NOTE | 2023-07-12 21:05 | P.CONS ---
History of Present Illness - Reason for Consult Consult date: 07/12/23 Diarrhea, flu Requesting physician: Katie Bailey - Chief Complaint Shortness of breath x few days - History of Present Illness Patient is a 73-year-old female presenting to the hospital 4 days ago as a transfer from [facility] where the patient presented because of feeling sick and was having vomiting, patient did have a CT at that facility concerning for possible left lower lobe infiltrate patient was subsequently transferred to [facility] for further evaluation on presentation to the hospital she did have a low-grade fever 100.3 F with the patient was afebrile until midnight today when she did have a fever of 100.1 degrees for night carolyn ent did tested positive for influenza A and has been treated with the Tamiflu patient did have a normal white count throughout her hospital stay kidney function has been normal liver isms are normal urine was negative chest x-ray done this admission no acute findings in the chest patient has been evaluated cardiology and did have angioplasty to the right RCA PCI proximal to mid RCA because of her low-grade fever diarrhea infectious was consulted for further management at the time my evaluation the patient denies having any further fever or chills has been complaining of feeling weak denies any headache or URI symptoms no chest pain there is no shortness of breath occasional cough but not bring up any sputum no further nausea vomiting no abdominal pain and no further diarrhea has been reported. Review of Systems Positive point and negatives has been mentioned in the HPI, complete review of systems was performed and all other systems are negative Past Medical History Past Medical History: Diabetes Mellitus, Hyperlipidemia, Hypertension, Pneumonia, Thyroid Disorder Additional Past Medical History / Comment(s): NIDDM type II, hypothyroid, PAD, bronchitis, sinus problems, back pain with R sided sciatica, RLS. History of Any Multi-Drug Resistant Organisms: None Reported Past Surgical History: Appendectomy, Breast Surgery, Cholecystectomy, Hernia Repair, Hysterectomy, Tubal Ligation Additional Past Surgical History / Comment(s): Aortobifemoral bypass, ventral hernia repair, colonoscopy with benign polypectomy, bilateral cataract removal with lens implants, benign L breast bx. Past Anesthesia/Blood Transfusion Reactions: No Reported Reaction, Motion Sickness Past Psychological History: Bipolar Past Alcohol Use History: None Reported Past Drug Use History: None Reported - Past Family History Father Family Medical History: Cancer Additional Family Medical History / Comment(s): Father of prostate cancer at the age of 84 yrs. Mother Additional Family Medical History / Comment(s): Mother had heart problems and at the age of 64yrs. Pt states her mother never had a PR. Medications and Allergies Home Medications Medication Instructions Recorded Confirmed Type Levothyroxine Sodium [Synthroid] 75 mcg PO DAILY@0500 12/05/19 07/09/23 History ARIPiprazole [Abilify] 2 mg PO DAILY@0500 07/09/23 07/09/23 History Acetaminophen Tab [Tylenol] 650 mg PO Q4H PRN 07/09/23 07/09/23 History Benzocaine 20 % Gel [Orajel] 1 applic MM Q6H PRN 07/09/23 07/09/23 History Divalproex Sprinkle [Depakote 375 mg PO HS@199907/09/23 07/09/23 History Sprinkle] Famotidine [Pepcid] 20 mg PO DAILY PRN 07/09/23 07/09/23 History Hydrocortisone Cream 1 applic TOPICAL BID PRN 07/09/23 07/09/23 History [Hydrocortisone 2.5% Cream] Insulin Glargine/Lixisenatide 40 units SQ DAILY@0707/09/23 07/09/23 History [Soliqua 100 Unit-33 Mcg/ml Pen] Insulin Lispro [humaLOG Kwikpen] 2 unit SQ TID@0700,1100,1700 07/09/23 07/09/23 History Insulin Lispro [humaLOG Kwikpen] See Protocol SQ TID@0700,1100,1700 07/09/23 07/09/23 History Ketoconazole 2% Cream [Nizoral 2%] 1 applic TOPICAL DAILY PRN 07/09/23 07/09/23 History Magnesium Hydroxide [Milk of 7,200 mg PO Q48H PRN 07/09/23 07/09/23 History Magnesia Concentrate] Ondansetron [Zofran] 4 mg PO Q6H PRN 07/09/23 07/09/23 History Pioglitazone [Actos] 15 mg PO DAILY@1100 07/09/23 07/09/23 History Polyvinyl Alcohol/Povidone [Clear 1 drop BOTH EYES BID@050,199907/09/23 07/09/23 History Eyes Natural Tears Drop] bisacodyL [Dulcolax] 10 mg RECTAL Q72H PRN 07/09/23 07/09/23 History buPROPion SR [Wellbutrin SR] 150 mg PO DAILY@0500 07/09/23 07/09/23 History metFORMIN HCL [Glucophage] 500 mg PO BID@0500,199907/09/23 07/09/23 History Aspirin 81 mg PO DAILY tab 07/16/23 Rx Atorvastatin [Lipitor] 40 mg PO HS tab 07/16/23 Rx Budesonide-Formot 160-4.5 Mcg 2 puff INHALATION RT-BID each 07/16/23 Rx [Symbicort 160-4.5 Mcg Inhaler] HYDROcodone/APAP 5-325MG [[place] 1 each PO Q6H PRN 3 Days #12 tab 07/16/23 Rx 5-325] HYDROcodone/APAP 5-325MG [[place] 1 tab PO Q6H PRN 3 Days #12 tab 07/16/23 Rx 5-325] INSULIN ASPART (NovoLOG) [NovoLOG 0 unit SQ ACHS each 07/16/23 Rx (formulary)] Ipratropium-Albuterol Nebulize 3 ml INHALATION RT-Q2H PRN each 07/16/23 Rx [Duoneb 0.5 mg-3 mg/3 ml Soln] Ipratropium-Albuterol Nebulize 3 ml INHALATION RT-QID each 07/16/23 Rx [Duoneb 0.5 mg-3 mg/3 ml Soln] Losartan [Cozaar] 75 mg PO DAILY tab 07/16/23 Rx Metoprolol Tartrate [Lopressor] 12.5 mg PO BID tab 07/16/23 Rx Ticagrelor [Brilinta] 90 mg PO BID tab 07/16/23 Rx predniSONE 30 mg PO DAILY 12 Days #14 tab 07/16/23 Rx Allergies Allergy/AdvReac Type Severity Reaction Status Date / Time No Known Allergies Allergy Verified 07/09/23 07:42 Physical Exam Vitals: Vital Signs Temp Pulse Resp BP Pulse Ox 07/12/23 08:00 98.5 F 55 L 20 143/65 98 07/12/23 04:00 98.5 F 57 L 18 146/66 98 07/12/23 02:00 59 L 20 07/12/23 00:00 100.1 F H 59 L 20 134/63 98 07/11/23 23:00 98 07/11/23 20:20 98.4 F 57 L 18 135/75 97 07/11/23 20:16 99.0 F 59 L 24 125/67 97 07/11/23 20:00 57 L 18 07/11/23 16:24 98.4 F 51 L 20 117/55 97 07/11/23 16:05 97 07/11/23 14:00 52 L 18 07/11/23 12:00 52 L 18 107/62 95 Intake and Output 07/11/23 07/12/23 07/12/23 22:59 06:59 14:59 Intake Total 118 Output Total 200 1 Balance 118 -200 -1 Intake: Oral 118 Output: Urine 200 Stool 1 Other: Voiding Method External Catheter External Catheter External Catheter # Voids 1 # Bowel Movements 0 GENERAL DESCRIPTION: Elderly female lying in bed, no distress. No tachypnea or accessory muscle of respiration use. HEENT: Shows Pallor , no scleral icterus. Oral mucous membrane is dry. NECK: Trachea central, no thyromegaly. LUNGS: Unlabored breathing. Coarse breath sounds bilaterally HEART: S1, S2, regular rate and rhythm. No loud murmur ABDOMEN: Soft, no tenderness , guarding or rigidity, no organomegaly EXTREMITIES: No edema of feet. SKIN: No rash, no masses palpable. NEUROLOGICAL: The patient is awake, alert, mood and affect normal. Results CBC & Chem 7: 07/13/23 07:09 07/13/23 07:09 Labs: Abnormal Lab Results - Last 24 Hours (Table) 07/11/23 07/11/23 07/11/23 Range/Units 08:57 16:39 19:40 RBC (3.80-5.40) m/uL Hgb (11.4-16.0) gm/dL Hct (34.0-46.0) % Plt Count (150-450) k/uL Chloride (98-107) mmol/L POC Glucose (mg/dL) 117 H 131 H (70-110) mg/dL Hemoglobin A1c 6.6 H (<=6.0) % Calcium (8.4-10.2) mg/dL AST (14-36) U/L Total Protein (6.3-8.2) g/dL Albumin (3.5-5.0) g/dL 07/12/23 07/12/23 Range/Units 08:01 08:01 RBC 3.01 L (3.80-5.40) m/uL Hgb 9.5 L (11.4-16.0) gm/dL Hct 29.4 L (34.0-46.0) % Plt Count 126 L (150-450) k/uL Chloride 110 H (98-107) mmol/L POC Glucose (mg/dL) (70-110) mg/dL Hemoglobin A1c (<=6.0) % Calcium 7.5 L (8.4-10.2) mg/dL AST 72 H (14-36) U/L Total Protein 5.0 L (6.3-8.2) g/dL Albumin 2.6 L (3.5-5.0) g/dL Microbiology - Last 24 Hours (Table) 07/08/23 22:15 Blood Culture - Preliminary Blood Assessment and Plan (1) Diarrhea Status: Acute Code(s): R19.7 - DIARRHEA, UNSPECIFIED SNOMED Code(s): 71039981 (2) Influenza A Status: Acute Code(s): J10.1 - FLU DUE TO OTH IDENT INFLUENZA VIRUS W OTH RESP MANIFEST SNOMED Code(s): 716064773 Plan: 1patient presented to hospital initially feeling significant vomiting and this patient tested positive for influenza and has completed her Tamiflu therapy none did have a low-grade fever congested cough and concern for possible pneumonia 2-we will wait for the chest x-ray PA lateral ordered for this morning 3-we will check a CRP and a procalcitonin level 4-need for antibiotic on the basis of chest x-ray and a procalcitonin level 5-if any further loose stool check stool studies including culture as well as stool for C. difficile We will follow on clinical condition and cultures to further adjust medication if needed Thank you for this consultation we will follow the patient along with you Dictation was produced using [employer] software. please excuse any grammatical, word or spelling errors. Time with Patient: Greater than 30
[2023-07-12] MEDS: OSELTAMIVIR 60 MG/10 ML ORAL SYRINGE PO SCH (22:05)
[2023-07-13 06:19] LABS: Glucose,Whole Blood 206 mg/dL (70-110)
[2023-07-13] MEDS: LOSARTAN 50 MG TAB PO SCH (09:03)
--- NOTE | 2023-07-13 09:03 | P.PN ---
Subjective Progress Note Date: 07/13/23 Reason for Consult (text): Non-ST elevated myocardial infarction History of present illness: History of present illness: This is a 73-ann-marie-old female patient with no previous cardiac history and does not follow with a manager perioperative. She has a past medical history of hypertension, hyperlipidemia, previous CVA with right-sided weakness, seizure disorder, gastroesophageal reflux disease, hypothyroidism. We have been asked to evaluate the patient for non-ST elevated myocardial infarction. Patient presented to the emergency center due to increasing shortness of breath EKG sinus rhythm 66 bpm Chest x-ray: No acute findings. WC 614, hemoglobin 10.7, platelet count 139. INR 1.2. Troponin 12.3, 13.6, 14.5. Sodium 137, potassium 4.3, BUN 34 creatinine 0.72. Blood sugar 94. Lactic acid 1.3. Magnesium 1.8. AST 171, ALT 49. Triglycerides 82, c holesterol 97, LDL 35, HDL 45. Urinalysis revealed large blood. RBCs at 171. Influenza A detected. Influenza B, RSV, COVID-19 not detected. Home cardiac medications: Irbesartan 150 mg daily, Crestor 10 mg at bedtime, patient also on levothyroxine 75 mcg daily. Echocardiogram 12/07/2019 revealed EF of 55 to 60%, mild concentric left ventricular hypertrophy. Mild aortic valve sclerosis. Mild regurgitation. Mild to moderate tricuspid regurgitation. Mild to moderate pulmonary hypertension. 07/10 Yesterday, patient underwent cardiac catheterization with Dr. Mick Hou which revealed right coronary artery is large dominant vessel with heavy calcification and long segment of stenosis involving the midportion. Tight stenosis more distally as it bifurcates into PDA and PLV. There are [id number] collaterals to the distal RCA. Left main coronary artery appears calcified but free of stenosis, divides into left anterior descending and circumflex. Circumflex coronary artery is nondominant. LAD shows moderate stenosis involving midportion. Patient subsequently underwent atherectomy RCA, shockwave lithotripsy angioplasty with balloon and PCI proximal to mid RCA with overlapping stents. Plan for aggressive risk factor modification. Patient started on Brilinta and continued on aspirin. Patient denies having any chest pain or shortness of breath at this time. Breathing is easier. Blood pressure 95/46, heart rate in the 70s, pulse ox 96% on 2 L nasal cannula. Repeat creatinine 0.58. Repeat EKG reviewed. 07/11 She denies have any chest pain but she does feel shortness of breath. Patient is on all oral cardiac medications. Repeat blood work reveals hemoglobin of 9.4. Sodium 136, potassium 3.6, BUN 20 creatinine 0.56. AST 107, ALT 37. Blood pressure 125/69, heart rate 58. Room air pulse ox was 89% and patient returned to 2 L nasal cannula. Patient is returning to [facility]. Patient has been advised that she is cleared for discharge and may follow-up in the [place] office with Dr. Mick Hou. Echocardiogram reveals EF of 50%, mild mitral digitation, mild to moderate tricuspid regurgitation. 07/12 Patient remains in isolation for RSV. There is a new consult added for pulmonary medicine patient has been started on IV Solu-Medrol, inhaled steroids and nebulizers. Heart rate has been on the lower side and parameters will be placed on beta-gabi. Blood pressure 143/65, pulse ox 90% on 2 L. Repeat blood work reveals hemoglobin 9.5. Potassium 3.7, BUN 14 creatinine 0.6. 07/13 Breathing status seems to be improved today from yesterday. She is complaining of back pain. No chest pain. Blood pressure 160/74, heart rate 62, pulse ox 97% on 2 L nasal cannula. No repeat lab work available for today. Physical examination: Gen: This is a 73-year-old female. She appears to be in no acute distress. VS: reviewed HEENT: Head is atraumatic, normocephalic. Pupils equal, round. Sclerae is anicteric. LUNGS: Diminished breath sounds. No intercostal retractions. HEART: Regular rate and rhythm. No murmur. EXTREMITIES: Mild pedal edema. No calf tenderness. NEUROLOGICAL: Patient is awake, alert. Assessment: Non-ST elevated myocardial infarction status post cardiac catheterization and stent RCA x 2 RSV Hematuria on UA Hypertension Hyperlipidemia Previous CVA with right-sided weakness Seizure disorder Gastroesophageal reflux disease Hypothyroidism. Plan: Continue patient on aspirin 81 mg daily, atorvastatin 40 mg at bedtime, d/c Plavix 75 mg daily Continue on Brilinta 90 mg twice daily Increase losartan to 50 mg daily for blood pressure control At the time of patient's discharge, she may follow-up in the [place] office with Dr. Mick Hou. Nurse practitioner note has been reviewed, I agree with documented findings and plan of care. Patient was seen and examined. Objective - Vital Signs Vital signs: Vital Signs Temp 98.7 F 07/13/23 04:00 Pulse 62 07/13/23 04:00 Resp 18 07/13/23 04:00 BP 160/74 07/13/23 04:00 Pulse Ox 97 07/13/23 04:00 FiO2 Intake & Output 07/12/23 07/13/23 07/13/23 18:59 06:59 18:59 Output Total 1 1 Balance -1 -1 Output: Stool 1 1 Other: Voiding Method External Catheter External Catheter # Voids 1 - Labs CBC & Chem 7: 07/12/23 08:01 07/12/23 08:01 Labs: Abnormal Lab Results - Last 24 Hours (Table) 07/12/23 07/12/23 07/12/23 Range/Units 08:01 08:01 16:42 RBC 3.01 L (3.80-5.40) m/uL Hgb 9.5 L (11.4-16.0) gm/dL Hct 29.4 L (34.0-46.0) % Plt Count 126 L (150-450) k/uL Chloride 110 H (98-107) mmol/L POC Glucose (mg/dL) 175 H (70-110) mg/dL Calcium 7.5 L (8.4-10.2) mg/dL AST 72 H (14-36) U/L Total Protein 5.0 L (6.3-8.2) g/dL Albumin 2.6 L (3.5-5.0) g/dL 07/12/23 07/13/23 Range/Units 20:04 06:18 RBC (3.80-5.40) m/uL Hgb (11.4-16.0) gm/dL Hct (34.0-46.0) % Plt Count (150-450) k/uL Chloride (98-107) mmol/L POC Glucose (mg/dL) 149 H 206 H (70-110) mg/dL Calcium (8.4-10.2) mg/dL AST (14-36) U/L Total Protein (6.3-8.2) g/dL Albumin (3.5-5.0) g/dL Microbiology - Last 24 Hours (Table) 07/08/23 22:15 Blood Culture - Preliminary Blood
[2023-07-13 09:28] LABS: Potassium 4.2 mmol/L (3.5-5.1)
[2023-07-13 09:29] LABS: ALT 26 U/L (4-34); AST 46 U/L (14-36); African American GFR (CKD) >90 (>60 ml/min/1.73 sqM); Albumin 2.7 g/dL (3.5-5.0); Alkaline Phosphatase 63 U/L (38-126); Anion Gap 7 mmol/L; Blood Urea Nitrogen 10 mg/dL (7-17); Calcium 7.6 mg/dL (8.4-10.2); Carbon Dioxide 23 mmol/L (22-30); Chloride 111 mmol/L (98-107); Glucose 213 mg/dL (74-99); Non-African American GFR(CKD) >90 (>60 ml/min/1.73 sqM); Sodium 141 mmol/L (137-145); Total Bilirubin 0.4 mg/dL (0.2-1.3); Total Protein 5.3 g/dL (6.3-8.2)
[2023-07-13 09:35] LABS: HGB 10.1 gm/dL (11.4-16.0); MCH 31.6 pg (25.0-35.0); MCHC 32.5 g/dL (31.0-37.0); MCV 97.3 fL (80.0-100.0); Mean Platelet Volume 9.6; Platelet Count 131 k/uL (150-450); RBC 3.19 m/uL (3.80-5.40); RDW 13.6 % (11.5-15.5); WBC 2.6 k/uL (3.8-10.6)
[2023-07-13] MEDS: FUROSEMIDE 10 MG/ML 4 ML VIAL IV STA (11:29)
--- NOTE | 2023-07-13 11:41 | P.PN ---
Subjective Progress Note Date: 07/13/23 Felipa Lubin, is a 73-year-old female who presented to [facility] emergency room with a chief complaint of chest pain, patient was transferred from the [facility] emergency room. She was evaluated in the emergency room vital examination on presentation revealed a temperature of 100.3 pulse 71 respiration 18 and blood pressure 95/51 pulse ox 96% on 3 L nasal cannula Laboratory data reveals a white blood count of 7.8 hemoglobin 11.8 platelet count 137 BUN 34 creatinine 0.72 troponin level 12.3 influenza A PCR was positive Testing in the emergency room revealed EKG revealed sinus rhythm with T-wave abnormalities in the lateral leads. Chest x-ray revealed no acute findings in the chest Patient was admitted to medical floor for further evaluation and treatment. She was started on IV heparin, cardiology consultation was requested On 07/10/2023 patient was seen and examined on the medical floor she is alert and oriented 3 in no apparent distress, she is complaining of nausea otherwise she denies any complaints, there is no fever or chills no headache or dizziness no chest pain no shortness of breath no cough, no abdominal pain no diarrhea no blood in the stools no burning with urination no frequency or urgency and no hematuria. 07/11/2023 for patients alert and oriented 3. Patient underwent cardiac catheterization receiving 2 stents to the RCA. Repeat echocardiogram ordered. Patient remains on Tamiflu. Current vital signs temp 98, heart rate 57, respi ratory rate 18, blood pressure 119/60 fourth pulse ox 95% on 2 L. Patient denies chest pain or shortness breath. Patient denies nausea vomiting or diarrhea. Patient denies any urinary burning or frequency On 07/12/2023 patients alert and oriented 3. Patient still having some shortness of breath and coughing. Two-view chest x-ray ordered and pulmonary service is consulted. Current vital signs temp 98.5, heart rate 55, respiratory 20, blood pressure 143/65. Pulse ox 90% on 2 L. Patient denies chest pain. Patient denies nausea vomiting or diarrhea. Patient denies any urinary burning or frequency On 07/13/2023 patient was seen and examined on the medical floor she is alert and oriented 3 in no apparent distress, she is still complaining of shortness of breath cough and wheezing, otherwise she denies any complaints there is no fever or chills no headache or dizziness no chest pain no nausea or vomiting no abdominal pain no diarrhea and no urinary symptoms. Input from pulmonary and infectious disease was reviewed, chest x-ray reviewed, pro-calcitonin level is low at 0.09, no antibiotic prescribed. Patient was started on IV Solu-Medrol, will continue to monitor closely. Objective - Vital Signs Vital signs: Vital Signs Temp 98.7 F 07/13/23 04:00 Pulse 62 07/13/23 04:00 Resp 18 07/13/23 04:00 BP 160/74 07/13/23 04:00 Pulse Ox 97 07/13/23 04:00 FiO2 Intake & Output 07/12/23 07/13/23 07/13/23 18:59 06:59 18:59 Output Total 1 1 Balance -1 -1 Output: Stool 1 1 Other: Voiding Method External Catheter External Catheter # Voids 1 - Exam In general patient is alert and oriented x 3 in no distress HEENT head normocephalic and atraumatic Neck is supple no JVD no goiter no lymphadenopathy no carotid bruit Chest examination is clear to auscultation no crackles no wheezing Cardiac exam reveals regular heart sounds S1 and S2 no gallops no murmurs Abdomen is soft nontender no organomegaly with normal bowel sounds Extremity exam reveals no edema no cyanosis or clubbing Neurological examination reveals no gross focal deficits - Labs CBC & Chem 7: 07/13/23 07:09 07/13/23 07:09 Labs: Abnormal Lab Results - Last 24 Hours (Table) 07/12/23 07/12/23 07/13/23 Range/Units 16:42 20:04 06:18 WBC (3.8-10.6) k/uL RBC (3.80-5.40) m/uL Hgb (11.4-16.0) gm/dL Hct (34.0-46.0) % Plt Count (150-450) k/uL Chloride (98-107) mmol/L Creatinine (0.52-1.04) mg/dL Glucose (74-99) mg/dL POC Glucose (mg/dL) 175 H 149 H 206 H (70-110) mg/dL Calcium (8.4-10.2) mg/dL AST (14-36) U/L Total Protein (6.3-8.2) g/dL Albumin (3.5-5.0) g/dL 07/13/23 07/13/23 Range/Units 07:09 07:09 WBC 2.6 L (3.8-10.6) k/uL RBC 3.19 L (3.80-5.40) m/uL Hgb 10.1 L (11.4-16.0) gm/dL Hct 31.0 L (34.0-46.0) % Plt Count 131 L (150-450) k/uL Chloride 111 H (98-107) mmol/L Creatinine 0.43 L (0.52-1.04) mg/dL Glucose 213 H (74-99) mg/dL POC Glucose (mg/dL) (70-110) mg/dL Calcium 7.6 L (8.4-10.2) mg/dL AST 46 H (14-36) U/L Total Protein 5.3 L (6.3-8.2) g/dL Albumin 2.7 L (3.5-5.0) g/dL Assessment and Plan Plan: Non-ST elevated myocardial infarction. Status post cardiac cath with stents RCA Acute influenza A infection Underlying history of hypertension Underlying history of hyperlipidemia Previous history of stroke with right sided weakness Underlying history of seizure disorder Underlying history of hypothyroidism Underlying history of gastroesophageal reflux disease At this time patient was started on IV heparin Home medications reviewed and reordered Cardiology consultation requested 2 view chest x-ray ordered, pulmonary service is consulted tamiflu was added to her medication regimen Will follow closely
[2023-07-13 11:45] LABS: Glucose,Whole Blood 197 mg/dL (70-110)
--- NOTE | 2023-07-13 14:45 | P.PN ---
Subjective Progress Note Date: 07/13/23 Principal diagnosis: Acute non-ST elevation myocardial infarction and acute COPD exacerbation This is a 73-year-old female, remote smoking history, no previous documented history of COPD, previous history of CVA and right-sided weakness, patient was seen initially few days ago at [facility], and she was seen mostly with symptoms of chest pain, and low-grade fever. Her temp was 100.3. Patient had also symptoms of some cough, occasional wheezing, and she tested positive for influenza A. Considering her EKG showed some T wave abnormalities in the lateral leads, patient was transferred to [facility], she was seen by cardiology on consultation, felt that the patient had non-ST elevation myocardial infarction. Patient underwent cardiac catheterization, and she was found to have 90% mid RCA stenosis. Patient underwent CSI rotational atherectomy, shockwave lithotripsy angioplasty of RCA with 3.0 mm balloon PCI of proximal to mid RCA with overlapping 3.0 x 33 mm and 3.0 x 23 mm xience dionne postdilated with a 3.0 noncompliant balloon, the recommendation was to treat patient post cardiac catheterization with dual antiplatelet, aspirin, Brilinta for 12 months patient continues to have intermittent episodes of cough and wheezing, chest x-ray on admission showed no evidence of active disease. Considering her persistent pulmonary symptoms cough wheezing shortness of breath, this consult was initiated Patient was reevaluated today on 07/13/2023, basically about the same, continues to have intermittent episodes of cough wheezing and shortness of breath. Patient is on bronchodilators, she is also on diuretics, and she is receiving treatment for her influenza infection, minimal improvement noted in the last 24 hours.WBC count today is 2.6 hemoglobin is 10 basic metabolic profile is normal renal profile is normal. Objective - Vital Signs Vital signs: Vital Signs Temp 98.1 F 07/13/23 12:00 Pulse 58 L 07/13/23 12:00 Resp 18 07/13/23 12:00 BP 134/94 07/13/23 12:00 Pulse Ox 94 L 07/13/23 12:00 FiO2 Intake & Output 07/12/23 07/13/23 07/13/23 18:59 06:59 18:59 Output Total 1 1 1 Balance -1 -1 -1 Output: Stool 1 1 1 Other: Voiding Method External Catheter External Catheter External Catheter # Voids 1 - Exam general: The patient is awake and alert, in no distress, and does not appear acutely ill. Skin: Skin is warm and dry and no rashes or lesions are noted. Eye: Pupils are equal, round and reactive to light, extra-ocular movements are intact; there is normal conjunctiva bilaterally. Ears, nose, mouth and throat: There are moist mucous membranes and no oral lesions. Neck: The neck is supple, there is no tenderness or JVD. Cardiovascular: There is a regular rate and rhythm. No murmur, rub or gallop is appreciated. Respiratory: Rhonchi and wheezes noted bilaterally. Gastrointestinal: Soft, non-distended, non-tender abdomen without masses or o rganomegaly noted. There is no rebound or guarding present. Bowel sounds are unremarkable. Neurological: CN II-XII intact, Cranial nerves III through XII are intact. Chronic right-sided hemiparesis is noted Psychiatric: Normal mood and affect and normal mental status examination - Labs CBC & Chem 7: 07/13/23 07:09 07/13/23 07:09 Labs: Abnormal Lab Results - Last 24 Hours (Table) 07/12/23 07/12/23 07/13/23 Range/Units 16:42 20:04 06:18 WBC (3.8-10.6) k/uL RBC (3.80-5.40) m/uL Hgb (11.4-16.0) gm/dL Hct (34.0-46.0) % Plt Count (150-450) k/uL Chloride (98-107) mmol/L Creatinine (0.52-1.04) mg/dL Glucose (74-99) mg/dL POC Glucose (mg/dL) 175 H 149 H 206 H (70-110) mg/dL Calcium (8.4-10.2) mg/dL AST (14-36) U/L Total Protein (6.3-8.2) g/dL Albumin (3.5-5.0) g/dL 07/13/23 07/13/23 07/13/23 Range/Units 07:09 07:09 11:44 WBC 2.6 L (3.8-10.6) k/uL RBC 3.19 L (3.80-5.40) m/uL Hgb 10.1 L (11.4-16.0) gm/dL Hct 31.0 L (34.0-46.0) % Plt Count 131 L (150-450) k/uL Chloride 111 H (98-107) mmol/L Creatinine 0.43 L (0.52-1.04) mg/dL Glucose 213 H (74-99) mg/dL POC Glucose (mg/dL) 197 H (70-110) mg/dL Calcium 7.6 L (8.4-10.2) mg/dL AST 46 H (14-36) U/L Total Protein 5.3 L (6.3-8.2) g/dL Albumin 2.7 L (3.5-5.0) g/dL Assessment and Plan Assessment: Impression: Acute non-ST elevation myocardial infarction Acute influenza infection/tracheobronchitis Acute exacerbation of COPD most likely triggered by influenza A tracheobronchitis History of CVA and right-sided weakness History of GERD fairly under control at present. History of hypothyroidism History of seizure disorder Ex-smoker, remote smoking history. Recommendation: Bronchodilators in the form of DuoNeb, Perforomist, and Pulmicort. Continue IV Solu-Medrol. 40 mg IV push every 8 hours Continue cardiac meds Procalcitonin level is basically within the normal range, will consider stopping antibiotics in the next 24 hours depending on her overall status. Procalcitonin today is 0.09 which is within a normal range Will continue to follow. Time with Patient: Less than 30
[2023-07-13 14:50] LABS: Lymphocytes # (M) 0.81 k/uL (1.0-4.8); Monocytes # (M) 0.05 k/uL (0-1.0); Neutrophils # (M) 1.74 k/uL (1.3-7.7); Neutrophils % (M) 67 %; Nucleated Red Blood Cells 0 /100 WBC (0-0); RBC Morphology Normal; Total Cells Counted 100
[2023-07-13 16:42] LABS: Glucose,Whole Blood 305 mg/dL (70-110)
[2023-07-13 20:06] LABS: Glucose,Whole Blood 299 mg/dL (70-110)
[2023-07-13] MEDS: OSELTAMIVIR 75 MG CAP PO SCH (20:42)
[2023-07-14 06:18] LABS: Glucose,Whole Blood 230 mg/dL (70-110)
[2023-07-14] MEDS: LOSARTAN 50 MG TAB PO SCH (09:01)
--- NOTE | 2023-07-14 09:24 | P.PN ---
Subjective Progress Note Date: 07/14/23 Felipa Lubin, is a 73-year-old female who presented to [facility] emergency room with a chief complaint of chest pain, patient was transferred from the [facility] emergency room. She was evaluated in the emergency room vital examination on presentation revealed a temperature of 100.3 pulse 71 respiration 18 and blood pressure 95/51 pulse ox 96% on 3 L nasal cannula Laboratory data reveals a white blood count of 7.8 hemoglobin 11.8 platelet count 137 BUN 34 creatinine 0.72 troponin level 12.3 influenza A PCR was positive Testing in the emergency room revealed EKG revealed sinus rhythm with T-wave abnormalities in the lateral leads. Chest x-ray revealed no acute findings in t he chest Patient was admitted to medical floor for further evaluation and treatment. She was started on IV heparin, cardiology consultation was requested On 07/10/2023 patient was seen and examined on the medical floor she is alert and oriented 3 in no apparent distress, she is complaining of nausea otherwise she denies any complaints, there is no fever or chills no headache or dizziness no chest pain no shortness of breath no cough, no abdominal pain no diarrhea no blood in the stools no burning with urination no frequency or urgency and no hematuria. 07/11/2023 for patients alert and oriented 3. Patient underwent cardiac catheterization receiving 2 stents to the RCA. Repeat echocardiogram ordered. Patient remains on Tamiflu. Current vital signs temp 98, heart rate 57, respira tory rate 18, blood pressure 119/60 fourth pulse ox 95% on 2 L. Patient denies chest pain or shortness breath. Patient denies nausea vomiting or diarrhea. Patient denies any urinary burning or frequency On 07/12/2023 patients alert and oriented 3. Patient still having some shortness of breath and coughing. Two-view chest x-ray ordered and pulmonary service is consulted. Current vital signs temp 98.5, heart rate 55, respiratory 20, blood pressure 143/65. Pulse ox 90% on 2 L. Patient denies chest pain. Patient denies nausea vomiting or diarrhea. Patient denies any urinary burning or frequency On 07/13/2023 patient was seen and examined on the medical floor she is alert and oriented 3 in no apparent distress, she is still complaining of shortness of breath cough and wheezing, otherwise she denies any complaints there is no fever or chills no headache or dizziness no chest pain no nausea or vomiting no abdominal pain no diarrhea and no urinary symptoms. Input from pulmonary and infectious disease was reviewed, chest x-ray reviewed, pro-calcitonin level is low at 0.09, no antibiotic prescribed. Patient was started on IV Solu-Medrol, will continue to monitor closely. On 07/14/2023 patients alert and oriented 3. Patient reports improvement overall cough shortness of breath. Patient remains on IV Solu-Medrol. Cardiology, pulmonary and infectious disease services are following. Current vital signs temp 97.7, heart rate 64, respiratory rate 18, blood pressure 150/60 with a pulse ox 94% on 2 L. Patient denies chest pain. Patient denies nausea vomiting or diarrhea. Patient denies any urinary frequency Objective - Vital Signs Vital signs: Vital Signs Temp 98.0 F 07/13/23 20:00 Pulse 64 07/14/23 04:00 Resp 16 07/14/23 04:00 BP 162/69 07/14/23 04:00 Pulse Ox 94 L 07/14/23 04:00 FiO2 Intake & Output 07/13/23 07/14/23 07/14/23 18:59 06:59 18:59 Intake Total 476 Output Total 252 302 100 Balance 224 -302 -100 Intake: Oral 476 Output: Urine 250 300 100 Stool 2 2 Other: Voiding Method External Catheter External Catheter - Exam In general patient is alert and oriented x 3 in no distress HEENT head normocephalic and atraumatic Neck is supple no JVD no goiter no lymphadenopathy no carotid bruit Chest examination is clear to auscultation no crackles no wheezing Cardiac exam reveals regular heart sounds S1 and S2 no gallops no murmurs Abdomen is soft nontender no organomegaly with normal bowel sounds Extremity exam reveals no edema no cyanosis or clubbing Neurological examination reveals no gross focal deficits - Labs CBC & Chem 7: 07/13/23 07:09 07/13/23 07:09 Labs: Abnormal Lab Results - Last 24 Hours (Table) 07/13/23 07/13/23 07/13/23 Range/Units 07:09 07:09 11:44 WBC 2.6 L (3.8-10.6) k/uL RBC 3.19 L (3.80-5.40) m/uL Hgb 10.1 L (11.4-16.0) gm/dL Hct 31.0 L (34.0-46.0) % Plt Count 131 L (150-450) k/uL Lymphocytes # (Manual) 0.81 L (1.0-4.8) k/uL Chloride 111 H (98-107) mmol/L Creatinine 0.43 L (0.52-1.04) mg/dL Glucose 213 H (74-99) mg/dL POC Glucose (mg/dL) 197 H (70-110) mg/dL Calcium 7.6 L (8.4-10.2) mg/dL AST 46 H (14-36) U/L Total Protein 5.3 L (6.3-8.2) g/dL Albumin 2.7 L (3.5-5.0) g/dL 07/13/23 07/13/23 07/14/23 Range/Units 16:40 20:04 06:13 WBC (3.8-10.6) k/uL RBC (3.80-5.40) m/uL Hgb (11.4-16.0) gm/dL Hct (34.0-46.0) % Plt Count (150-450) k/uL Lymphocytes # (Manual) (1.0-4.8) k/uL Chloride (98-107) mmol/L Creatinine (0.52-1.04) mg/dL Glucose (74-99) mg/dL POC Glucose (mg/dL) 305 H 299 H 230 H (70-110) mg/dL Calcium (8.4-10.2) mg/dL AST (14-36) U/L Total Protein (6.3-8.2) g/dL Albumin (3.5-5.0) g/dL Microbiology - Last 24 Hours (Table) 07/08/23 22:15 Blood Culture - Final Blood Assessment and Plan Assessment: Non-ST elevated myocardial infarction. Status post cardiac cath with stents RCA Acute influenza A infection Acute exacerbation of COPD Underlying history of hypertension Underlying history of hyperlipidemia Previous history of stroke with right sided weakness Underlying history of seizure disorder Underlying history of hypothyroidism Underlying history of gastroesophageal reflux disease At this time patient was started on IV heparin Home medications reviewed and reordered Cardiology consultation requested Pulmonary and infectious disease services following 2 view chest x-ray ordered, pulmonary service is consulted tamiflu was added to her medication regimen Will follow closely
--- NOTE | 2023-07-14 09:26 | P.PN ---
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 She has a past medical history of hypertension, hyperlipidemia, previous CVA with right-sided weakness, seizure disorder, gastroesophageal reflux disease, hypothyroidism. We have been asked to evaluate the patient for non-ST elevated myocardial infarction. Patient presented to the emergency center due to increasing shortness of breath EKG sinus rhythm 66 bpm Chest x-ray: No acute findings. WC 614, hemoglobin 10.7, platelet count 139. INR 1.2. Troponin 12.3, 13.6, 14.5. Sodium 137, potassium 4.3, BUN 34 creatinine 0.72. Blood sugar 94. Lactic acid 1.3. Magnesium 1.8. AST 171, ALT 49. Triglycerides 82, c holesterol 97, LDL 35, HDL 45. Urinalysis revealed large blood. RBCs at 171. Influenza A detected. Influenza B, RSV, COVID-19 not detected. Home cardiac medications: Irbesartan 150 mg daily, Crestor 10 mg at bedtime, patient also on levothyroxine 75 mcg daily. Echocardiogram 12/07/2019 revealed EF of 55 to 60%, mild concentric left ventricular hypertrophy. Mild aortic valve sclerosis. Mild regurgitation. Mild to moderate tricuspid regurgitation. Mild to moderate pulmonary hypertension. 07/10 Yesterday, patient underwent cardiac catheterization with Dr. Mick Hou which revealed right coronary artery is large dominant vessel with heavy calcification and long segment of stenosis involving the midportion. Tight stenosis more distally as it bifurcates into PDA and PLV. There are [id number] collaterals to the distal RCA. Left main coronary artery appears calcified but free of stenosis, divides into left anterior descending and circumflex. Circumflex coronary artery is nondominant. LAD shows moderate stenosis involving midportion. Patient subsequently underwent atherectomy RCA, shockwave lithotripsy angioplasty with balloon and PCI proximal to mid RCA with overlapping stents. Plan for aggressive risk factor modification. Patient started on Brilinta and continued on aspirin. Patient denies having any chest pain or shortness of breath at this time. Breathing is easier. Blood pressure 95/46, heart rate in the 70s, pulse ox 96% on 2 L nasal cannula. Repeat creatinine 0.58. Repeat EKG reviewed. 07/11 She denies have any chest pain but she does feel shortness of breath. Patient is on all oral cardiac medications. Repeat blood work reveals hemoglobin of 9.4. Sodium 136, potassium 3.6, BUN 20 creatinine 0.56. AST 107, ALT 37. Blood pressure 125/69, heart rate 58. Room air pulse ox was 89% and patient returned to 2 L nasal cannula. Patient is returning to [facility]. Patient has been advised that she is cleared for discharge and may follow-up in the [place] office with Dr. Mick Hou. Echocardiogram reveals EF of 50%, mild mitral digitation, mild to moderate tricuspid regurgitation. 07/12 Patient remains in isolation for RSV. There is a new consult added for pulmonary medicine patient has been started on IV Solu-Medrol, inhaled steroids and nebulizers. Heart rate has been on the lower side and parameters will be placed on beta-gabi. Blood pressure 143/65, pulse ox 90% on 2 L. Repeat blood work reveals hemoglobin 9.5. Potassium 3.7, BUN 14 creatinine 0.6. 07/13 Breathing status seems to be improved today from yesterday. She is complaining of back pain. No chest pain. Blood pressure 160/74, heart rate 62, pulse ox 97% on 2 L nasal cannula. No repeat lab work available for today. 07/14 Patient's breathing is better today. She is anxious to get back to her [facility]. Yesterday we increase losartan to 50 mg for blood pressure control. This morning blood pressure 162/69, heart rate in the 60s, pulse ox 94% on 3 L. Physical examination: Gen: This is a 73-year-old female. She appears to be in no acute distress. VS: reviewed HEENT: Head is atraumatic, normocephalic. Pupils equal, round. Sclerae is anicteric. LUNGS: Diminished breath sounds. No intercostal retractions. HEART: Regular rate and rhythm. No murmur. EXTREMITIES: Mild pedal edema. No calf tenderness. NEUROLOGICAL: Patient is awake, alert. Assessment: Non-ST elevated myocardial infarction status post cardiac catheterization and stent RCA x 2 RSV Hematuria on UA Hypertension Hyperlipidemia Previous CVA with right-sided weakness Seizure disorder Gastroesophageal reflux disease Hypothyroidism. Plan: Continue patient on aspirin 81 mg daily, atorvastatin 40 mg at bedtime, d/c Plavix 75 mg daily Continue on Brilinta 90 mg twice daily Increase losartan to 75 mg daily for blood pressure control At the time of patient's discharge, she may follow-up in the [place] office with Dr. Mick Hou. Nurse practitioner note has been reviewed, I agree with documented findings and plan of care. Patient was seen and examined. Objective - Vital Signs Vital signs: Vital Signs Temp 98.0 F 07/13/23 20:00 Pulse 64 07/14/23 04:00 Resp 16 07/14/23 04:00 BP 162/69 07/14/23 04:00 Pulse Ox 94 L 07/14/23 04:00 FiO2 Intake & Output 07/13/23 07/14/23 07/14/23 18:59 06:59 18:59 Intake Total 476 Output Total 252 302 Balance 224 -302 Intake: Oral 476 Output: Urine 250 300 Stool 2 2 Other: Voiding Method External Catheter External Catheter - Labs CBC & Chem 7: 07/13/23 07:09 07/13/23 07:09 Labs: Abnormal Lab Results - Last 24 Hours (Table) 07/13/23 07/13/23 07/13/23 Range/Units 07:09 07:09 11:44 WBC 2.6 L (3.8-10.6) k/uL RBC 3.19 L (3.80-5.40) m/uL Hgb 10.1 L (11.4-16.0) gm/dL Hct 31.0 L (34.0-46.0) % Plt Count 131 L (150-450) k/uL Lymphocytes # (Manual) 0.81 L (1.0-4.8) k/uL Chloride 111 H (98-107) mmol/L Creatinine 0.43 L (0.52-1.04) mg/dL Glucose 213 H (74-99) mg/dL POC Glucose (mg/dL) 197 H (70-110) mg/dL Calcium 7.6 L (8.4-10.2) mg/dL AST 46 H (14-36) U/L Total Protein 5.3 L (6.3-8.2) g/dL Albumin 2.7 L (3.5-5.0) g/dL 02/07/13/23 07/14/23 Range/Units 16:40 20:04 06:13 WBC (3.8-10.6) k/uL RBC (3.80-5.40) m/uL Hgb (11.4-16.0) gm/dL Hct (34.0-46.0) % Plt Count (150-450) k/uL Lymphocytes # (Manual) (1.0-4.8) k/uL Chloride (98-107) mmol/L Creatinine (0.52-1.04) mg/dL Glucose (74-99) mg/dL POC Glucose (mg/dL) 305 H 299 H 230 H (70-110) mg/dL Calcium (8.4-10.2) mg/dL AST (14-36) U/L Total Protein (6.3-8.2) g/dL Albumin (3.5-5.0) g/dL Microbiology - Last 24 Hours (Table) 07/08/23 22:15 Blood Culture - Final Blood
--- NOTE | 2023-07-14 10:57 | P.PN ---
Subjective Progress Note Date: 07/13/23 Principal diagnosis: Reason for follow-up is diarrhea and flu Patient is a 73-year-old female presenting to the hospital as a transfer from [facility] where the patient presented because of feeling sick and was having vomiting, patient did have a CT at that facility concerning for possible left lower lobe infiltrate patient was subsequently transferred to [facility] for further evaluation on presentation to the hospital she did have a low-grade fever 100.3 F patient tested positive for influenza A the patient also have a PCI to the proximal and mid RCA infectious is consulted because of low-grade fever and diarrhea. On today's evaluation that is 07/13/2023, Patient is afebrile patient is currently on 2 L nasal cannula oxygen complaining of some shortness of breath, the patient denies any chest pain did have a cough but not bringing up any sp utum, the patient denies any nausea vomiting did not have any abdominal pain and no diarrhea Patient did have white count of 2.6, creatinine 0.43 procalcitonin 0.09, chest x-ray moderate cardiomegaly with interstitial opacity correlate for bronchitis, atypical pneumonia or pulmonary vascular congestion Objective - Vital Signs Vital signs: Vital Signs Temp 98.7 F 07/13/23 04:00 Pulse 62 07/13/23 04:00 Resp 18 07/13/23 04:00 BP 160/74 07/13/23 04:00 Pulse Ox 97 07/13/23 04:00 FiO2 Intake & Output 07/12/23 07/13/23 07/13/23 18:59 06:59 18:59 Output Total 1 1 Balance -1 -1 Output: Stool 1 1 Other: Voiding Method External Catheter External Catheter # Voids 1 - Exam GENERAL DESCRIPTION: An elderly female lying in bed in no distress RESPIRATORY SYSTEM: Unlabored breathing , decreased breath sounds at bases HEART: S1 S2 regular rate and rhythm , ABDOMEN: Soft , no tenderness EXTREMITIES: No edema feet - Labs CBC & Chem 7: 07/13/23 07:09 07/13/23 07:09 Labs: Abnormal Lab Results - Last 24 Hours (Table) 07/12/23 07/12/23 07/13/23 Range/Units 16:42 20:04 06:18 WBC (3.8-10.6) k/uL RBC (3.80-5.40) m/uL Hgb (11.4-16.0) gm/dL Hct (34.0-46.0) % Plt Count (150-450) k/uL Chloride (98-107) mmol/L Creatinine (0.52-1.04) mg/dL Glucose (74-99) mg/dL POC Glucose (mg/dL) 175 H 149 H 206 H (70-110) mg/dL Calcium (8.4-10.2) mg/dL AST (14-36) U/L Total Protein (6.3-8.2) g/dL Albumin (3.5-5.0) g/dL 07/13/23 07/13/23 Range/Units 07:09 07:09 WBC 2.6 L (3.8-10.6) k/uL RBC 3.19 L (3.80-5.40) m/uL Hgb 10.1 L (11.4-16.0) gm/dL Hct 31.0 L (34.0-46.0) % Plt Count 131 L (150-450) k/uL Chloride 111 H (98-107) mmol/L Creatinine 0.43 L (0.52-1.04) mg/dL Glucose 213 H (74-99) mg/dL POC Glucose (mg/dL) (70-110) mg/dL Calcium 7.6 L (8.4-10.2) mg/dL AST 46 H (14-36) U/L Total Protein 5.3 L (6.3-8.2) g/dL Albumin 2.7 L (3.5-5.0) g/dL Assessment and Plan (1) Influenza A Current Visit: Yes Status: Acute Code(s): J10.1 - FLU DUE TO OTH IDENT INFLUENZA VIRUS W OTH RESP MANIFEST SNOMED Code(s): 514837076 (2) Diarrhea Current Visit: Yes Status: Acute Code(s): R19.7 - DIARRHEA, UNSPECIFIED SNOMED Code(s): 55240135 Plan: 1patient presented to hospital initially feeling significant vomiting and this patient tested positive for influenza and has completed her Tamiflu therapy none did have a low-grade fever congested cough and concern for possible pneumonia, the patient chest x-ray PA lateral however suggested mostly pulmonary vascular congestion and the patient did have a normal procalcitonin we will make pneumonia to be less likely, hence will monitor the patient closely off an tibiotic therapy 2diarrhea seem to have resolved as the patient denied any further loose stools we will check a stool studies if the patient did have any further diarrhea Dictation was produced using [employer] dictation software. please excuse any grammatical, word or spelling errors. Time with Patient: Less than 30
[2023-07-14 11:56] LABS: Glucose,Whole Blood 198 mg/dL (70-110)
--- NOTE | 2023-07-14 14:23 | P.PN ---
Subjective Progress Note Date: 07/14/23 Principal diagnosis: Acute non-ST elevation myocardial infarction and acute COPD exacerbation This is a 73-year-old female, remote smoking history, no previous documented history of COPD, previous history of CVA and right-sided weakness, patient was seen initially few days ago at [facility], and she was seen mostly with symptoms of chest pain, and low-grade fever. Her temp was 100.3. Patient had also symptoms of some cough, occasional wheezing, and she tested positive for influenza A. Considering her EKG showed some T wave abnormalities in the lateral leads, patient was transferred to [facility], she was seen by cardiology on consultation, felt that the patient had non-ST elevation myocardial infarction. Patient underwent cardiac catheterization, and she was found to have 90% mid RCA stenosis. Patient underwent CSI rotational atherectomy, shockwave lithotripsy angioplasty of RCA with 3.0 mm balloon PCI of proximal to mid RCA with overlapping 3.0 x 33 mm and 3.0 x 23 mm xience dionne postdilated with a 3.0 noncompliant balloon, the recommendation was to treat patient post cardiac catheterization with dual antiplatelet, aspirin, Brilinta for 12 months patient continues to have intermittent episodes of cough and wheezing, chest x-ray on admission showed no evidence of active disease. Considering her persistent pulmonary symptoms cough wheezing shortness of breath, this consult was initiated Patient was reevaluated today on 07/13/2023, basically about the same, continues to have intermittent episodes of cough wheezing and shortness of breath. Patient is on bronchodilators, she is also on diuretics, and she is receiving treatment for her influenza infection, minimal improvement noted in the last 24 hours.WBC count today is 2.6 hemoglobin is 10 basic metabolic profile is normal renal profile is normal. Reevaluated today on 07/14/2023, patient continues to have some cough wheezing shortness of breath, not much of a change noted in the last 24 hours. Nonetheless patient is on room air, O2 sats 97%, blood pressure is 156/70, patient does not seem to be in distress however on physical examination she continues to have diffuse rhonchi and wheezes bilaterally Objective - Vital Signs Vital signs: Vital Signs Temp 97.9 F 07/14/23 12:00 Pulse 67 07/14/23 12:00 Resp 18 07/14/23 12:00 BP 156/70 07/14/23 12:00 Pulse Ox 97 07/14/23 12:00 FiO2 Intake & Output 07/13/23 07/14/23 07/14/23 18:59 06:59 18:59 Intake Total 476 Output Total 252 302 101 Balance 224 -302 -101 Intake: Oral 476 Output: Urine 250 300 100 Stool 2 2 1 Other: Voiding Method External Catheter External Catheter External Catheter - Exam general: The patient is awake and alert, in no distress, and does not appear acutely ill. Today she is on room air. Skin: Skin is warm and dry and no rashes or lesions are noted. Eye: Pupils are equal, round and reactive to light, extra-ocular movements are intact; there is normal conjunctiva bilaterally. Ears, nose, mouth and throat: There are moist mucous membranes and no oral lesions. Neck: The neck is supple, there is no tenderness or JVD. Cardiovascular: There is a regular rate and rhythm. No murmur, rub or gallop is appreciated. Respiratory: Rhonchi and wheezes noted bilaterally. Gastrointestinal: Soft, non-distended, non-tender abdomen without masses or organomegaly noted. There is no rebound or guarding present. Bowel sounds are unremarkable. Neurological: CN II-XII intact, Cranial nerves III through XII are intact. Chronic right-sided hemiparesis is noted Psychiatric: Normal mood and affect and normal mental status examination - Labs CBC & Chem 7: 07/13/23 07:09 07/13/23 07:09 Labs: Abnormal Lab Results - Last 24 Hours (Table) 07/13/23 07/13/23 07/13/23 Range/Units 07:09 16:40 20:04 Lymphocytes # (Manual) 0.81 L (1.0-4.8) k/uL POC Glucose (mg/dL) 305 H 299 H (70-110) mg/dL 07/14/23 07/14/23 Range/Units 06:13 11:54 Lymphocytes # (Manual) (1.0-4.8) k/uL POC Glucose (mg/dL) 230 H 198 H (70-110) mg/dL Microbiology - Last 24 Hours (Table) 07/08/23 22:15 Blood Culture - Final Blood Assessment and Plan Assessment: Impression: Acute non-ST elevation myocardial infarction Acute influenza infection/tracheobronchitis Acute exacerbation of COPD most likely triggered by influenza A tracheobronchitis History of CVA and right-sided weakness History of GERD fairly under control at present. History of hypothyroidism History of seizure disorder Ex-smoker, remote smoking history. Recommendation: Bronchodilators in the form of DuoNeb, Perforomist, and Pulmicort. Continue IV Solu-Medrol. Increase dose to 60 mg IV push every 6 hours since the patient is not showing significant improvement in her cough and wheeze Continue cardiac meds Procalcitonin level is basically within the normal range, stop antibiotics Will continue to follow. Time with Patient: Less than 30
[2023-07-14 16:05] LABS: Glucose,Whole Blood 307 mg/dL (70-110)
[2023-07-14] MEDS: methylPREDNISolone SOD SUCCI 40 MG/ML 1 ML VIAL IV SCH (17:10)
[2023-07-14 22:11] LABS: Glucose,Whole Blood 267 mg/dL (70-110)
[2023-07-15 05:57] LABS: Glucose,Whole Blood 222 mg/dL (70-110)
[2023-07-15 11:14] LABS: Glucose,Whole Blood 277 mg/dL (70-110)
--- NOTE | 2023-07-15 11:33 | P.PN ---
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 She has a past medical history of hypertension, hyperlipidemia, previous CVA with right-sided weakness, seizure disorder, gastroesophageal reflux disease, hypothyroidism. We have been asked to evaluate the patient for non-ST elevated myocardial infarction. Patient presented to the emergency center due to increasing shortness of breath EKG sinus rhythm 66 bpm Chest x-ray: No acute findings. WC 614, hemoglobin 10.7, platelet count 139. INR 1.2. Troponin 12.3, 13.6, 14.5. Sodium 137, potassium 4.3, BUN 34 creatinine 0.72. Blood sugar 94. Lactic acid 1.3. Magnesium 1.8. AST 171, ALT 49. Triglycerides 82, cholesterol 97, LDL 35, HDL 45. Urinalysis revealed large blood. RBCs at 171. Influenza A detected. Influenza B, RSV, COVID-19 not detected. Home cardiac medications: Irbesartan 150 mg daily, Crestor 10 mg at bedtime, patient also on levothyroxine 75 mcg daily. Echocardiogram 12/07/2019 revealed EF of 55 to 60%, mild concentric left ventricular hypertrophy. Mild aortic valve sclerosis. Mild regurgitation. Mild to moderate tricuspid regurgitation. Mild to moderate pulmonary hyp ertension. 07/10 Yesterday, patient underwent cardiac catheterization with Dr. Mick Hou which revealed right coronary artery is large dominant vessel with heavy calcification and long segment of stenosis involving the midportion. Tight stenosis more distally as it bifurcates into PDA and PLV. There are [id number] collaterals to the distal RCA. Left main coronary artery appears calcified but free of stenosis, divides into left anterior descending and circumflex. Circumflex coronary artery is nondominant. LAD shows moderate stenosis involving midportion. Patient subsequently underwent atherectomy RCA, shockwave lithotripsy angioplasty with balloon and PCI proximal to mid RCA with overl apping stents. Plan for aggressive risk factor modification. Patient started on Brilinta and continued on aspirin. Patient denies having any chest pain or shortness of breath at this time. Breathing is easier. Blood pressure 95/46, heart rate in the 70s, pulse ox 96% on 2 L nasal cannula. Repeat creatinine 0.58. Repeat EKG reviewed. 07/11 She denies have any chest pain but she does feel shortness of breath. Patient is on all oral cardiac medications. Repeat blood work reveals hemoglobin of 9.4. Sodium 136, potassium 3.6, BUN 20 creatinine 0.56. AST 107, ALT 37. Blood pressure 125/69, heart rate 58. Room air pulse ox was 89% and patient returned to 2 L nasal cannula. Patient is returning to [facility]. Patient has been advised that she is cleared for discharge and may follow-up in the [place] office with Dr. Mick Hou. Echocardiogram reveals EF of 50%, mild mitral digitation, mild to moderate tricuspid regurgitation. 07/12 Patient remains in isolation for RSV. There is a new consult added for pulmonary medicine patient has been started on IV Solu-Medrol, inhaled steroids and nebulizers. Heart rate has been on the lower side and parameters will be placed on beta-gabi. Blood pressure 143/65, pulse ox 90% on 2 L. Repeat blood work reveals hemoglobin 9.5. Potassium 3.7, BUN 14 creatinine 0.6. 07/13 Breathing status seems to be improved today from yesterday. She is complaining of back pain. No chest pain. Blood pressure 160/74, heart rate 62, pulse ox 97% on 2 L nasal cannula. No repeat lab work available for today. 07/14 Patient's breathing is better today. She is anxious to get back to her halfway. Yesterday we increase losartan to 50 mg for blood pressure control. This morning blood pressure 162/69, heart rate in the 60s, pulse ox 94% on 3 L. 07/15/2023 Patient examined this morning at the bedside. Patient denies any chest pain or pressure. She denies any shortness of breath. Vital signs are stable. PHYSICAL EXAM: VITAL SIGNS: Reviewed. GENERAL: Well-developed in no acute distress. NECK: Supple. No JVD or thyromegaly LUNGS: Respirations even and unlabored. Lungs essentially clear to auscultation bilaterally. HEART: Regular rate and rhythm. S1 and S2 heard. EXTREMITIES: Normal range of motion. No clubbing or cyanosis. Peripheral pulses intact. No lower extremity edema ASSESSMENT: Non-ST elevated myocardial infarction status post cardiac catheterization and stent RCA x 2 RSV Hematuria on UA Hypertension Hyperlipidemia Previous CVA with right-sided weakness Seizure disorder Gastroesophageal reflux disease Hypothyroidism PLAN: Continue current cardiac medications Patient is currently stable from a cardiac perspective with no further inpatient recommendations We will follow on an as-needed basis. Please call with questions or concerns. Nurse practitioner note has been reviewed by physician. Signing provider agrees with the documented findings, assessment, and plan of care documented by PMO MANAGER as a scribe. Objective - Vital Signs Vital signs: Vital Signs Temp 98.3 F 07/15/23 10:01 Pulse 67 07/15/23 10:01 Resp 22 07/15/23 10:01 BP 146/67 07/15/23 10:01 Pulse Ox 93 L 07/15/23 10:01 FiO2 Intake & Output 07/14/23 07/15/23 07/15/23 18:59 06:59 18:59 Intake Total 20 Output Total 102 650 200 Balance -102 -650 -180 Weight 68 kg Intake: IV 20 Invasive Line 1 10 Invasive Line 2 10 Output: Urine 100 650 200 Stool 2 Other: Voiding Method External Catheter External Catheter External Catheter - Labs CBC & Chem 7: 07/13/23 07:09 07/13/23 07:09 Labs: Abnormal Lab Results - Last 24 Hours (Table) 07/14/23 07/14/23 07/14/23 Range/Units 11:54 16:03 22:09 POC Glucose (mg/dL) 198 H 307 H 267 H (70-110) mg/dL 07/15/23 07/15/23 Range/Units 05:55 11:13 POC Glucose (mg/dL) 222 H 277 H (70-110) mg/dL
--- NOTE | 2023-07-15 11:35 | P.PN ---
Subjective Progress Note Date: 07/14/23 Principal diagnosis: Reason for follow-up is diarrhea and flu Patient is a 73-year-old female presenting to the hospital as a transfer from [facility] where the patient presented because of feeling sick and was having vomiting, patient did have a CT at that facility concerning for possible left lower lobe infiltrate patient was subsequently transferred to [facility] for further evaluation on presentation to the hospital she did have a low-grade fever 100.3 F patient tested positive for influenza A the patient also have a PCI to the proximal and mid RCA infectious is consulted because of low-grade fever and diarrhea. On today's evaluation that is 07/14/2023,the patient denies any fever or any chills, patient is breathing comfortably on 2 L nasal cannula oxygen, the patient denies chest pain shortness of breath and no significant cough, patient denies abdominal pain, no nausea vomiting and denies having diarrhea. No new labs has been obtained today, blood culture has been negative Objective - Vital Signs Vital signs: Vital Signs Temp 98.0 F 07/13/23 20:00 Pulse 64 07/14/23 04:00 Resp 16 07/14/23 04:00 BP 162/69 07/14/23 04:00 Pulse Ox 94 L 07/14/23 04:00 FiO2 Intake & Output 07/13/23 07/14/23 07/14/23 18:59 06:59 18:59 Intake Total 476 Output Total 252 302 100 Balance 224 -302 -100 Intake: Oral 476 Output: Urine 250 300 100 Stool 2 2 Other: Voiding Method External Catheter External Catheter - Exam GENERAL DESCRIPTION: An elderly female lying in bed in no distress RESPIRATORY SYSTEM: Unlabored breathing , decreased breath sounds at bases HEART: S1 S2 regular rate and rhythm , ABDOMEN: Soft , no tenderness EXTREMITIES: No edema feet - Labs CBC & Chem 7: 07/13/23 07:09 07/13/23 07:09 Labs: Abnormal Lab Results - Last 24 Hours (Table) 07/13/23 07/13/23 07/13/23 Range/Units 07:09 11:44 16:40 Lymphocytes # (Manual) 0.81 L (1.0-4.8) k/uL POC Glucose (mg/dL) 197 H 305 H (70-110) mg/dL 07/13/23 07/14/23 Range/Units 20:04 06:13 Lymphocytes # (Manual) (1.0-4.8) k/uL POC Glucose (mg/dL) 299 H 230 H (70-110) mg/dL Microbiology - Last 24 Hours (Table) 07/08/23 22:15 Blood Culture - Final Blood Assessment and Plan (1) Diarrhea Current Visit: Yes Status: Acute Code(s): R19.7 - DIARRHEA, UNSPECIFIED SNOMED Code(s): 16426871 (2) Influenza A Current Visit: Yes Status: Acute Code(s): J10.1 - FLU DUE TO OTH IDENT INFLUENZA VIRUS W OTH RESP MANIFEST SNOMED Code(s): 896008598 Plan: 1patient presented to hospital initially feeling significant vomiting and this patient tested positive for influenza and has completed her Tamiflu therapy none did have a low-grade fever congested cough and concern for possible pneumonia, the patient chest x-ray PA lateral however suggested mostly pulmonary vascular congestion and the patient did have a normal procalcitonin we will make pneumonia to be less likely, no need for antibiotic therapy at this point 2diarrhea seem to have resolved as the patient denied any further loose stools and the patient will monitor closely Dictation was produced using [employer] dictation software. please excuse any grammatical, word or spelling errors. Time with Patient: Less than 30
--- NOTE | 2023-07-15 11:36 | P.PN ---
Subjective Progress Note Date: 07/15/23 Principal diagnosis: Reason for follow-up is diarrhea and flu Patient is a 73-year-old female presenting to the hospital as a transfer from [facility] where the patient presented because of feeling sick and was having vomiting, patient did have a CT at that facility concerning for possible left lower lobe infiltrate patient was subsequently transferred to [facility] for further evaluation on presentation to the hospital she did have a low-grade fever 100.3 F patient tested positive for influenza A the patient also have a PCI to the proximal and mid RCA infectious is consulted because of low-grade fever and diarrhea. On today's evaluation that is 07/15/2023,the patient remains to be afebrile, patient is breathing comfortably on 2 L nasal cannula oxygen, the patient denies chest pain shortness of breath did have occasional dry cough patient denies abdominal pain, no nausea vomiting and denies having diarrhea. Feeling better wants to go home No new labs has been obtained today, blood culture has been negative Objective - Vital Signs Vital signs: Vital Signs Temp 98.3 F 07/15/23 10:01 Pulse 67 07/15/23 10:01 Resp 22 07/15/23 10:01 BP 146/67 07/15/23 10:01 Pulse Ox 93 L 07/15/23 10:01 FiO2 Intake & Output 07/14/23 07/15/23 07/15/23 18:59 06:59 18:59 Intake Total 20 Output Total 102 650 200 Balance -102 -650 -180 Weight 68 kg Intake: IV 20 Invasive Line 1 10 Invasive Line 2 10 Output: Urine 100 650 200 Stool 2 Other: Voiding Method External Catheter External Catheter External Catheter - Exam GENERAL DESCRIPTION: An elderly female lying in bed in no distress RESPIRATORY SYSTEM: Unlabored breathing , decreased breath sounds at bases HEART: S1 S2 regular rate and rhythm , ABDOMEN: Soft , no tenderness EXTREMITIES: No edema feet - Labs CBC & Chem 7: 07/13/23 07:09 07/13/23 07:09 Labs: Abnormal Lab Results - Last 24 Hours (Table) 07/14/23 07/14/23 07/14/23 Range/Units 11:54 16:03 22:09 POC Glucose (mg/dL) 198 H 307 H 267 H (70-110) mg/dL 02/19/24 02/19/24 Range/Units 05:55 11:13 POC Glucose (mg/dL) 222 H 277 H (70-110) mg/dL Assessment and Plan (1) Diarrhea Current Visit: Yes Status: Acute Code(s): R19.7 - DIARRHEA, UNSPECIFIED SNOMED Code(s): 05698809 (2) Influenza A Current Visit: Yes Status: Acute Code(s): J10.1 - FLU DUE TO OTH IDENT INFLUENZA VIRUS W OTH RESP MANIFEST SNOMED Code(s): 394825462 Plan: 1patient presented to hospital initially feeling significant vomiting and this patient tested positive for influenza and has completed her Tamiflu therapy none did have a low-grade fever congested cough and concern for possible pneumonia, the patient chest x-ray PA lateral however suggested mostly pulmonary vascular congestion and the patient did have a normal procalcitonin we will make pneumonia to be less likely, so far patient is doing well off antibiotic therapy hence recommending no antibiotic on discharge 2diarrhea seem to have resolved as the patient denied any further loose stools and the patient will monitor closely Dictation was produced using [employer] dictation software. please excuse any gramm atical, word or spelling errors. Time with Patient: Less than 30
--- NOTE | 2023-07-15 13:07 | P.PN ---
Subjective Progress Note Date: 07/15/23 Principal diagnosis: Pneumonia. Acute non-ST elevation myocardial infarction and acute COPD exacerbation This is a 73-year-old female, remote smoking history, no previous documented history of COPD, previous history of CVA and right-sided weakness, patient was seen initially few days ago at [facility], and she was seen mostly with symptoms of chest pain, and low-grade fever. Her temp was 100.3. Patient had also symptoms of some cough, occasional wheezing, and she tested positive for influenza A. Considering her EKG showed some T wave abnormalities in the latera l leads, patient was transferred to [facility], she was seen by cardiology on consultation, felt that the patient had non-ST elevation myocardial infarction. Patient underwent cardiac catheterization, and she was found to have 90% mid RCA stenosis. Patient underwent CSI rotational atherectomy, shockwave lithotripsy angioplasty of RCA with 3.0 mm balloon PCI of proximal to mid RCA with overlapping 3.0 x 33 mm and 3.0 x 23 mm xience dionne postdilated with a 3.0 noncompliant balloon, the recommendation was to treat patient post cardiac catheterization with dual antiplatelet, aspirin, Brilinta for 12 months patient continues to have intermittent episodes of cough and wheezing, chest x-ray on admission showed no evidence of active disease. Considering her persistent pulmonary symptoms cough wheezing shortness of breath, this consult was initiated Patient was reevaluated today on 07/13/2023, basically about the same, continues to have intermittent episodes of cough wheezing and shortness of breath. Patient is on bronchodilators, she is also on diuretics, and she is receiving treatment for her influenza infection, minimal improvement noted in the last 24 hours.WBC count today is 2.6 hemoglobin is 10 basic metabolic profile is normal renal profile is normal. Reevaluated today on 07/14/2023, patient continues to have some cough wheezing shortness of breath, not much of a change noted in the last 24 hours. Nonetheless patient is on room air, O2 sats 97%, blood pressure is 156/70, patient does not seem to be in distress however on physical examination she continues to have diffuse rhonchi and wheezes bilaterally Progress note dated July 15, 2023. The patient is seen today in room 360. Currently, the patient is on 2 L of oxygen. She is not receiving any IV fluids. The patient was admitted with a diagnosis of non-ST segment elevation myocardial infarction, influenza infection, and COPD exacerbation. The patient Solu-Medrol will be converted to prednisone, and the solutions of both budesonide and formoterol will be converted to Symbicort. The patient would like to be discharged home. Current labs include a glucose of 277. Blood cultures are negative. No recent chest x- ray to report. Objective - Vital Signs Vital signs: Vital Signs Temp 98.3 F 07/15/23 10:01 Pulse 66 07/15/23 12:03 Resp 20 07/15/23 12:03 BP 138/60 07/15/23 12:03 Pulse Ox 96 07/15/23 12:03 FiO2 Intake & Output 07/14/23 07/15/23 07/15/23 18:59 06:59 18:59 Intake Total 20 Output Total 102 650 200 Balance -102 -650 -180 Weight 68 kg 68 kg Intake: IV 20 Invasive Line 1 10 Invasive Line 2 10 Output: Urine 100 650 200 Stool 2 Other: Voiding Method External Catheter External Catheter External Catheter - Exam No acute distress, oriented 3. Currently on 2 L of oxygen. No respiratory distress, or audible wheezing. No use of accessory muscles. HEENT examination is grossly unremarkable. Mucous membranes are moist. No oral lesions. Neck supple. Full range of motion. No adenopathy thyromegaly or neck vein distention. Cardiovascular examination reveals regular rhythm rate. S1-S2 normal. No S3 or S4. No discernible murmur noted. Heart sounds are distant. Heart rate 66 bpm. Lungs reveal mostly clear breath sounds. Minimal rhonchi. No wheezes or crackles. Breath sounds equal bilaterally. Saturations are 96% on 2 L. Abdomen soft bowel sounds are heard. No masses or tenderness. Extremities are intact. No cyanosis clubbing or edema. Skin is without rash or lesion. Neurologic examination is brief but nonfocal. - Labs CBC & Chem 7: 07/13/23 07:09 07/13/23 07:09 Labs: Abnormal Lab Results - Last 24 Hours (Table) 07/14/23 07/14/23 07/15/23 Range/Units 16:03 22:09 05:55 POC Glucose (mg/dL) 307 H 267 H 222 H (70-110) mg/dL 07/15/23 Range/Units 11:13 POC Glucose (mg/dL) 277 H (70-110) mg/dL Assessment and Plan Assessment: Acute non-ST segment elevation myocardial infarction. Acute influenza infection, with resultant tracheobronchitis. Acute COPD exacerbation. History of CVA with right-sided weakness. History of gastroesophageal reflux disease. History of hypothyroidism. History of seizure disorder. History of previous tobacco use. Plan: Plan dated July 15, 2023. The patient continues on appropriate medications. We will convert her Solu- Medrol to prednisone p.o. In addition, we will change your budesonide solution and formoterol solution, to Symbicort. Hopefully, in that regard, the patient can be discharged home soon. We will continue to follow the patient closely. Labs, x-rays, and medications are reviewed. The patient's overall prognosis remains guarded. No additional recommendations are made at this time. Time with Patient: Less than 30
[2023-07-15 13:15] VITALS: BMI 29.2
[2023-07-15 16:12] LABS: Glucose,Whole Blood 330 mg/dL (70-110)
--- NOTE | 2023-07-15 17:10 | P.PN ---
Subjective Progress Note Date: 07/15/23 Felipa Lubin, is a 73-year-old female who presented to [facility] emergency room with a chief complaint of chest pain, patient was transferred from the [facility] [place] emergency room. She was evaluated in the emergency room vital examination on presentation revealed a temperature of 100.3 pulse 71 respiration 18 and blood pressure 95/51 pulse ox 96% on 3 L nasal cannula Laboratory data reveals a white blood count of 7.8 hemoglobin 11.8 platelet count 137 BUN 34 creatinine 0.72 troponin level 12.3 influenza A PCR was positive Testing in the emergency room revealed EKG revealed sinus rhythm with T-wave abnormalities in the lateral leads. Chest x-ray revealed no acute findings in the chest Patient was admitted to medical floor for further evaluation and treatment. She was started on IV heparin, cardiology consultation was requested On 07/10/2023 patient was seen and examined on the medical floor she is alert and oriented 3 in no apparent distress, she is complaining of nausea otherwise she denies any complaints, there is no fever or chills no headache or dizziness no chest pain no shortness of breath no cough, no abdominal pain no diarrhea no blood in the stools no burning with urination no frequency or urgency and no hematuria. 07/11/2023 for patients alert and oriented 3. Patient underwent cardiac catheterization receiving 2 stents to the RCA. Repeat echocardiogram ordered. Patient remains on Tamiflu. Current vital signs temp 98, heart rate 57, respi ratory rate 18, blood pressure 119/60 fourth pulse ox 95% on 2 L. Patient denies chest pain or shortness breath. Patient denies nausea vomiting or diarrhea. Patient denies any urinary burning or frequency On 07/12/2023 patients alert and oriented 3. Patient still having some shortness of breath and coughing. Two-view chest x-ray ordered and pulmonary service is consulted. Current vital signs temp 98.5, heart rate 55, respiratory 20, blood pressure 143/65. Pulse ox 90% on 2 L. Patient denies chest pain. Patient denies nausea vomiting or diarrhea. Patient denies any urinary burning or frequency On 07/13/2023 patient was seen and examined on the medical floor she is alert and oriented 3 in no apparent distress, she is still complaining of shortness of breath cough and wheezing, otherwise she denies any complaints there is no fever or chills no headache or dizziness no chest pain no nausea or vomiting no abdominal pain no diarrhea and no urinary symptoms. Input from pulmonary and infectious disease was reviewed, chest x-ray reviewed, pro-calcitonin level is low at 0.09, no antibiotic prescribed. Patient was started on IV Solu-Medrol, will continue to monitor closely. On 07/14/2023 patients alert and oriented 3. Patient reports improvement overall cough shortness of breath. Patient remains on IV Solu-Medrol. Cardiology, pulmonary and infectious disease services are following. Current vital signs temp 97.7, heart rate 64, respiratory rate 18, blood pressure 150/60 with a pulse ox 94% on 2 L. Patient denies chest pain. Patient denies nausea vomiting or diarrhea. Patient denies any urinary frequency On 07/15/2023 patient was seen and examined on the medical floor she is alert and oriented 3 in no apparent distress, she is still complaining of shortness of breath cough and wheezing, otherwise she denies any complaints there is no fever or chills no headache or dizziness no chest pain no nausea or vomiting no abdominal pain no diarrhea and no urinary symptoms. Input from cardiology and pulmonary reviewed, discharge planning in progress. Possible transfer back to [facility] tomorrow. Objective - Vital Signs Vital signs: Vital Signs Temp 98.2 F 07/15/23 00:00 Pulse 71 07/15/23 04:00 Resp 18 07/15/23 04:00 BP 142/68 07/15/23 04:00 Pulse Ox 95 07/15/23 04:00 FiO2 Intake & Output 07/14/23 07/15/23 07/15/23 18:59 06:59 18:59 Output Total 102 650 Balance -102 -650 Weight 68 kg Output: Urine 100 650 Stool 2 Other: Voiding Method External Catheter External Catheter - Exam In general patient is alert and oriented x 3 in no distress HEENT head normocephalic and atraumatic Neck is supple no JVD no goiter no lymphadenopathy no carotid bruit Chest examination is clear to auscultation no crackles no wheezing Cardiac exam reveals regular heart sounds S1 and S2 no gallops no murmurs Abdomen is soft nontender no organomegaly with normal bowel sounds Extremity exam reveals no edema no cyanosis or clubbing Neurological examination reveals no gross focal deficits - Labs CBC & Chem 7: 07/13/23 07:09 07/13/23 07:09 Labs: Abnormal Lab Results - Last 24 Hours (Table) 07/14/23 07/14/23 07/14/23 Range/Units 11:54 16:03 22:09 POC Glucose (mg/dL) 198 H 307 H 267 H (70-110) mg/dL 07/15/23 Range/Units 05:55 POC Glucose (mg/dL) 222 H (70-110) mg/dL Microbiology - Last 24 Hours (Table) 07/08/23 22:15 Blood Culture - Final Blood Assessment and Plan Plan: Non-ST elevated myocardial infarction. Status post cardiac cath with stents RCA Acute influenza A infection Underlying history of hypertension Underlying history of hyperlipidemia Previous history of stroke with right sided weakness Underlying history of seizure disorder Underlying history of hypothyroidism Underlying history of gastroesophageal reflux disease At this time patient was started on IV heparin Home medications reviewed and reordered Cardiology consultation requested 2 view chest x-ray ordered, pulmonary service is consulted tamiflu was added to her medication regimen Will follow closely
[2023-07-15 20:23] LABS: Glucose,Whole Blood 158 mg/dL (70-110)
[2023-07-15] MEDS: SYMBICORT 160-4.5 MCG INHALER INHALATION SCH (20:55)
[2023-07-15 22:21] VITALS: RESP 18
[2023-07-16 06:04] LABS: Glucose,Whole Blood 110 mg/dL (70-110)
[2023-07-16] MEDS: predniSONE 10 MG TAB PO SCH (08:04)
[2023-07-16 08:32] VITALS: BP 149/64; PULSE 59; TEMP 97.7
--- NOTE | 2023-07-16 09:46 | P.DS ---
Providers Date of admission: 07/08/23 22:39 Expected date of discharge: 07/16/23 Attending physician: Katie Bailey Consults: 07/12/23 09:57 Consult Physician Routine Consulting Provider: Glenna Mckee Consult Reason/Comments: influenza Do you want consulting provider notified?: Yes 07/12/23 10:11 Consult Physician Routine Consulting Provider: Kedar Ramos Consult Reason/Comments: diarrhea, flu Do you want consulting provider notified?: Yes Primary care physician: Tracie Sams [facility] Course: Hospital course Non-ST elevated myocardial infarction. Status post cardiac cath with stents RCA Acute influenza A infection Underlying history of hypertension Underlying history of hyperlipidemia Previous history of stroke with right sided weakness Underlying history of seizure disorder Underlying history of hypothyroidism Underlying history of gastroesophageal reflux disease Discharge diagnosis Felipa Lubin, is a 73-year-old female who presented to [facility] emergency room with a chief complaint of chest pain, patient was transferred from the [facility] emergency room. She was evaluated in the emergency room vital examination on presentation revealed a temperature of 100.3 pulse 71 respiration 18 and blood pressure 95/51 pulse ox 96% on 3 L nasal cannula Laboratory data reveals a white blood count of 7.8 hemoglobin 11.8 platelet count 137 BUN 34 creatinine 0.72 troponin level 12.3 influenza A PCR was positive Testing in the emergency room revealed EKG revealed sinus rhythm with T-wave abnormalities in the lateral leads. Chest x-ray revealed no acute findings in the chest Patient was admitted to medical floor for further evaluation and treatment. She was started on IV heparin, cardiology consultation was requested On 07/10/2023 patient was seen and examined on the medical floor she is alert and oriented 3 in no apparent distress, she is complaining of nausea otherwise she denies any complaints, there is no fever or chills no headache or dizziness no chest pain no shortness of breath no cough, no abdominal pain no diarrhea no blood in the stools no burning with urination no frequency or urgency and no hematuria. 07/11/2023 for patients alert and oriented 3. Patient underwent cardiac catheterization receiving 2 stents to the RCA. Repeat echocardiogram ordered. Patient remains on Tamiflu. Current vital signs temp 98, heart rate 57, respiratory rate 18, blood pressure 119/60 fourth pulse ox 95% on 2 L. Patient denies chest pain or shortness breath. Patient denies nausea vomiting or diarrhea. Patient denies any urinary burning or frequency On 07/12/2023 patients alert and oriented 3. Patient still having some shortness of breath and coughing. Two-view chest x-ray ordered and pulmonary service is consulted. Current vital signs temp 98.5, heart rate 55, respiratory 20, blood pressure 143/65. Pulse ox 90% on 2 L. Patient denies chest pain. Patient denies nausea vomiting or diarrhea. Patient denies any urinary burning or frequency On 07/13/2023 patient was seen and examined on the medical floor she is alert and oriented 3 in no apparent distress, she is still complaining of shortness of breath cough and wheezing, otherwise she denies any complaints there is no fever or chills no headache or dizziness no chest pain no nausea or vomiting no abdominal pain no diarrhea and no urinary symptoms. Input from pulmonary and infectious disease was reviewed, chest x-ray reviewed, pro-calcitonin level is low at 0.09, no antibiotic prescribed. Patient was started on IV Solu-Medrol, will continue to monitor closely. On 07/14/2023 patients alert and oriented 3. Patient reports improvement overall cough shortness of breath. Patient remains on IV Solu-Medrol. Cardiology, pulmonary and infectious disease services are following. Current vital signs temp 97.7, heart rate 64, respiratory rate 18, blood pressure 150/60 with a pulse ox 94% on 2 L. Patient denies chest pain. Patient denies nausea vomiting or diarrhea. Patient denies any urinary frequency On 07/15/2023 patient was seen and examined on the medical floor she is alert and oriented 3 in no apparent distress, she is still complaining of shortness of breath cough and wheezing, otherwise she denies any complaints there is no fever or chills no headache or dizziness no chest pain no nausea or vomiting no abdominal pain no diarrhea and no urinary symptoms. Input from cardiology and pulmonary reviewed, discharge planning in progress. Possible transfer back to [facility] tomorrow. 07/16/2023 for patients alert and oriented 3. Patient denies chest pain or shortness of breath. Patient denies nausea vomiting or diarrhea. Patient denies any urinary burning or frequency referral. patient to be DC'd to [facility] facility today Patient Condition at Discharge: Stable Plan - Discharge Summary New Discharge Prescriptions: New Losartan [Cozaar] 75 mg PO DAILY tab Ipratropium-Albuterol Nebulize [Duoneb 0.5 mg-3 mg/3 ml Soln] 3 ml INHALATION RT-Q2H PRN each PRN Reason: Shortness Of Breath Or Wheezing Atorvastatin [Lipitor] 40 mg PO HS tab Metoprolol Tartrate [Lopressor] 12.5 mg PO BID tab predniSONE 30 mg PO DAILY 12 Days #14 tab Aspirin 81 mg PO DAILY tab Ticagrelor [Brilinta] 90 mg PO BID tab Ipratropium-Albuterol Nebulize [Duoneb 0.5 mg-3 mg/3 ml Soln] 3 ml INHALATION RT-QID each INSULIN ASPART (NovoLOG) [NovoLOG (formulary)] 0 unit SQ ACHS each Budesonide-Formot 160-4.5 Mcg [Symbicort 160-4.5 Mcg Inhaler] 2 puff INHALATION RT-BID each HYDROcodone/APAP 5-325MG [Norton 5-325] 1 each PO Q6H PRN 3 Days #12 tab PRN Reason: Pain Continue Levothyroxine Sodium [Synthroid] 75 mcg PO DAILY@0500 Ondansetron [Zofran] 4 mg PO Q6H PRN PRN Reason: Nausea And Vomiting Magnesium Hydroxide [Milk of Magnesia Concentrate] 7,200 mg PO Q48H PRN PRN Reason: Constipation Hydrocortisone Cream [Hydrocortisone 2.5% Cream] 1 applic TOPICAL BID PRN PRN Reason: INFLAMED LESIONS bisacodyL [Dulcolax] 10 mg RECTAL Q72H PRN PRN Reason: Constipation Benzocaine 20 % Gel [Orajel] 1 applic MM Q6H PRN PRN Reason: ORAL PAIN Acetaminophen Tab [Tylenol] 650 mg PO Q4H PRN PRN Reason: Fever And/ Or Pain Insulin Glargine/Lixisenatide [Soliqua 100 Unit-33 Mcg/ml Pen] 40 units SQ DAILY@0700 HYDROcodone/APAP 5-325MG [Norton 5-325] 1 tab PO Q6H PRN 3 Days #12 tab PRN Reason: Pain Ketoconazole 2% Cream [Nizoral 2%] 1 applic TOPICAL DAILY PRN PRN Reason: INFLAMED LESIONS Famotidine [Pepcid] 20 mg PO DAILY PRN PRN Reason: GERD Insulin Lispro [humaLOG Kwikpen] See Protocol SQ TID@0700,1100,1700 Insulin Lispro [humaLOG Kwikpen] 2 unit SQ TID@0700,1100,1700 metFORMIN HCL [Glucophage] 500 mg PO BID@050,1999 Polyvinyl Alcohol/Povidone [Clear Eyes Natural Tears Drop] 1 drop BOTH EYES BID@050,1999 buPROPion SR [Wellbutrin SR] 150 mg PO DAILY@0500 Divalproex Sprinkle [Depakote Sprinkle] 375 mg PO HS@1999 Pioglitazone [Actos] 15 mg PO DAILY@1100 ARIPiprazole [Abilify] 2 mg PO DAILY@050 Discontinued LORazepam [Ativan] 1 mg PO HS@1999 Rosuvastatin [Crestor] 10 mg PO HS@1999 Irbesartan [Avapro] 150 mg PO DAILY@1100 Discharge Medication List Levothyroxine Sodium [Synthroid] 75 mcg PO DAILY@05012/05/19 [History] ARIPiprazole [Abilify] 2 mg PO DAILY@49907/09/23 [History] Acetaminophen Tab [Tylenol] 650 mg PO Q4H PRN 07/09/23 [History] Benzocaine 20 % Gel [Orajel] 1 applic MM Q6H PRN 07/09/23 [History] Divalproex Sprinkle [Depakote Sprinkle] 375 mg PO HS@199907/09/23 [History] Famotidine [Pepcid] 20 mg PO DAILY PRN 07/09/23 [History] Hydrocortisone Cream [Hydrocortisone 2.5% Cream] 1 applic TOPICAL BID PRN 07/09/23 [History] Insulin Glargine/Lixisenatide [Soliqua 100 Unit-33 Mcg/ml Pen] 40 units SQ DAILY@0707/09/23 [History] Insulin Lispro [humaLOG Kwikpen] 2 unit SQ TID@0700,1100,1700 07/09/23 [History] Insulin Lispro [humaLOG Kwikpen] See Protocol SQ TID@0700,1100,1700 07/09/23 [History] Ketoconazole 2% Cream [Nizoral 2%] 1 applic TOPICAL DAILY PRN 07/09/23 [History] Magnesium Hydroxide [Milk of Magnesia Concentrate] 7,200 mg PO Q48H PRN 07/09/23 [History] Ondansetron [Zofran] 4 mg PO Q6H PRN 07/09/23 [History] Pioglitazone [Actos] 15 mg PO DAILY@1100 07/09/23 [History] Polyvinyl Alcohol/Povidone [Clear Eyes Natural Tears Drop] 1 drop BOTH EYES BID@499,199907/09/23 [History] bisacodyL [Dulcolax] 10 mg RECTAL Q72H PRN 07/09/23 [History] buPROPion SR [Wellbutrin SR] 150 mg PO DAILY@05007/09/23 [History] metFORMIN HCL [Glucophage] 500 mg PO BID@050,199907/09/23 [History] Aspirin 81 mg PO DAILY tab 07/16/23 [Rx] Atorvastatin [Lipitor] 40 mg PO HS tab 07/16/23 [Rx] Budesonide-Formot 160-4.5 Mcg [Symbicort 160-4.5 Mcg Inhaler] 2 puff INHALATION RT-BID each 07/16/23 [Rx] HYDROcodone/APAP 5-325MG [Norton 5-325] 1 each PO Q6H PRN 3 Days #12 tab 07/16/23 [Rx] HYDROcodone/APAP 5-325MG [Norton 5-325] 1 tab PO Q6H PRN 3 Days #12 tab 07/16/23 [Rx] INSULIN ASPART (NovoLOG) [NovoLOG (formulary)] 0 unit SQ ACHS each 07/16/23 [Rx] Ipratropium-Albuterol Nebulize [Duoneb 0.5 mg-3 mg/3 ml Soln] 3 ml INHALATION RT-Q2H PRN each 07/16/23 [Rx] Ipratropium-Albuterol Nebulize [Duoneb 0.5 mg-3 mg/3 ml Soln] 3 ml INHALATION RT-QID each 07/16/23 [Rx] Losartan [Cozaar] 75 mg PO DAILY tab 07/16/23 [Rx] Metoprolol Tartrate [Lopressor] 12.5 mg PO BID tab 07/16/23 [Rx] Ticagrelor [Brilinta] 90 mg PO BID tab 07/16/23 [Rx] predniSONE 30 mg PO DAILY 12 Days #14 tab 07/16/23 [Rx] Follow up Appointment(s)/Referral(s): Tracie Sams MD [Primary Care Provider] - 1-2 days Pio Hou MD [STAFF PHYSICIAN] - 1 Week Patient Instructions/Handouts: *Surgery [facility] - After Heart Catheterization - Gl Accountant Instructions, Moderate Sedation (DC), After Radial Heart Catheterization (GEN) Activity/Diet/Wound Care/Special Instructions: NO METFORMIN FOR 2 DAYS. Discharge Disposition: TRANSFER TO SNF/ECF
--- NOTE | 2023-07-16 10:41 | P.PN ---
Subjective Progress Note Date: 07/16/23 Principal diagnosis: Pneumonia. Acute non-ST elevation myocardial infarction and acute COPD exacerbation This is a 73-year-old female, remote smoking history, no previous documented history of COPD, previous history of CVA and right-sided weakness, patient was seen initially few days ago at [facility], and she was seen mostly with symptoms of chest pain, and low-grade fever. Her temp was 100.3. Patient had also symptoms of some cough, occasional wheezing, and she tested positive for influenza A. Considering her EKG showed some T wave abnormalities in the latera l leads, patient was transferred to [facility], she was seen by cardiology on consultation, felt that the patient had non-ST elevation myocardial infarction. Patient underwent cardiac catheterization, and she was found to have 90% mid RCA stenosis. Patient underwent CSI rotational atherectomy, shockwave lithotripsy angioplasty of RCA with 3.0 mm balloon PCI of proximal to mid RCA with overlapping 3.0 x 33 mm and 3.0 x 23 mm xience dionne postdilated with a 3.0 noncompliant balloon, the recommendation was to treat patient post cardiac catheterization with dual antiplatelet, aspirin, Brilinta for 12 months patient continues to have intermittent episodes of cough and wheezing, chest x-ray on admission showed no evidence of active disease. Considering her persistent pulmonary symptoms cough wheezing shortness of breath, this consult was initiated Patient was reevaluated today on 07/13/2023, basically about the same, continues to have intermittent episodes of cough wheezing and shortness of breath. Patient is on bronchodilators, she is also on diuretics, and she is receiving treatment for her influenza infection, minimal improvement noted in the last 24 hours.WBC count today is 2.6 hemoglobin is 10 basic metabolic profile is normal renal profile is normal. Reevaluated today on 07/14/2023, patient continues to have some cough wheezing shortness of breath, not much of a change noted in the last 24 hours. Nonetheless patient is on room air, O2 sats 97%, blood pressure is 156/70, patient does not seem to be in distress however on physical examination she continues to have diffuse rhonchi and wheezes bilaterally Progress note dated July 15, 2023. The patient is seen today in room 360. Currently, the patient is on 2 L of oxygen. She is not receiving any IV fluids. The patient was admitted with a diagnosis of non-ST segment elevation myocardial infarction, influenza infection, and COPD exacerbation. The patient Solu-Medrol will be converted to prednisone, and the solutions of both budesonide and formoterol will be converted to Symbicort. The patient would like to be discharged home. Current labs include a glucose of 277. Blood cultures are negative. No recent chest x- ray to report. Progress note dated July 16, 2023. 73-year-old female seen today in room 360. Currently, the patient is on oxygen at 2 L. She is not receiving any IV fluids. The patient has now been in the hospital for 8 days. The patient is hopefully going to be discharged soon. She was initially admitted with a diagnosis of non-ST segment elevation myocardial infarction, influenza, and COPD exacerbation. Yesterday, we changed her Solu- Medrol to prednisone, and, changed to budesonide, and formoterol solutions to Symbicort. No new labs today other than a glucose of 110. Objective - Vital Signs Vital signs: Vital Signs Temp 97.7 F 07/16/23 07:55 Pulse 56 L 07/16/23 07:59 Resp 18 07/16/23 07:55 BP 149/64 07/16/23 07:55 Pulse Ox 97 07/16/23 07:55 FiO2 2 07/16/23 07:52 Intake & Output 07/15/23 07/16/23 07/16/23 18:59 06:59 18:59 Intake Total 620 10 20 Output Total 750 0 Balance -130 10 20 Weight 68 kg 75 kg Intake: IV 20 10 20 0.9 10 Invasive Line 1 10 10 Invasive Line 2 10 10 Oral 600 Output: Urine 750 0 Post Void Residual 0 Other: Voiding Method External Catheter External Catheter - Exam No acute distress, oriented 3. Currently on 2 L of oxygen. No respiratory distress, or audible wheezing. No use of accessory muscles. HEENT examination is grossly unremarkable. Mucous membranes are moist. No oral lesions. Neck supple. Full range of motion. No adenopathy thyromegaly or neck vein distention. Cardiovascular examination reveals regular rhythm rate. S1-S2 normal. No S3 or S4. No discernible murmur noted. Heart sounds are distant. Heart rate 56 bpm. Lungs reveal mostly clear breath sounds. Minimal rhonchi. No wheezes or crackles. Breath sounds equal bilaterally. Saturations are 97 % on 2 L. Abdomen soft bowel sounds are heard. No masses or tenderness. Extremities are intact. No cyanosis clubbing or edema. Skin is without rash or lesion. Neurologic examination is brief but nonfocal. - Labs CBC & Chem 7: 07/13/23 07:09 07/13/23 07:09 Labs: Abnormal Lab Results - Last 24 Hours (Table) 07/15/23 07/15/23 07/15/23 Range/Units 11:13 16:10 20:20 POC Glucose (mg/dL) 277 H 330 H 158 H (70-110) mg/dL Assessment and Plan Assessment: Acute non-ST segment elevation myocardial infarction. Acute influenza infection, with resultant tracheobronchitis. Acute COPD exacerbation. History of CVA with right-sided weakness. History of gastroesophageal reflux disease. History of hypothyroidism. History of seizure disorder. History of previous tobacco use. Plan: Plan dated July 15, 2023. The patient continues on appropriate medications. We will convert her Solu- Medrol to prednisone p.o. In addition, we will change your budesonide solution and formoterol solution, to Symbicort. Hopefully, in that regard, the patient can be discharged home soon. We will continue to follow the patient closely. Labs, x-rays, and medications are reviewed. The patient's overall prognosis remains guarded. No additional recommendations are made at this time. Plan dated July 24, 2023. The patient appears to be doing relatively well. She appears relatively stable. The patient is hoping to be discharged soon. Her examination was not too remarkable. She was in normal sinus rhythm, heart sounds were distant. There were some basilar crackles. There was no lower extremity edema. The patient's saturations on 2 L are 97%. Labs, x-rays, and medications are reviewed. The patient's overall prognosis remains guarded. We will continue to follow the patient, make recommendations along the way, should she not be discharged. Time with Patient: Less than 30
--- NOTE | 2023-07-18 16:03 | CDI ---
Documentation Clarification Form Date: 07/18/2023 03:46:59 PM From: Rajwinder Gallego RN, CCDS Email: [email or web address] Admit Date: 07/08/2023 10:39:00 PM Patient Name: Felipa Lubin Visit Number: [id number] Discharge Date: 07/16/2023 11:17:00 AM ATTENTION: The Clinical Documentation Specialists (CDI) and [facility] Coding Staff appreciate your assistance in clarifying documentation. Please respond to the clarification below the line at the bottom and electronically sign. The CDI & [facility] Coding staff will review the response and follow-up if needed. Please note: Queries are made part of the Legal Health Record. If you have any questions, please contact the author of this message via ITS. Dr. Katie Bailey Your patient received IV Lasix on 07/13. Please clarify what condition/diagnosis was being treated. History/Risk Factors: DM, HLD, HTN, thyroid disorder. Presented from other hospital for CP, elevated troponins and NSTEMI. S/P PCI on 07/09. Clinical indicators: 07/08 CXR: No acute findings in the chest 07/11 Echo: Mildly increased left ventricular wall thickness. Left ventricular ejection fraction 50%. Mild mitral regurgitation. Mild to moderate tricuspid regurgitation. 07/12 CXR: Moderate cardiomegaly with interstitial opacity. Correlate for bronchitis, atypical pneumonias, or mild pulmonary vascular congestion. 07/13 Pulmonary: "Patient is on bronchodilators, she is also on diuretics, and she is receiving treatment for her influenza infection, minimal improvement noted in the last 24 hours." Treatment: IV Lasix 40mg x1 on 07/13; intermittent supplemental oxygen What diagnosis were you treating with IV Lasix? [ xxxx ] Acute pulmonary edema [ ] No additional diagnosis [ ] Other, please specify [ ] Unable to determine MTDD
== END 2023-07-16 11:17 | DRG 323 ==
LOC: EC 21:29 → 3SCARD 22:39
PROVIDERS: ADMIT Internal Medicine; ATTEND Internal Medicine
PROC: 4A023N7 Measurement of Cardiac Sampling and Pressure, Left Heart, Percutaneous Approach (ICD-10-PCS; 2023-07-09)
PROC: B2111ZZ Fluoroscopy of Multiple Coronary Arteries using Low Osmolar Contrast (ICD-10-PCS; 2023-07-09)
PROC: 027035Z Dilation of Coronary Artery, One Artery with Two Drug-eluting Intraluminal Devices, Percutaneous Approach (ICD-10-PCS; principal; 2023-07-09 08:30)
PROC: 02F03ZZ Fragmentation in Coronary Artery, One Artery, Percutaneous Approach (ICD-10-PCS; 2023-07-09 08:30)
PROC: 02C03Z7 Extirpation of Matter from Coronary Artery, One Artery, Orbital Atherectomy Technique, Percutaneous Approach (ICD-10-PCS; 2023-07-09 08:30)
PROC: 8E0ZXY6 Isolation (ICD-10-PCS; 2023-07-12)
DX: I21.4 Non-ST elevation (NSTEMI) myocardial infarction (principal); J81.0 Acute pulmonary edema; I69.351 Hemiplegia and hemiparesis following cerebral infarction affecting right dominant side; J44.1 Chronic obstructive pulmonary disease with (acute) exacerbation; J44.0 Chronic obstructive pulmonary disease with (acute) lower respiratory infection; I27.20 Pulmonary hypertension, unspecified; B97.4 Respiratory syncytial virus as the cause of diseases classified elsewhere; E11.51 Type 2 diabetes mellitus with diabetic peripheral angiopathy without gangrene; G40.909 Epilepsy, unspecified, not intractable, without status epilepticus; F31.9 Bipolar disorder, unspecified; I25.119 Atherosclerotic heart disease of native coronary artery with unspecified angina pectoris; Z79.4 Long term (current) use of insulin; E78.5 Hyperlipidemia, unspecified; E03.9 Hypothyroidism, unspecified; K21.9 Gastro-esophageal reflux disease without esophagitis; I10 Essential (primary) hypertension; J10.2 Influenza due to other identified influenza virus with gastrointestinal manifestations; I08.1 Rheumatic disorders of both mitral and tricuspid valves; R31.9 Hematuria, unspecified; Z95.820 Peripheral vascular angioplasty status with implants and grafts; Z82.49 Family history of ischemic heart disease and other diseases of the circulatory system; Z79.82 Long term (current) use of aspirin; Z79.51 Long term (current) use of inhaled steroids; Z87.891 Personal history of nicotine dependence; Z79.890 Hormone replacement therapy; Z79.899 Other long term (current) drug therapy; Z79.84 Long term (current) use of oral hypoglycemic drugs; Z79.02 Long term (current) use of antithrombotics/antiplatelets; Z87.01 Personal history of pneumonia (recurrent); Z11.52 Encounter for screening for COVID-19; Z78.9 Other specified health status
CPT/HCPCS: 36415; 71045; 80053; 80061; 81001; 82565; 83036; 83605; 83735; 84145; 84484; 85025; 85610; 85730; 86140; 87040; 87636; 92972; 93005; 93306; 93454; 94640; 94760; 96361; 96365; 96366; 96368; 99291